=== PATIENT | female | born 1940 | race Caucasian/White ===

== ENCOUNTER 2018-05-10 12:57 | Outpatient (CLI) | payer MEDICARE, SELFPAY ==
[2018-05-10 14:11] LABS: Potassium 4.2 mmol/L (3.5-5.1)
== END 2018-05-10 13:17 ==
PROVIDERS: PCP General Practice; Visit Provider General Practice
DX: E87.6 Hypokalemia (principal)
CPT/HCPCS: 36415; 84132

== ENCOUNTER 2018-05-19 12:09 | Outpatient (REF) | payer MEDICARE, SELFPAY ==
[2018-05-22 23:05] LABS: 6-monoacetylmorphine Not Detected ng/mL (Cutoff: 25); Amphetamines Negative ng/mL (Cutoff: 500); Barbiturates Negative ng/mL (Cutoff: 200); Benzodiazepines Negative ng/mL (Cutoff: 100); Buprenorphine Not Detected ng/mL (Cutoff: 5); Cocaine Negative ng/mL (Cutoff: 150); Comment Normal; Creatinine, U 13.4 mg/dL; Dihydrocodeine Not Detected ng/mL (Cutoff: 25); EDDP Not Detected ng/mL (Cutoff: 25); Fentanyl Not Detected ng/mL (Cutoff: 2); Hydrocodone Not Detected ng/mL (Cutoff: 25); Hydromorphone Not Detected ng/mL (Cutoff: 25); Hydromorphone-3-beta-glucuroni Not Detected ng/mL (Cutoff: 100); Meperidine Not Detected ng/mL (Cutoff: 25); Methadone Not Detected ng/mL (Cutoff: 25); Morphine Not Detected ng/mL (Cutoff: 25); N-desmethyltapentadol Not Detected ng/mL (Cutoff: 50); Naloxone Not Detected ng/mL (Cutoff: 25); Norbuprenorphine Not Detected ng/mL (Cutoff: 5); Norfentanyl Not Detected ng/mL (Cutoff: 2); Norhydrocodone Not Detected ng/mL (Cutoff: 25); Normeperidine Not Detected ng/mL (Cutoff: 25); Noroxycodone Not Detected ng/mL (Cutoff: 25); Noroxymorphone Not Detected ng/mL (Cutoff: 25); O-desmethyltramadol Not Detected ng/mL (Cutoff: 25); Phencyclidine Negative ng/mL (Cutoff: 25); Propoxyphene Not Detected ng/mL (Cutoff: 25); Specific Gravity 1.001; Tapentadol Not Detected ng/mL (Cutoff: 25); Tetrahydrocannabinol Negative ng/mL (Cutoff: 50); Tramadol Not Detected ng/mL (Cutoff: 25); pH 6.4
[2018-05-31 10:00] LABS: Codeine Present ng/mL (Cutoff: 25)
== END 2018-05-19 12:29 ==
LOC: LBN 12:09
PROVIDERS: PCP General Practice; Visit Provider Nurse Practitioner Family
DX: G89.29 Other chronic pain (principal)
CPT/HCPCS: 80307; 80364

== ENCOUNTER 2018-08-30 15:36 | Outpatient (CLI) | payer MEDICARE, SELFPAY ==
[2018-08-30 16:12] LABS: Hemoglobin A1C 8.1 % (4.5-6.2)
== END 2018-08-30 15:56 ==
PROVIDERS: PCP General Practice; Visit Provider General Practice
DX: E11.9 Type 2 diabetes mellitus without complications (principal); R07.9 Chest pain, unspecified
CPT/HCPCS: 36415; 83036

== ENCOUNTER 2018-09-07 15:10 | Outpatient (REF) | payer MEDICARE, SELFPAY ==
[2018-09-13 00:41] LABS: 6-monoacetylmorphine Not Detected ng/mL (Cutoff: 25); Amphetamines Negative ng/mL (Cutoff: 500); Barbiturates Negative ng/mL (Cutoff: 200); Benzodiazepines Negative ng/mL (Cutoff: 100); Buprenorphine Not Detected ng/mL (Cutoff: 5); Cocaine Negative ng/mL (Cutoff: 150); Codeine Present ng/mL (Cutoff: 25); Comment Normal; Creatinine, U 60.9 mg/dL; Dihydrocodeine Not Detected ng/mL (Cutoff: 25); EDDP Not Detected ng/mL (Cutoff: 25); Fentanyl Not Detected ng/mL (Cutoff: 2); Hydrocodone Present ng/mL (Cutoff: 25); Hydromorphone Not Detected ng/mL (Cutoff: 25); Hydromorphone-3-beta-glucuroni Not Detected ng/mL (Cutoff: 100); Meperidine Not Detected ng/mL (Cutoff: 25); Methadone Not Detected ng/mL (Cutoff: 25); Morphine Present ng/mL (Cutoff: 25); N-desmethyltapentadol Not Detected ng/mL (Cutoff: 50); Naloxone Not Detected ng/mL (Cutoff: 25); Norbuprenorphine Not Detected ng/mL (Cutoff: 5); Norfentanyl Not Detected ng/mL (Cutoff: 2); Norhydrocodone Present ng/mL (Cutoff: 25); Normeperidine Not Detected ng/mL (Cutoff: 25); Noroxycodone Not Detected ng/mL (Cutoff: 25); Noroxymorphone Not Detected ng/mL (Cutoff: 25); O-desmethyltramadol Not Detected ng/mL (Cutoff: 25); Phencyclidine Negative ng/mL (Cutoff: 25); Propoxyphene Not Detected ng/mL (Cutoff: 25); Specific Gravity 1.012; Tapentadol Not Detected ng/mL (Cutoff: 25); Tetrahydrocannabinol Negative ng/mL (Cutoff: 50); Tramadol Not Detected ng/mL (Cutoff: 25); pH 5.9
== END 2018-09-07 15:30 ==
LOC: NCHCN 15:10
PROVIDERS: PCP General Practice; Visit Provider Nurse Practitioner Family
DX: Z79.891 Long term (current) use of opiate analgesic (principal); R69 Illness, unspecified
CPT/HCPCS: 80307; 80364

== ENCOUNTER 2018-09-15 09:51 | Inpatient (IN) | payer MEDICARE, SELFPAY ==
--- NOTE | 2018-09-15 10:04 | DI.RAD_ITS ---
SYMPTOM/DIAGNOSIS: FELL, PAIN RIGHT LEG: There is no evidence of a fracture or dislocation. RIGHT SHOULDER: There is some irregularity of the margin of the greater tuberosity and the possibility of a nondisplaced fracture could not be excluded. The findings may be related to an old injury, however if clinically appropriate, further assessment with CT is suggested.
--- NOTE | 2018-09-15 10:04 | ED.GENADUL_ITS ---
Discharge Plan Discharge Details Chief Complaint: Orthopedic Reason For Visit: R HUMERAL HEAD FX, S/P FALL, HYPERGLYCEMIA Admit Date/Time: 09/15/18 12:58 Admit Provider: Toñito Barrow Attending Provider: Toñito Barrow Primary Care Provider: Newton Dawn ED Provider: Nehemiah Adam Discharge Data Discharge Date/Time-TO BE ENTERED AT DEPARTURE: 09/15/18 14:02 Medical Decision Making 77-year-old woman with a history of diabetes/peripheral neuropathy transferred here via EMS for evaluation of injuries sustained in a fall 2 days ago. Denies other constitutional complaints but noted that her serum glucose level was in the 400s this morning prior to taking her morning dose of long-acting insulin and a half dose of her lispro. No distress on arrival but with significant pain in her right shoulder and right proximal leg immediately distal to the knee. Except for dry mucosa, remainder of her exam was unremarkable. Labs significant for GFR = 46, glucose 288, and CO2 = 208. Treated with additional subcu lispro and IV crystalloid. X-rays diagnostic for a possible greater humeral tuberosity fracture and a negative right tib-fib x-ray. Subsequent shoulder CT ordered which was negative for acute fracture. Treated on arrival with 10 units of lispro (other half dose plus extra for her hypoglycemia) and 1 L of lactated Ringer's. repeat serum glucose level = 191. Treated with acetaminophen, ibuprofen, and oral hydromorphone. Discussed case with Dr. Barrow. Admitted for further management. Medical Records Medical records reviewed: Yes I reviewed the patient's medical records. Imaging Data Radiologic Study: Imaging: X-Ray (Right shoulder) My impression: Possible greater humeral tuberosity fracture. Reviewed independently and contemporaneously by myself. Radiologist's impression: same Radiologic Study #2: Attestation: I personally reviewed and interpreted this imaging study as follows: Imaging: X-Ray (Right tibia/fibula) My impression: No acute bony injury appreciated. Reviewed independently contemporaneously by myself. Radiologist's impression: negative Radiologic Study #3: Attestation: I personally reviewed and interpreted this imaging study as follows: Imaging: CT Scan My impression: No evidence of acute fracture. Images interpreted independently contemporaneously by myself. Lab Data Lab results reviewed: Yes I reviewed the patient's lab results. Lab results narrative: GFR = 46, glucose 288, CO2 28 77-year-old woman with a past medical history which includes anxiety/depression, hypertension, hypothyroidism, and insulin-dependent diabetes. She has associated peripheral neuropathy and notes that her serum glucose levels vary at home up to 6-700s which she manages well at home with her . Transported here via EMS for evaluation of extremity injury sustained in a fall on Thursday evening (09/12). She describes losing her balance while walking in her house and having pain in her right shoulder after grabbing a support while her arm was adducted. She also had impact to her right leg with pain in her right knee/proximal lower leg. She denies other significant injury. She was unable to walk independently because of her leg pain and sat in the chair for the day. Yesterday, she was transferred to her bed. Today, she has worsening pain in her right proximal arm and her right knee/lower extremity. She denies any loss of motion/loss of sensation distally. She has had no other stigmata of her fall including no head pain, neck pain, back pain, chest pain/difficulty breathing, abdominal pain, or other extremity injury. HPI General Date/Time Provider Initiated Documentation: 09/15/18 10:01 . Related Data Home Medications Medication Instructions Recorded Confirmed insulin lispro [Humalog] 11 unit SQ DAILY 03/30/13 09/15/18 Glucagon Emergency Kit (human) 1 mg . DIRECTED PRN 05/08/13 09/15/18 nortriptyline 10 mg PO DAILY 08/07/16 09/15/18 levothyroxine 112 mcg tablet 112 mcg PO DAILY 05/12/18 09/15/18 lisinopril 20 mg tablet 20 mg PO DAILY tab-cap 05/12/18 09/15/18 propranolol 10 mg tablet 10 mg PO BID 05/12/18 09/15/18 acetaminophen 300 mg-codeine 30 mg 1 tab PO TID PRN 28 Days #84 tab 09/07/18 09/15/18 tablet MDD 3 tablets/day insulin detemir (U- 100) 100 See Rx Instructions SC BID 09/07/18 09/15/18 unit/mL subcutaneous solution pregabalin [Lyrica] 150 mg PO BID 09/15/18 09/15/18 Previous Rx's Medication Instructions Recorded acetaminophen 300 mg-codeine 30 mg 1 tab PO TID PRN 28 Days #84 tab 09/07/18 tablet MDD 3 tablets/day Allergies Allergy/AdvReac Type Severity Reaction Status Date / Time latex Allergy Unknown Unverified 09/07/18 11:55 propoxyphene HCl Allergy Unknown Unverified 09/07/18 11:55 [From Joi] Review of Systems Review of Systems All systems are reviewed and are unremarkable except as noted in HPI and below: CONSTITUTIONAL: no fevers/chills, no weakness or change in appetite EYES: no change in vision HEENT: no throat pain or difficulty swallowing; no neck pain CARDIOVASCULAR: no chest pain, palpitations, leg swelling, or diaphoresis RESPIRATORY: no cough, dyspnea, wheezing GASTROINTESTINAL: no abdominal pain, melena, nausea/emesis GENITOURINARY: no dysuria, flank pain, MUSCULOSKELETAL: no pack pain, right shoulder/proximal arm pain. Right knee/proximal lower leg pain. Unable to bear weight because of pain INTEGUMENTARY: no rash, no wounds NEUROLOGIC: no headache, focal weakness, difficulty with speech, numbness PSYCHIATRIC: no confusion, no anxiety HEME: no easy bruising or bleeding ALLERGIC: no urticaria All systems reviewed & are unremarkable except as noted in HPI and below PFSH Medical History Anxiety and depression (Acute) Diabetes type 1, controlled (Acute) Neuropathy (Acute) HTN (hypertension) (Chronic) Hypothyroidism (Chronic) Surgical History H/O sinus surgery (Acute) H/O thumb surgery (Acute) S/P wrist surgery (Acute) History of cholecystectomy (Chronic) History of tonsillectomy (Chronic) Social History household members: spouse housing: house number of children: 2 current occupational status: retired what type of physical activity do you participate in: none Smoking and Tabacco status: Never alcohol intake: current alcohol intake frequency: a few times a week Alcohol type: wine substance use type: does not use Exam Narrative Exam Narrative: Nursing note and vital signs have been reviewed and noted. GENERAL: alert, active, no acute distress, well -hydrated, well-nourished HEENT: atraumatic/normocephalic, PERRLA, EOMI, conjunctiva clear, external ears/canals normal, nasal mucosa normal NECK: supple, full range of motion, no mass, normal lymphadenopathy, no thyromegaly CARDIOVASCULAR: RRR, no murmurs, nl pulses, no edema PULMONARY: nl effort, no audible wheezing or stridor, nl breath sounds with no focal deficit. no chest wall tenderness ABDOMEN: soft, non-tender, non-distended, no mass, no organomegaly EXTREMITY: normal muscle tone, all joints with FROM, no deformity or tenderness NUERO: gross motor exam normal, normal stance and gait, PSYCH: alert and oriented, SKIN: no laceration or abrasions
--- NOTE | 2018-09-15 10:21 | NUR.NOTE ---
on the pt fell wile walking out of the kitchen landing on her left side. pt was then transferred to chair by . pt did not leave the chair until the ambulance was called today
[2018-09-15 10:22] VITALS: BP 158/79; PULSE 86; RESP 18; TEMP 36.8; O2SAT 98
[2018-09-15 10:56] LABS: Anion Gap 10.2 mmol/L (3-11); BUN 14 mg/dL (7-18); CO2 27.8 mmol/L (21.0-32.0); CREATININE 1.14 mg/dL (0.55-1.02); Calcium 9.3 mg/dL (8.5-10.1); Chloride 99 mmol/L (98-107); Estimated GFR 46.34 (mL/min/1.73m2); Glucose 288 mg/dL (70-100); Potassium 3.9 mmol/L (3.5-5.1); Sodium 137 mmol/L (136-145)
[2018-09-15] MEDS: Lactated Ringers 1,000 ML 1000 ML IV (11:16)
[2018-09-15] MEDS: Insulin Aspart 100 UNITS/ML UNIT 10 UNITS SC (11:16)
--- NOTE | 2018-09-15 12:58 | DI.CT_ITS ---
SYMPTOMS/DIAGNOSIS: FALL WITH POSSIBLE PROXIMAL HUMERUS FX RIGHT UPPER EXTREMITY CT: There is an apparent nondisplaced fracture involving the greater tuberosity and neck of the humerus.
--- NOTE | 2018-09-15 13:22 | DI.RAD_ITS ---
SYMPTOMS/DIAGNOSIS: FALL, ? INFECTIOUS PROCESS, HX DM AP AND LATERAL CHEST: The lungs are free of infiltrate. There is no pleural effusion. The cardiovascular structures are intact. SUMMARY: Normal chest.
[2018-09-15] MEDS: Acetaminophen 500 MG TAB 1000 MG PO (13:39)
[2018-09-15] MEDS: Ibuprofen 600 MG TAB PO (13:40)
[2018-09-15] MEDS: HYDROmorphone 2 MG TAB PO (13:40)
[2018-09-15 13:56] VITALS: BP 158/79; PULSE 78; RESP 16; TEMP 37.2; O2SAT 98
[2018-09-15 14:00] LABS: Troponin I < 0.02 ng/mL (0.00-0.06)
[2018-09-15 14:05] LABS: Bilirubin Negative (Negative); Blood Trace-lysed (Negative); Clarity Sl Cloudy; Glucose 500 mg/dL (Negative); Ketones 40 mg/dL (Negative); Leukocyte Esterase Negative (Negative); Nitrite Negative (Negative); Specific Gravity 1.025 (1.005-1.025); Urobilinogen 0.2 EU/dL (Up TO 0.2); pH 5.5 (5-8)
[2018-09-15 14:16] VITALS: BP 153/84; PULSE 83; RESP 19; TEMP 36.6; O2SAT 96
[2018-09-15 14:20] LABS: Bacteria Packed HPF (Negative)
[2018-09-15 14:21] LABS: Epithelial Cells Rare HPF (Negative); Other Cells Few Transitional (Negative)
[2018-09-15 14:22] LABS: C & S Indicated? Yes
[2018-09-15] MEDS: Enoxaparin 40 MG/0.4 ML SYR SC (14:24)
[2018-09-15 15:05] VITALS: O2SAT 94
[2018-09-15 16:22] VITALS: BP 125/76; PULSE 82; RESP 19; TEMP 36.2; O2SAT 95
[2018-09-15 16:37] LABS: HCT 41.9 % (36.0-46.0); HGB 13.8 g/dL (12.0-15.5); Mean Corp. HGB Concentration 32.9 g/dL (32.0-36.0); Mean Corpuscular Hemoglobin 30.5 pg (27.0-33.0); Mean Corpuscular Volume 92.7 fL (80-95); Mean Platelet Volume 12.5 fL (8.0-11.0); Platelet Count 164 x1000/uL (130-400); RBC 4.52 m/cumm (4.00-5.20); RBC Distribution Width 12.5 % (11.7-14.6); White Blood Cell Count 9.91 k/cumm (4.4-10.8)
[2018-09-15] MEDS: Acetaminophen 325 MG TAB PO (17:52)
--- NOTE | 2018-09-15 18:01 | W.PM.HP.N ---
Date of service: 09/15/18 Time of Service: 18:01 Assessment and Plan (1) Closed fracture of right proximal humerus: Current visit: Yes Status: Acute Status post fall 2 days prior to her admission. She has been seen by Dr. Foy in the past for a left hip fracture, she would prefer to be seen by Dr. Foy for this right humerus fracture. Apply sling. Tylenol with codeine for mild pain (she takes Tylenol with codeine for chronic pain at home), oxycodone as needed for moderate pain, IV morphine for severe/breakthrough pain. Will contact Dr. Foy tomorrow to see if he is available for orthopedic consult for this patient. Ice for comfort. Continue to monitor. PT consult placed. (2) Right knee pain: Current visit: Yes Status: Acute Status post fall at home. No fracture on plain films. Apply ice for comfort. Pain control as above. PT consulted as she has been unable to ambulate at home. (3) Diabetes mellitus type 1: Current visit: No Status: Acute She has had falls related to hypoglycemia at home. She also reports hyperglycemia. Monitor blood glucose closely. Continue home dose of long-acting insulin at 23 units daily. Aspart per sliding scale. Will adjust as needed. (4) TYLER (acute kidney injury): Current visit: Yes Status: Acute With mildly elevated creatinine on admission. Will give maintenance IV fluids overnight, reassess renal function in the morning. (5) Peripheral neuropathy: Current visit: No Status: Chronic Continue home regimen. (6) Orthodoxy: Current visit: No Status: Chronic No blood products. (7) DVT prophylaxis: Current visit: Yes Status: Acute Subcutaneous Lovenox. (8) Discharge planning issues: Current visit: Yes Status: Acute She is a full code. We discussed CODE STATUS, she would not to like to be intubated for a long period of time. She was unable to ambulate upon coming into the hospital, will have physical therapy work with her, she may require rehab prior to returning home with her elderly . This case is discussed with Dr. Barrow who is in agreement History of Present Illness Chief Complaint: Right arm and right knee pain. Narrative: Gale Steve is a very pleasant 77 year old female with a past medical history significant for type 1 diabetes, hypertension, chronic pain related to peripheral neuropathy and hypothyroidism, who fell at home 2 days ago. She had right shoulder/arm pain and right knee pain and was unable to ambulate which prompted her presentation to the ED. She had an x-ray of her right leg which did not show fracture or dislocation. She had a right shoulder x-ray that could not exclude a nondisplaced fracture, follow up CT of her right upper extremity revealed a nondisplaced fracture involving the greater tuberosity and neck of the humerus. She was admitted to the med/surg floor for further evaluation and treatment. She went on to have a chest x-ray which was normal. She had a urinalysis which was negative for leukocyte esterase, nitrates, 10-20 white blood cells, packed with bacteria, urine culture pending. Troponin was less than 0.02. She had no leukocytosis. She had a mild acute kidney injury with a creatinine of 1.14. Her glucose was elevated in the emergency department, she received insulin with improvement. She denies any dizziness prior to her fall, she denies any heart palpitations, she did not have low blood glucose at the time, she reports that she lost her balance. She denies headaches, fever, chills, shortness of breath, coughing, wheezing, chest pain/pressure, abdominal pain, nausea, vomiting, diarrhea. She is eating and drinking and tolerating her diet. She reports that she has seen Dr. Foy in the past when she fractured her left femur, she would prefer to see Dr. Foy for her right humerus fracture. Review of Systems Review of Systems All systems reviewed & are unremarkable except as noted in HPI and below PFSH Medical History Anxiety and depression (Acute) Diabetes type 1, controlled (Acute) Neuropathy (Acute) HTN (hypertension) (Chronic) Hypothyroidism (Chronic) Surgical History H/O sinus surgery (Acute) H/O thumb surgery (Acute) S/P wrist surgery (Acute) History of cholecystectomy (Chronic) History of tonsillectomy (Chronic) Family History Father Diabetes Heart disease Mother Stroke Social History household members: spouse housing: house number of children: 2 current occupational status: retired what type of physical activity do you participate in: none Smoking and Tabacco status: Never alcohol intake: current alcohol intake frequency: a few times a week Alcohol type: wine substance use type: does not use Meds Home Medications Medication Instructions Recorded Confirmed Type insulin lispro [Humalog] 11 unit SQ DAILY 03/30/13 09/15/18 History Glucagon Emergency Kit (human) 1 mg . DIRECTED PRN 05/08/13 09/15/18 History nortriptyline 10 mg PO DAILY 08/07/16 09/15/18 History levothyroxine 112 mcg tablet 112 mcg PO DAILY 05/12/18 09/15/18 History lisinopril 20 mg tablet 20 mg PO DAILY tab-cap 05/12/18 09/15/18 History propranolol 10 mg tablet 10 mg PO BID 05/12/18 09/15/18 History acetaminophen 300 mg-codeine 30 mg 1 tab PO TID PRN 28 Days #84 tab 09/07/18 09/15/18 Rx tablet MDD 3 tablets/day insulin detemir (U- 100) 100 See Rx Instructions SC BID 09/07/18 09/15/18 History unit/mL subcutaneous solution pregabalin [Lyrica] 150 mg PO BID 09/15/18 09/15/18 History Allergies Allergy/AdvReac Type Severity Reaction Status Date / Time latex Allergy Unknown Unverified 09/07/18 11:55 propoxyphene HCl Allergy Unknown Unverified 09/07/18 11:55 [From Joi] Exam Narrative Exam Narrative: General: Elderly female, pleasant and cooperative, lying flat in bed, in no acute distress. HEENT: Normocephalic, atraumatic, pupils equal and round, mucous membranes moist. Neck: Supple, no JVD. Respiratory: Respirations even and unlabored, lung sounds clear to auscultation throughout. Cardiovascular: Heart has a regular rate and rhythm, no murmur appreciated. GI: Abdomen soft, nontender on palpation, normoactive bowel sounds x4 quadrants, no masses appreciated. Extremities: Right upper extremity with anterior ecchymosis to proximal humerus, no obvious deformity. Radial pulses palpable bilaterally, no clubbing cyanosis or edema of bilateral lower extremities, pedal pulses palpable bilaterally. Right knee appears mildly swollen with no significant ecchymosis. Results Labs : 09/15/18 10:40 09/15/18 10:40 Laboratory Results - last 24 hr 09/15/18 09/15/18 09/15/18 10:05 10:05 10:10 WBC Cancelled RBC Cancelled Hgb Cancelled Hct Cancelled MCV Cancelled MCH Cancelled MCHC Cancelled RDW Cancelled Plt Count Cancelled MPV Cancelled Abs Immat Gran (auto) Cancelled Immature Gran % Cancelled Neutrophils % Cancelled Band Neutrophils % Cancelled Lymphocytes % Cancelled Atypical Lymphs % Cancelled Monocytes % Cancelled Eosinophils % Cancelled Basophils % Cancelled Absolute Neutrophils Cancelled Absolute Lymphocytes Cancelled Absolute Monocytes Cancelled Absolute Eosinophils Cancelled Absolute Basophils Cancelled Metamyelocytes Cancelled Myelocytes Cancelled Promyelocytes Cancelled Nucleated RBCs Cancelled Differential Comment Cancelled Other Cell Type Cancelled RBC Morphology Cancelled Polychromasia Cancelled Hypochromasia Cancelled Poikilocytosis Cancelled Basophilic Stippling Cancelled Anisocytosis Cancelled Microcytosis Cancelled Macrocytosis Cancelled Spherocytes Cancelled Target Cells Cancelled Tear Drop Cells Cancelled Ovalocytes Cancelled Stomatocytes Cancelled Judge[place] Bodies Cancelled Emani Cells Cancelled Acanthocytes (Spur) Cancelled Schistocytes Cancelled Sodium Cancelled Potassium Cancelled Chloride Cancelled Carbon Dioxide Cancelled Anion Gap Cancelled BUN Cancelled Creatinine Cancelled Estimated GFR/1.73 m2 Cancelled Glucose Cancelled Calcium Cancelled Magnesium Cancelled Total Bilirubin Cancelled AST Cancelled ALT Cancelled Alkaline Phosphatase Cancelled Troponin I Cancelled Cancelled Total Protein Cancelled Albumin Cancelled Urine Color Urine Clarity Urine pH Ur Specific [place] Urine Protein Urine Ketones Urine Blood Urine Nitrite Urine Bilirubin Urine Urobilinogen Ur Leukocyte Esterase Urine RBC Urine WBC Ur Epithelial Cells Urine Crystals Urine Bacteria Urine Mucus Urine Other Ur Culture Indicated? Urine Glucose 09/15/18 09/15/18 09/15/18 10:40 10:40 13:24 WBC 9.91 RBC 4.52 Hgb 13.8 Hct 41.9 MCV 92.7 MCH 30.5 MCHC 32.9 RDW 12.5 Plt Count 164 MPV 12.5 H Abs Immat Gran (auto) Immature Gran % Neutrophils % Band Neutrophils % Lymphocytes % Atypical Lymphs % Monocytes % Eosinophils % Basophils % Absolute Neutrophils Absolute Lymphocytes Absolute Monocytes Absolute Eosinophils Absolute Basophils Metamyelocytes Myelocytes Promyelocytes Nucleated RBCs Differential Comment Other Cell Type RBC Morphology Polychromasia Hypochromasia Poikilocytosis Basophilic Stippling Anisocytosis Microcytosis Macrocytosis Spherocytes Target Cells Tear Drop Cells Ovalocytes Stomatocytes Judge[place] Bodies [place] Cells Acanthocytes (Spur) Schistocytes Sodium 137 Potassium 3.9 Chloride 99 Carbon Dioxide 27.8 Anion Gap 10.2 BUN 14 Creatinine 1.14 H Estimated GFR/1.73 m2 46.34 Glucose 288 H Calcium 9.3 Magnesium Total Bilirubin AST ALT Alkaline Phosphatase Troponin I < 0.02 Total Protein Albumin Urine Color Urine Clarity Urine pH Ur Specific [place] Urine Protein Urine Ketones Urine Blood Urine Nitrite Urine Bilirubin Urine Urobilinogen Ur Leukocyte Esterase Urine RBC Urine WBC Ur Epithelial Cells Urine Crystals Urine Bacteria Urine Mucus Urine Other Ur Culture Indicated? Urine Glucose 09/15/18 13:57 WBC RBC Hgb Hct MCV MCH MCHC RDW Plt Count MPV Abs Immat Gran (auto) Immature Gran % Neutrophils % Band Neutrophils % Lymphocytes % Atypical Lymphs % Monocytes % Eosinophils % Basophils % Absolute Neutrophils Absolute Lymphocytes Absolute Monocytes Absolute Eosinophils Absolute Basophils Metamyelocytes Myelocytes Promyelocytes Nucleated RBCs Differential Comment Other Cell Type RBC Morphology Polychromasia Hypochromasia Poikilocytosis Basophilic Stippling Anisocytosis Microcytosis Macrocytosis Spherocytes Target Cells Tear Drop Cells Ovalocytes Stomatocytes Judge[place] Bodies [place] Cells Acanthocytes (Spur) Schistocytes Sodium Potassium Chloride Carbon Dioxide Anion Gap BUN Creatinine Estimated GFR/1.73 m2 Glucose Calcium Magnesium Total Bilirubin AST ALT Alkaline Phosphatase Troponin I Total Protein Albumin Urine Color Yellow Urine Clarity Sl cloudy Urine pH 5.5 Ur Specific [place] 1.025 Urine Protein 30 H Urine Ketones 40 H Urine Blood Trace-lysed H Urine Nitrite Negative Urine Bilirubin Negative Urine Urobilinogen 0.2 Ur Leukocyte Esterase Negative Urine RBC Not Applicable Urine WBC 10-20 Ur Epithelial Cells Rare Urine Crystals Not Applicable Urine Bacteria Packed Urine Mucus Not Applicable Urine Other Few transitional Ur Culture Indicated? Yes Urine Glucose 500 H Last Vital Signs Temp 36.2 C L 09/15/18 16:22 Pulse 82 09/15/18 16:22 Resp 19 09/15/18 16:22 BP 125/76 09/15/18 16:22 Pulse Ox 95 09/15/18 16:22
[2018-09-15] MEDS: Normal Saline Flush 10 ML SYR IVP (20:39)
[2018-09-15] MEDS: Normal Saline 1,000 ML 75 ML IV (20:41)
[2018-09-15] MEDS: Propranolol 10 MG TAB PO (20:42)
[2018-09-15] MEDS: Pregabalin 50 MG CAP 150 MG PO (20:42)
--- NOTE | 2018-09-15 22:55 | NUR.NOTE ---
Nursing Note: Patient has had 2-3 episodes of severe diaphoresis. Soaking her della and the bed. Patient became very pale with each episode. Patient states that she sweats and gets pale when her blood sugar drops too low. Each time her blood sugar was checked and it was not low.
[2018-09-15 23:35] VITALS: BP 123/78; PULSE 79; RESP 17; TEMP 36.5; O2SAT 96
[2018-09-16] VITALS (7 sets, daily range): BP systolic 172–186; BP diastolic 82–93; PULSE 72–87; RESP 18; TEMP 36.7–37.4; O2SAT 93–99
--- NOTE | 2018-09-16 07:10 | PDOC.CMIN ---
- If Service Date Differs Date of service: 09/16/18 Time of Service: 07:10 Care Management Initial Assess REASON FOR HOSPITALIZATION:: Closed fracture of (R) proximal humerus PAST MEDICAL HISTORY/PAST SURGICAL HISTORY:: Anxiety and depression (Acute). Diabetes type 1, controlled (Acute). Neuropathy (Acute). HTN (hypertension) (Chronic). Hypothyroidism (Chronic)H/O sinus surgery (Acute). H/O thumb surgery (Acute). S/P wrist surgery (Acute). History of cholecystectomy (Chronic). History of tonsillectomy (Chronic) PREVIOUS FUNCTIONAL STATUS/SOCIAL/FAMILY SUPPORTS:: Gale resides with her Federico in [facility], whom she has been to for 56 years. Gale states that she has two children, one in [place] and one in [facility]. 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 Gale reports that she has not driven in 18 years, and that her does the driving. Gale is independent at baseline and manages ADL's. CURRENT FUNCTIONAL STATUS:: Currently Gale is sitting up in her chair, she is pleasant and receptive to discussion. ADVANCE DIRECTIVES:: DPOA on file - Federico Steve is agent Has patient been provided with information about the portal?: Yes Did the patient sign up for the portal?: No CODE STATUS:: Full Code INSURANCE COVERAGE / FINANCIAL ISSUES:: Medicare CURRENT HOME/COMMUNITY SERVICES/EQUIPMENT:: Currently Gale has [employer] moderate needs with a homemaker and Bijal Arauz as the senior case manager. Gale has an electric w/c, cane, shower chair, Raised toilet, bed allen, and lifeline at home. PRIMARY CARE PHYSICIAN:: Dr. Dawn POTENTIAL DISCHARGE NEEDS:: F/U appointment with PCP. Home Health - Gale is interested in home health PT/OT. DME - ? need of FWW PATIENT/FAMILY EDUCATION NEEDS:: Review DC instructions, any limitations, and ongoing DC planning discussion. Discuss 'Ask Me Three' ANTICIPATED BARRIERS TO DISCHARGE:: None identified at this time TRANSPORTATION:: Via private vehicle with Federico PLAN:: Gale will return home with new home health PT/OT services, and a resumption of homemaking services. She will F/U with PCP and plan of care as prescribed. Gale's Federico will transport when ready.
--- NOTE | 2018-09-16 07:22 | INITIAL_ITS ---
- If Service Date Differs Date of service: 09/16/18 Time of Service: 07:10 Care Management Initial Assess REASON FOR HOSPITALIZATION:: Closed fracture of (R) proximal humerus PAST MEDICAL HISTORY/PAST SURGICAL HISTORY:: Anxiety and depression (Acute). Diabetes type 1, controlled (Acute). Neuropathy (Acute). HTN (hypertension) (Chronic). Hypothyroidism (Chronic)H/O sinus surgery (Acute). H/O thumb surgery (Acute). S/P wrist surgery (Acute). History of cholecystectomy (Chronic). History of tonsillectomy (Chronic) PREVIOUS FUNCTIONAL STATUS/SOCIAL/FAMILY SUPPORTS:: Gale resides with her Federico in [facility], whom she has been to for 56 years. Gale states that she has two children, one in [place] and one in [facility]. 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 Gale reports that she has not driven in 18 years, and that her does the driving. Gale is independent at baseline and manages ADL's. CURRENT FUNCTIONAL STATUS:: Currently Gale is sitting up in her chair, she is pleasant and receptive to discussion. ADVANCE DIRECTIVES:: DPOA on file - Federico Steve is agent Has patient been provided with information about the portal?: Yes Did the patient sign up for the portal?: No CODE STATUS:: Full Code INSURANCE COVERAGE / FINANCIAL ISSUES:: Medicare CURRENT HOME/COMMUNITY SERVICES/EQUIPMENT:: Currently Gale has [employer] moderate needs with a homemaker and Bijal Arauz as the window caser. Gale has an electric w/c, cane, shower chair, Raised toilet, bed allen, and lifeline at home. PRIMARY CARE PHYSICIAN:: Dr. Dawn POTENTIAL DISCHARGE NEEDS:: F/U appointment with PCP. Home Health - Gale is interested in home health PT/OT. DME - ? need of FWW PATIENT/FAMILY EDUCATION NEEDS:: Review DC instructions, any limitations, and ongoing DC planning discussion. Discuss 'Ask Me Three' ANTICIPATED BARRIERS TO DISCHARGE:: None identified at this time TRANSPORTATION:: Via private vehicle with Federico PLAN:: Gale will return home with new home health PT/OT services, and a resumption of homemaking services. She will F/U with PCP and plan of care as prescribed. Gale's Federico will transport when ready.
[2018-09-16 07:29] LABS: HCT 36.7 % (36.0-46.0); HGB 12.1 g/dL (12.0-15.5); Mean Corpuscular Hemoglobin 30.3 pg (27.0-33.0); Mean Platelet Volume 12.1 fL (8.0-11.0); Platelet Count 128 x1000/uL (130-400); RBC 3.99 m/cumm (4.00-5.20); RBC Distribution Width 12.1 % (11.7-14.6); White Blood Cell Count 7.87 k/cumm (4.4-10.8)
[2018-09-16 07:41] LABS: Anion Gap 12.1 mmol/L (3-11); BUN 13 mg/dL (7-18); CO2 25.9 mmol/L (21.0-32.0); CREATININE 0.76 mg/dL (0.55-1.02); Calcium 8.4 mg/dL (8.5-10.1); Chloride 101 mmol/L (98-107); Glucose 286 mg/dL (70-100); Magnesium 1.3 mg/dL (1.8-2.4); Potassium 3.7 mmol/L (3.5-5.1); Sodium 139 mmol/L (136-145)
[2018-09-16] MEDS: Nortriptyline 10 MG CAP PO (08:12)
[2018-09-16] MEDS: Pregabalin 50 MG CAP 150 MG PO ×2 (08:12→20:58)
[2018-09-16] MEDS: Propranolol 10 MG TAB PO ×2 (08:12→20:58)
[2018-09-16] MEDS: Levothyroxine 112 MCG TAB PO (08:12)
[2018-09-16] MEDS: Insulin Aspart 300 UNITS/3 ML PEN SC ×3 (08:19→17:17)
[2018-09-16 09:14] LABS: TSH 2.22 uIU/mL (0.358-3.74)
[2018-09-16] MEDS: POTASSIUM CHLORIDE 20 MEQ, POTASSIUM CHLORIDE 10 MEQ 30 MEQ PO (09:24)
[2018-09-16] MEDS: Normal Saline 1,000 ML 75 ML IV (09:36)
--- NOTE | 2018-09-16 10:13 | PT.INIE ---
Date of service: 09/16/18 Time of Service: 09:40 PT Notes Inpatient Physical Therapy Evaluation Date: 09/16/18 Referring Doctor: Jossy De Jesus NP PT Orders: PT CONSULT: Fall with subsequent right humeral head fracture, right knee pain, ambulatory dysfunction Precautions: Fall, standard Patient Profile/Admitting Diagnosis: Patient admitted 09/15/17 after suffering a fall at home. She fell on 09/13/2017, striking her right side. X-rays indicated possible fracture of the right shoulder. Patient reporting on admission and inability to ambulate times 2 days. PT consult has been ordered to address mobility issues. PMHX: Diabetes with peripheral neuropathy, anxiety and depression, hypertension, hypothyroidism Social History/Home Situation: Patient lives in a single level home with her elderly . She typically ambulates without an assistive device, although states that she is been thinking about beginning to use a walker due to her escalating falls. She has 5 steps to enter the home, with bilateral rails. She has friends with teenage children whom she hires to do work around the house including firewood, etc. She states that after her fall, they were able to assist her to get into bed and into her chair. Equipment Owned/DME: Power wheelchair, which patient states that she uses occasionally. She thinks she may have a walker at home, although is unsure Subjective: Gale states that she is feeling significantly better today versus yesterday. She has been trying to lift her right leg, and feels that her strength is starting to come back. Her pain is much better managed since getting pain medication this morning. She reports a history of frequent falls. States that she broke her left femur a couple of years ago, and utilized a wheelchair and walker as she rehabilitated. Since then she has had several falls, reporting many in the last 2 months. These typically occur in the home, and she relates these to blood sugar drops and dizziness. Objective: General Observation: Resting in bed with IV in left upper extremity Mental Status: A and O x3 Pain: 5/10 ROM: Right Upper Extremity: Sling in place to right upper extremity. 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 Upper extremity range of motion was otherwise not assessed. Left Upper Extremity: WFL Right Lower Extremity: Hip range of motion allows flexion to 100 degrees, rotation WFL. Right knee allows 0-110 degrees, limited by anterior knee pain. She does have fresh bruising noted throughout the anterior aspect of the right knee Left Lower Extremity: WFL Strength: Right Upper Extremity: Not assessed Left Upper Extremity: Shoulder flexion 4+/5. Biceps 4/5. Cardiac Cath Tech is strong Right Lower Extremity: Hip flexion 4-/5. Knee extension 4-/5. Knee flexion 4/5. Ankle dorsiflexion 4/5 Left Lower Extremity: Hip flexion 5/5. Knee extension 4+/5. Knee flexion 4+/5. Ankle dorsiflexion Sensation: Diminished through bilateral lower extremities Bed Mobility/Transfers: Supine to sit: Mod assist with head of bed at 35 degrees Sit to stand: Min assist Stand to sit: Min assist Bed to chair: Mod assist with hemiwalker Gait: Patient ambulates 4 feet with mod assist and use of left hemiwalker. She requires max cues for technique and equipment management. Balance: Static Sitting: Good Dynamic Sitting: Fair Static Standing: Fair Dynamic Standing: Fair Special Tests: Mobility Limitations Standardized Measure [facility] 6 clicks Basic Mobility Inpatient Short Form: Raw Score: 13 CMS Score: 65% deficit Informed Consent/Education: Patient instructed in purpose of PT consult and plan of care. Assessment: Patient is a 77 year old female referred to physical therapy services with the diagnosis of fall with subsequent right humeral head fracture, right knee pain, ambulatory dysfunction. Patient presents with clinical signs and symptoms consistent with diagnosis, with history of multiple falls. She currently demonstrates the following impairment level findings: 1. Decreased right knee range of motion 2. Mobilization of right upper extremity 3. pain 4. History of falls 5. Gait impairments 6. Decreased balance 7. Decreased strength right lower extremity Impairments are contributing to the following functional limitations: 1. Limited functional use of right upper extremity, due to current immobilization 2. Decreased tolerance to weightbearing on right lower extremity 3. Gait impairments, with reliance on hemiwalker due to inability to bear weight to right upper extremity 4. Unable to independently transfer supine to sit 5. Unable to independently ambulate 6. Unable to independently transfer Patient is assessed as Moderate [id number] complexity based on the following: History: 77-year-old female admitted after fall at home resulting in right humeral head fracture and trauma to the right knee. Complicating factors include advanced age and continuation of living independently with her elderly . Patient also has multiple steps to enter the home, and tolerates only limited weightbearing to the right lower extremity. She also has a complicated medical history including history of multiple falls, and diabetes with peripheral neuropathy. Examination: Functional limitations as noted above Presentation: Evolving Decision Making: Moderate complexity Goals: Goals X1 week 1. Supine-Sit: supervision 2. Sit-Supine: supervision 3. Sit-Stand : supervision 4. Stand-Sit : supervision 5. Bed-Chair: supervision with LRD 6. Chair-Bed: supervision with LRD 7. Gait : supervision with LRD x 25' 8. Stairs: min A with left rail x 5 steps Plan of Care/Treatment Plan: 1-2x/day, 7 days/week x 1 week. Plan of care has been reviewed with the EMPLOYMENT COORDINATOR providing the service under Physical Therapy direction. Initiate Physical Therapy intervention for strengthening, bed mobility, transfers, gait, stairs, balance training, use of assistive device. DISCHARGE RECOMMENDATIONS: Patient is adamant about returning home directly from hospital with assistance from family. She would likely benefit from a brief rehab stay prior to returning home given her significant limitations in mobility today on top of her extensive fall history. Her will be looking into whether they currently on a walker, and will await recommendations from orthopedics with regards to whether she can manage bilateral upper extremity support to walker. Otherwise will require either quad cane or hemiwalker, depending on progression over the next couple of sessions. TREATMENT CODE/TIME: 0940?1010; [id number] Lela Martinez, PT, DPT [facility]
--- NOTE | 2018-09-16 10:16 | IN_ITS ---
Date of service: 09/16/18 Time of Service: 09:40 PT Notes Inpatient Physical Therapy Evaluation Date: 09/16/18 Referring Doctor: Jossy De Jesus NP PT Orders: PT CONSULT: Fall with subsequent right humeral head fracture, right knee pain, ambulatory dysfunction Precautions: Fall, standard Patient Profile/Admitting Diagnosis: Patient admitted 09/15/17 after suffering a fall at home. She fell on 09/13/2017, striking her right side. X-rays indicated possible fracture of the right shoulder. Patient reporting on admission and inability to ambulate times 2 days. PT consult has been ordered to address mobility issues. PMHX: Diabetes with peripheral neuropathy, anxiety and depression, hypertension, hypothyroidism Social History/Home Situation: Patient lives in a single level home with her elderly . She typically ambulates without an assistive device, although states that she is been thinking about beginning to use a walker due to her escalating falls. She has 5 steps to enter the home, with bilateral rails. She has friends with teenage children whom she hires to do work around the house including firewood, etc. She states that after her fall, they were able to assist her to get into bed and into her chair. Equipment Owned/DME: Power wheelchair, which patient states that she uses occasionally. She thinks she may have a walker at home, although is unsure Subjective: Gale states that she is feeling significantly better today versus yesterday. She has been trying to lift her right leg, and feels that her strength is starting to come back. Her pain is much better managed since getting pain medication this morning. She reports a history of frequent falls. States that she broke her left femur a couple of years ago, and utilized a wheelchair and walker as she rehabilitated. Since then she has had several falls, reporting many in the last 2 months. These typically occur in the home, and she relates these to blood sugar drops and dizziness. Objective: General Observation: Resting in bed with IV in left upper extremity Mental Status: A and O x3 Pain: 5/10 ROM: Right Upper Extremity: Sling in place to right upper extremity. 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 Upper extremity range of motion was otherwise not assessed. Left Upper Extremity: WFL Right Lower Extremity: Hip range of motion allows flexion to 100 degrees, rotation WFL. Right knee allows 0-110 degrees, limited by anterior knee pain. She does have fresh bruising noted throughout the anterior aspect of the right knee Left Lower Extremity: WFL Strength: Right Upper Extremity: Not assessed Left Upper Extremity: Shoulder flexion 4+/5. Biceps 4/5. Belt Loop Machine Operator is strong Right Lower Extremity: Hip flexion 4-/5. Knee extension 4-/5. Knee flexion 4/5. Ankle dorsiflexion 4/5 Left Lower Extremity: Hip flexion 5/5. Knee extension 4+/5. Knee flexion 4+/5. Ankle dorsiflexion Sensation: Diminished through bilateral lower extremities Bed Mobility/Transfers: Supine to sit: Mod assist with head of bed at 35 degrees Sit to stand: Min assist Stand to sit: Min assist Bed to chair: Mod assist with hemiwalker Gait: Patient ambulates 4 feet with mod assist and use of left hemiwalker. She requires max cues for technique and equipment management. Balance: Static Sitting: Good Dynamic Sitting: Fair Static Standing: Fair Dynamic Standing: Fair Special Tests: Mobility Limitations Standardized Measure [facility] 6 clicks Basic Mobility Inpatient Short Form: Raw Score: 13 CMS Score: 65% deficit Informed Consent/Education: Patient instructed in purpose of PT consult and plan of care. Assessment: Patient is a 77 year old female referred to physical therapy services with the diagnosis of fall with subsequent right humeral head fracture, right knee pain, ambulatory dysfunction. Patient presents with clinical signs and symptoms consistent with diagnosis, with history of multiple falls. She currently demonstrates the following impairment level findings: 1. Decreased right knee range of motion 2. Mobilization of right upper extremity 3. pain 4. History of falls 5. Gait impairments 6. Decreased balance 7. Decreased strength right lower extremity Impairments are contributing to the following functional limitations: 1. Limited functional use of right upper extremity, due to current immobilization 2. Decreased tolerance to weightbearing on right lower extremity 3. Gait impairments, with reliance on hemiwalker due to inability to bear weight to right upper extremity 4. Unable to independently transfer supine to sit 5. Unable to independently ambulate 6. Unable to independently transfer Patient is assessed as Moderate [id number] complexity based on the following: History: 77-year-old female admitted after fall at home resulting in right humeral head fracture and trauma to the right knee. Complicating factors include advanced age and continuation of living independently with her elderly . Patient also has multiple steps to enter the home, and tolerates only limited weightbearing to the right lower extremity. She also has a complicated medical history including history of multiple falls, and diabetes with peripheral neuropathy. Examination: Functional limitations as noted above Presentation: Evolving Decision Making: Moderate complexity Goals: Goals X1 week 1. Supine-Sit: supervision 2. Sit-Supine: supervision 3. Sit-Stand : supervision 4. Stand-Sit : supervision 5. Bed-Chair: supervision with LRD 6. Chair-Bed: supervision with LRD 7. Gait : supervision with LRD x 25' 8. Stairs: min A with left rail x 5 steps Plan of Care/Treatment Plan: 1-2x/day, 7 days/week x 1 week. Plan of care has been reviewed with the ETHYLBENZENE OXIDIZER providing the service under Physical Therapy direction. Initiate Physical Therapy intervention for strengthening, bed mobility, transfers, gait, stairs, balance training, use of assistive device. DISCHARGE RECOMMENDATIONS: Patient is adamant about returning home directly from hospital with assistance from family. She would likely benefit from a brief rehab stay prior to returning home given her significant limitations in mobility today on top of her extensive fall history. Her will be looking into whether they currently on a walker, and will await recommendations from orthopedics with regards to whether she can manage bilateral upper extremity support to walker. Otherwise will require either quad cane or hemiwalker, depending on progression over the next couple of sessions. TREATMENT CODE/TIME: 0940?1010; [id number] Lela Martinez, PT, DPT [facility]
[2018-09-16] MEDS: MAGNESIUM SULFATE 4 GM/100 ML BAG IVPB (10:29)
[2018-09-16] MEDS: Enoxaparin 40 MG/0.4 ML SYR SC (13:54)
--- NOTE | 2018-09-16 14:11 | OCONE_ITS ---
Date of service: 09/16/18 Time of Service: 14:00 History of Present Illness Chief Complaint: Painful to bear weight on right leg, painful right shoulder Narrative: Is a 77-year-old white female who fell in her home on 09/13/2018 from a standing height. She injured her right shoulder and her right knee. She waited a day before seeking medical attention. She said she could initially bear weight on her right leg, but over the next 2 days the pain got worse until she could not walk. She went to the emergency room yesterday 09/15/2018 and was admitted because she could not walk. No x-rays were taken of the knee. She had x-rays of her tibia and fibula which were negative for fracture. She had x-rays of her right shoulder which showed a nondisplaced 2 part fracture of the proximal humerus. She also had a CT scan of her right shoulder which confirmed a 2 part fracture of the proximal humerus. She is presently in a sling on the right. She reports her shoulder pain is much less. She also reports that her knee pain is less and she was able to take a few steps in the room today. She was fully ambulatory before she fell. I was consulted for further care and treatment. I have previously performed a compression screw fixation of a IT fracture on the left. Consults Consult date: 09/16/18 Requesting physician: Jossy De Jesus Assessment and Plan (1) Right knee pain: Current visit: Yes Status: Acute Assessment: She needs right knee x-rays for better assessment. Even if the x-rays are normal she may need to have an aspiration of her effusion for further diagnosis. Plan: Have discussed with Jossy De Jesus NP. She will order x-rays I can review tomorrow. We will decide whether to do a arthrocentesis of her knee after a look at the x-rays tomorrow. (2) Closed fracture of right proximal humerus: Current visit: Yes Status: Acute Assessment: 2 part fracture proximal humerus minimally displaced in good alignment. All she will need is closed treatment. Plan: Would continue with the sling for comfort. We will start mobilizing her shoulder in a couple of weeks. [facility] Medical History Anxiety and depression (Acute) Diabetes type 1, controlled (Acute) Neuropathy (Acute) HTN (hypertension) (Chronic) Hypothyroidism (Chronic) Surgical History H/O sinus surgery (Acute) H/O thumb surgery (Acute) S/P wrist surgery (Acute) History of cholecystectomy (Chronic) History of tonsillectomy (Chronic) Social History household members: spouse housing: house number of children: 2 current occupational status: retired what type of physical activity do you participate in: none Smoking and Tabacco status: Never alcohol intake: current alcohol intake frequency: a few times a week Alcohol type: wine substance use type: does not use Exam Narrative Exam Narrative: She does appear to have an effusion in her right knee. I can extend her to within a few degrees of full extension. Passive flexion is to 120 degrees. I do not detect any significant significant varus /valgus laxity when stressed and 30 degrees of flexion. She has good AP stability. Right arm is in a sling. Median radial and ulnar nerve function normal in the right hand. She has local tenderness on palpating over the proximal humerus. I review her plain films and a CT scan of her right shoulder. X-rays show a nondisplaced or minimally displaced 2 part fracture proximal humerus on the right. Tib-fib x-rays on the right are normal without fracture. There are no x-rays of the knee. Results Last Vital Signs Temp 36.7 C 09/16/18 08:59 Pulse 81 09/16/18 13:34 Resp 18 09/16/18 08:59 BP 186/82 H 09/16/18 08:59 Pulse Ox 93 L 09/16/18 08:59 Labs : 09/16/18 06:30 09/16/18 06:30 Laboratory Results - last 24 hr 09/15/18 09/15/18 09/15/18 10:40 13:24 13:57 WBC 9.91 RBC 4.52 Hgb 13.8 Hct 41.9 MCV 92.7 MCH 30.5 MCHC 32.9 RDW 12.5 Plt Count 164 MPV 12.5 H Sodium Potassium Chloride Carbon Dioxide Anion Gap BUN Creatinine Estimated GFR/1.73 m2 Glucose Calcium Magnesium Troponin I < 0.02 TSH Urine Color Yellow Urine Clarity Sl cloudy Urine pH 5.5 Ur Specific [place] 1.025 Urine Protein 30 H Urine Ketones 40 H Urine Blood Trace-lysed H Urine Nitrite Negative Urine Bilirubin Negative Urine Urobilinogen 0.2 Ur Leukocyte Esterase Negative Urine RBC Not Applicable Urine WBC 10-20 Ur Epithelial Cells Rare Urine Crystals Not Applicable Urine Bacteria Packed Urine Mucus Not Applicable Urine Other Few transitional Ur Culture Indicated? Yes Urine Glucose 500 H 09/16/18 09/16/18 06:30 06:30 WBC 7.87 RBC 3.99 L Hgb 12.1 Hct 36.7 MCV 92.0 MCH 30.3 MCHC 33.0 RDW 12.1 Plt Count 128 L MPV 12.1 H Sodium 139 Potassium 3.7 Chloride 101 Carbon Dioxide 25.9 Anion Gap 12.1 H BUN 13 Creatinine 0.76 Estimated GFR/1.73 m2 >= 60.00 Glucose 286 H Calcium 8.4 L Magnesium 1.3 L Troponin I TSH 2.22 Urine Color Urine Clarity Urine pH Ur Specific [place] Urine Protein Urine Ketones Urine Blood Urine Nitrite Urine Bilirubin Urine Urobilinogen Ur Leukocyte Esterase Urine RBC Urine WBC Ur Epithelial Cells Urine Crystals Urine Bacteria Urine Mucus Urine Other Ur Culture Indicated? Urine Glucose
--- NOTE | 2018-09-16 14:24 | PT.INTREAT ---
Date of service: 09/16/18 Time of Service: 14:24 PT Notes Inpatient Physical Therapy Treatment Note [facility] Date: 09/16/18 PRECAUTIONS: Fall SUBJECTIVE: Gale states that she feels that she was left sitting up in her chair for too long this morning, she reports that she struggled to get back to bed after sitting up that long. OBJECTIVE: PAIN: Patient complained of right shoulder pain with stand?to?sit transfer BED MOBILITY/TRANSFERS Supine-sit: CGA Sit-stand: Min A Stand-sit: CGA GAIT Assistive Device: Hemiwalker Weight bearing: WBAT Assist: Min A x2 Distance: 10' x2 Deviation: Minimal cueing for gait sequence with hemiwalker ASSESSMENT: Patient tolerated session well with minimal complaint of right shoulder pain. She was able to tolerate a progression in gait distance with hemiwalker, with minimal cueing for gait sequence. She would benefit from continued gait and transfer training as well as strengthening for improved mobility and activity tolerance. PLAN: Continue with PT's POC TREATMENT CODE/TIME: 20 minutes; [id number]
--- NOTE | 2018-09-16 15:15 | DI.RAD_ITS ---
SYMPTOM/DIAGNOSIS: RT KNEE SWELLING, PAIN, S/P FALL, HUMERUS FX RIGHT KNEE: Three views. The bones appear osteopenic. No definite acute fracture or dislocation is identified. Note is made of a suprapatellar effusion. Vascular calcifications are present. IMPRESSION: No definite evidence of an acute fracture. Suprapatellar joint effusion. This can be seen with trauma or infection. If there is continued concern for an occult fracture, CT scan and/or MRI should be considered for further evaluation.
--- NOTE | 2018-09-16 15:16 | W.PM.PROGNOT ---
Date of Service Date of service: 09/16/18 Time of Service: 15:16 Assessment and Plan (1) Closed fracture of right proximal humerus: Current visit: Yes Status: Acute Status post fall 2 days prior to her admission. She has been seen by Dr. Foy, ortho, he is requesting right knee x-ray- currently pending. Continue sling to right arm for comfort, begin to mobilize right arm in 2 weeks. Tylenol with codeine for mild pain (she takes Tylenol with codeine for chronic pain at home), oxycodone as needed for moderate pain, IV morphine for severe/breakthrough pain. Ice for comfort. Continue PT. Ortho to follow up tomorrow after reviewing right knee films, possible right knee aspiration tomorrow. Reports falls at home, place on tele, EKG pending. (2) Right knee pain: Current visit: Yes Status: Acute As above. (3) UTI (urinary tract infection): Current visit: Yes Status: Acute Urine culture growing e-coli, >100,000 colonies. IV Ceftriaxone initiated today. Continue to monitor cultures. (4) Diabetes mellitus type 1: Current visit: No Status: Acute Monitor blood glucose closely. Continue home dose of long-acting insulin at 23 units daily. Aspart per sliding scale, increased to moderate today. Adjust insulin as needed. Continue ADA diet. (5) TYLER (acute kidney injury): Current visit: Yes Status: Acute With mildly elevated creatinine on admission. Creatinine normal today. Discontinue IV fluids and reassess BMP in the morning. (6) Peripheral neuropathy: Current visit: No Status: Chronic Continue home regimen. 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 (8) DVT prophylaxis: Current visit: Yes Status: Acute Subcutaneous Lovenox. (9) Discharge planning issues: Current visit: Yes Status: Acute She is a full code. We discussed CODE STATUS, she would not to like to be intubated for a long period of time. She was unable to ambulate upon coming into the hospital, Continue physical therapy, she may require rehab prior to returning home with her elderly , she would prefer to return home. This case is discussed with Dr. Barrow who is in agreement Subjective Interval history since last seen: Mrs. Steve is a very pleasant 77-year-old female with a past medical history significant for type 1 diabetes, hypertension, chronic pain related to peripheral neuropathy and hypothyroidism. She fell at home and sustained a right humerus fracture, she presented to the emergency department because she was unable to bear weight due to the pain in her right knee. She also reported swelling in that right knee. She had a tib/fib x-ray which did not show a fracture. She was seen by Dr. Foy, orthopedics who requests a right knee x-ray. She continues to report pain in the right arm, she is wearing a sling. She reports improvement in her right knee pain. She is not using her PRN pain medications. She is working with PT. She plans to return home when she is ready for discharge. Her urine culture is growing e-coli, >100,000 colonies, she denies dysuria or hematuria, no fevers, chills, shortness of breath, coughing, wheezing, chest pain/pressure, abdominal pain, nausea, vomiting, diarrhea. She is eating and drinking and tolerating her diet. Exam Narrative Exam Narrative: General: Elderly female, pleasant and cooperative, lying in bed with head of bed elevated, in no acute distress. HEENT: Normocephalic, atraumatic, pupils equal and round, mucous membranes moist. Neck: Supple, no JVD. Respiratory: Respirations even and unlabored, lung sounds clear to auscultation throughout. Cardiovascular: Heart has a regular rate and rhythm, no murmur appreciated. GI: Abdomen soft, nontender on palpation, normoactive bowel sounds x4 quadrants, no masses appreciated. Extremities: Right upper extremity with anterior ecchymosis over proximal humerus, no obvious deformity. Radial pulses palpable bilaterally, no clubbing cyanosis or edema of bilateral lower extremities, pedal pulses palpable bilaterally. Right knee appears mildly swollen with no significant ecchymosis. Objective Objective Clinical Data: Abnormal lab results 09/15/18 09/16/18 09/16/18 Range/Units 10:40 06:30 06:30 RBC 3.99 L (4.00-5.20) m/cumm Plt Count 128 L (130-400) x1000/uL MPV 12.5 H 12.1 H (8.0-11.0) fL Anion Gap 12.1 H (3-11) mmol/L Glucose 286 H (70-100) mg/dL Calcium 8.4 L (8.5-10.1) mg/dL Magnesium 1.3 L (1.8-2.4) mg/dL Vital Signs Temperature 36.7 C 09/16/18 08:59 Temperature Source Tympanic 09/16/18 08:59 Pulse 81 09/16/18 13:34 Pulse Rhythm Regular 09/16/18 09:18 Respiratory Rate 18 09/16/18 08:59 Respiratory Effort Non-Labored 09/16/18 09:18 Respiratory Depth Normal 09/16/18 09:18 Respiratory Pattern Normal 09/16/18 04:30 Blood Pressure 186/82 H 09/16/18 08:59 Blood Pressure Position Sitting 09/15/18 10:22 Pulse Oximetry 93 L 09/16/18 08:59 Oxygen Delivery Method Room Air 09/16/18 08:59 Oxygen Flow Rate 0 09/16/18 08:59 Pain Level 1 09/15/18 23:35 Intake & Output 09/15/18 09/16/18 09/16/18 23:59 11:59 23:59 Intake Total 1240 / 1240 1336.25 / 1598.75 262.5 / 1598.75 Output Total 300 / 300 650 / 650 Balance 940 / 940 686.25 / 948.75 262.5 / 948.75 Weight 72.4 kg 72.5 kg Intake: IV 1000 / 1000 1136.25 / 1248.75 112.5 / 1248.75 Oral 240 / 240 200 / 350 150 / 350 Output: Urine 300 / 300 650 / 650 Other: Urine Color Straw Light Neena Light Neena Urine Appearance Clear Clear Cloudy Urine Odor Normal Comment amount unknown. Stool Size Moderate Stool Characteristics Liquid Soft Brown Formed Brown Voiding Methods Bedpan Bedpan Toilet Laboratory Results WBC 7.87 k/cumm (4.4-10.8) 09/16/18 06:30 RBC 3.99 m/cumm (4.00-5.20) L 09/16/18 06:30 Hgb 12.1 g/dL (12.0-15.5) 09/16/18 06:30 Hct 36.7 % (36.0-46.0) 09/16/18 06:30 MCV 92.0 fL (80-95) 09/16/18 06:30 MCH 30.3 pg (27.0-33.0) 09/16/18 06:30 MCHC 33.0 g/dL (32.0-36.0) 09/16/18 06:30 RDW 12.1 % (11.7-14.6) 09/16/18 06:30 Plt Count 128 x1000/uL (130-400) L 09/16/18 06:30 MPV 12.1 fL (8.0-11.0) H 09/16/18 06:30 Abs Immat Gran (auto) Cancelled 09/15/18 10:05 Immature Gran % Cancelled 09/15/18 10:05 Neutrophils % Cancelled 09/15/18 10:05 Band Neutrophils % Cancelled 09/15/18 10:05 Lymphocytes % Cancelled 09/15/18 10:05 Atypical Lymphs % Cancelled 09/15/18 10:05 Monocytes % Cancelled 09/15/18 10:05 Eosinophils % Cancelled 09/15/18 10:05 Basophils % Cancelled 09/15/18 10:05 Absolute Neutrophils Cancelled 09/15/18 10:05 Absolute Lymphocytes Cancelled 09/15/18 10:05 Absolute Monocytes Cancelled 09/15/18 10:05 Absolute Eosinophils Cancelled 09/15/18 10:05 Absolute Basophils Cancelled 09/15/18 10:05 Metamyelocytes Cancelled 09/15/18 10:05 Myelocytes Cancelled 09/15/18 10:05 Promyelocytes Cancelled 09/15/18 10:05 Nucleated RBCs Cancelled 09/15/18 10:05 Differential Comment Cancelled 09/15/18 10:05 Other Cell Type Cancelled 09/15/18 10:05 RBC Morphology Cancelled 09/15/18 10:05 Polychromasia Cancelled 09/15/18 10:05 Hypochromasia Cancelled 09/15/18 10:05 Poikilocytosis Cancelled 09/15/18 10:05 Basophilic Stippling Cancelled 09/15/18 10:05 Anisocytosis Cancelled 09/15/18 10:05 Microcytosis Cancelled 09/15/18 10:05 Macrocytosis Cancelled 09/15/18 10:05 Spherocytes Cancelled 09/15/18 10:05 Target Cells Cancelled 09/15/18 10:05 Tear Drop Cells Cancelled 09/15/18 10:05 Ovalocytes Cancelled 09/15/18 10:05 Stomatocytes Cancelled 09/15/18 10:05 [place] Bodies Cancelled 09/15/18 10:05 [place] Cells Cancelled 09/15/18 10:05 Acanthocytes (Spur) Cancelled 09/15/18 10:05 Schistocytes Cancelled 09/15/18 10:05 Sodium 139 mmol/L (136-145) 09/16/18 06:30 Potassium 3.7 mmol/L (3.5-5.1) 09/16/18 06:30 Chloride 101 mmol/L (98-107) 09/16/18 06:30 Carbon Dioxide 25.9 mmol/L (21.0-32.0) 09/16/18 06:30 Anion Gap 12.1 mmol/L (3-11) H 09/16/18 06:30 BUN 13 mg/dL (7-18) 09/16/18 06:30 Creatinine 0.76 mg/dL (0.55-1.02) 09/16/18 06:30 Estimated GFR/1.73 m2 >= 60.00 (mL/min/1.73m2) 09/16/18 06:30 Glucose 286 mg/dL (70-100) H 09/16/18 06:30 Calcium 8.4 mg/dL (8.5-10.1) L 09/16/18 06:30 Magnesium 1.3 mg/dL (1.8-2.4) L 09/16/18 06:30 Total Bilirubin Cancelled 09/15/18 10:05 AST Cancelled 09/15/18 10:05 ALT Cancelled 09/15/18 10:05 Alkaline Phosphatase Cancelled 09/15/18 10:05 Troponin I < 0.02 ng/mL (0.00-0.06) 09/15/18 13:24 Total Protein Cancelled 09/15/18 10:05 Albumin Cancelled 09/15/18 10:05 TSH 2.22 uIU/mL (0.358-3.74) 09/16/18 06:30 Urine Color Yellow (Yellow) 09/15/18 13:57 Urine Clarity Sl cloudy 09/15/18 13:57 Urine pH 5.5 (5-8) 09/15/18 13:57 Ur Specific [place] 1.025 (1.005-1.025) 09/15/18 13:57 Urine Protein 30 mg/dL (Negative) H 09/15/18 13:57 Urine Ketones 40 mg/dL (Negative) H 09/15/18 13:57 Urine Blood Trace-lysed (Negative) H 09/15/18 13:57 Urine Nitrite Negative (Negative) 09/15/18 13:57 Urine Bilirubin Negative (Negative) 09/15/18 13:57 Urine Urobilinogen 0.2 EU/dL (Up TO 0.2) 09/15/18 13:57 Ur Leukocyte Esterase Negative (Negative) 09/15/18 13:57 Urine RBC Not Applicable 09/15/18 13:57 Urine WBC 10-20 HPF (0-5) 09/15/18 13:57 Ur Epithelial Cells Rare HPF (Negative) 09/15/18 13:57 Urine Crystals Not Applicable 09/15/18 13:57 Urine Bacteria Packed HPF (Negative) 09/15/18 13:57 Urine Mucus Not Applicable 09/15/18 13:57 Urine Other Few transitional (Negative) 09/15/18 13:57 Ur Culture Indicated? Yes 09/15/18 13:57 Urine Glucose 500 mg/dL (Negative) H 09/15/18 13:57
--- NOTE | 2018-09-16 15:18 | PHARADMIT ---
Addendum entered by Jaime Mendoza III 09/17/18 14:56: Patient complained of right knee pain. determine it is from an occult fracture, he aspirated the knee and injected with steroid. Continue mobilization and PT. Patient should ready for discharge tomorrow. Patient also has UTI treated with Rocephin. VS-OK pain:11/10 K+3.6 Labs-WNL Original Note: Admission Pharmacy Clinical Review R HUMERAL HEAD FX, S/P FALL, HYPERGLYCEMIA Code Status Full Code Current Weight Wgt-72.5 kg Renally Cleared and Narrow Therapeutic Index Meds CrCl~ 49.48 mL/min Meds-OK QTc Value / Action Taken QTc-473 BP Control, Fever BP- 186/82 Tmax- 36.7C Electrolytes reviewed Na-139 K+3.7 Mag- 1.3 DVT Prophylaxis Lovenox Opiate Usage / Scheduled Bowel Regimen Ordered Yes Yes Plt/SCr for Heparin / Enoxaparin Plts-128 SCr-0.76 INR for Warfarin na H/H stable, WBC/Bands H&H-12.1/36.7 WBC- 7.87 Antibiotic appropriateness Rocephin, Cultures and Sensitivities [id number] Surgical ABX d/c within 24 hr na DM control / Insulin Dosing BG-286 Detemir, Aspart Heart Failure (Check EF%) (ADRIA's, B-Block, Diuretics) Propranolol IV to PO Switch No Home Meds Reviewed Yes Home Meds Not Ordered Lisinopril, Glucagon,, Lispro, Comments Flu vaccine given
[2018-09-16] MEDS: Normal Saline Flush 10 ML SYR IVP (15:42)
--- NOTE | 2018-09-16 16:27 | DI.VRAD_ITS ---
EXAM: XR Right Knee, 3 Views EXAM DATE/TIME: 09/16/2018 4:00 PM CLINICAL HISTORY: 77 years old, female; Injury or trauma; Fall; Initial encounter; Blunt trauma; Knee; Right; Patient HX: Right knee swelling and pain; Additional info: S/P fall w/humerusfx TECHNIQUE: XR Right knee 3 views. COMPARISON: CR XR tib/fib RT 09/15/2018 11:32 AM FINDINGS: Bones/joints: No acute fracture identified. Skeletal degenerative changes are seen. Soft tissues: There is a suprapatellar knee effusion. Vascular and soft tissue calcifications are seen. IMPRESSION: 1. No acute fracture identified. 2. Suprapatellar knee effusion. This is a nonspecific finding that can be seen with trauma or infection. If symptoms remain concerning, MRI could be considered. Dictated and Authenticated by: Bethanie Gonsales MD. Ordering:LORENE Fenton MD
[2018-09-16] MEDS: Lisinopril 20 MG TAB PO (17:38)
[2018-09-17] VITALS (8 sets, daily range): BP systolic 156–186; BP diastolic 75–85; PULSE 71–84; RESP 17–20; TEMP 36.6–38.1; O2SAT 93–98
[2018-09-17 07:04] LABS: HCT 34.5 % (36.0-46.0); HGB 11.4 g/dL (12.0-15.5); Mean Corpuscular Hemoglobin 30.3 pg (27.0-33.0); Mean Corpuscular Volume 91.8 fL (80-95); Mean Platelet Volume 11.9 fL (8.0-11.0); Platelet Count 157 x1000/uL (130-400); RBC 3.76 m/cumm (4.00-5.20); RBC Distribution Width 12.2 % (11.7-14.6)
[2018-09-17 07:06] LABS: Anion Gap 9.2 mmol/L (3-11); BUN 12 mg/dL (7-18); CO2 27.8 mmol/L (21.0-32.0); CREATININE 0.79 mg/dL (0.55-1.02); Calcium 8.4 mg/dL (8.5-10.1); Chloride 104 mmol/L (98-107); Glucose 127 mg/dL (70-100); Potassium 3.6 mmol/L (3.5-5.1); Sodium 141 mmol/L (136-145)
[2018-09-17] MEDS: Pregabalin 50 MG CAP 150 MG PO ×2 (08:22→20:03)
[2018-09-17] MEDS: Levothyroxine 112 MCG TAB PO (08:22)
[2018-09-17] MEDS: Nortriptyline 10 MG CAP PO (08:23)
[2018-09-17] MEDS: Normal Saline Flush 10 ML SYR IVP ×2 (08:23→13:09)
[2018-09-17] MEDS: Lisinopril 20 MG TAB PO (08:23)
[2018-09-17] MEDS: Propranolol 10 MG TAB PO ×2 (08:23→20:03)
[2018-09-17] MEDS: Insulin Aspart 300 UNITS/3 ML PEN SC ×3 (08:24→17:26)
--- NOTE | 2018-09-17 08:32 | PT.INTREAT ---
Date of service: 09/17/18 Time of Service: 08:32 PT Notes Inpatient Physical Therapy Treatment Note [facility] Date: 09/17/18 PRECAUTIONS: Fall SUBJECTIVE: Gale states that she is feeling better today, although reports some stiffness in her R knee area. OBJECTIVE: PAIN: Patient c/o some discomfort/stiffness in R knee with gait training BED MOBILITY/TRANSFERS Supine-sit: SBA with HOB at 10 degrees Sit-stand: CGA Stand-sit: CGA GAIT Assistive Device: Hemiwalker Weight bearing: WBAT Assist: CGA Distance: 20' in a.m.; 15' x2 + 5' x2 in p.m. Deviation: Minimal cueing for gait sequence with HW in a.m., slow pace. THEREX: Patient completed a LE strengthening program, as per flow sheet. She was able to tolerate a progression in her program, modifications made to reps are noted on flow sheet. STAIRS: Up/down 3x4 and 2x6 using 1 rail L and a step-to pattern with CGA-SBA ASSESSMENT: Patient tolerated session well with minimal c/o R knee stiffness and discomfort with gait training. Patient required decreased assist with gait training and bed mobility today, compared to yesterday. She was able to tolerate a progression in ther ex as well as gait distance with hemiwalker support. Patient would benefit from continued strengthening as well as gait and transfer training for improved mobility. PLAN: Continue with PT's POC TREATMENT CODE/TIME: Session 1: 30 minutes; [id number], [id number] Session 2: 25 minutes; [id number] x2
[2018-09-17 10:09] LABS: Magnesium 1.8 mg/dL (1.8-2.4)
[2018-09-17] MEDS: Bupivacaine 0.5% Pres-Free 30 ML VIAL (10:25)
[2018-09-17] MEDS: methylPREDNISolone ACETATE 80 MG/ML VIAL IM (10:27)
--- NOTE | 2018-09-17 10:27 | NUR.NOTE ---
Assisted Dr. Foy with Right Knee injection with Bupivacaine/Depomedrol
[2018-09-17] MEDS: Magnesium Oxide 400 MG TAB PO (10:46)
[2018-09-17] MEDS: Potassium Chloride 20 MEQ TABCR 40 MEQ PO (10:47)
--- NOTE | 2018-09-17 12:21 | PGE_ITS ---
Date of Service Date of service: 09/17/18 Time of Service: 12:15 Assessment and Plan (1) Hemarthrosis, right knee: Current visit: Yes Status: Acute Assessment: Hemarthrosis right knee, probably due to occult fracture. Since blood is an irritant to the knee, the aspiration and injection with steroid should calm this down. The possibility of an occult fracture should not change her mobilization plans. She can be weightbearing as tolerated to the right knee. Hopefully the injection will allow her to progress to the more rapidly. Plan: Continue icing of her knee. Continue mobilize with PT. Continue to be weightbearing as tolerated to the right knee. Should follow-up with me or her shoulder and her knee in 1 or 2 weeks after she is discharged. Subjective Interval history since last seen: She is feeling a little bit better but her right knee is still sore. Exam Narrative Exam Narrative: I review x-rays of her right knee from yesterday. I do not see any fractures. The joint spaces are well-maintained. She really has very little degenerative change for her age. Using a sterile technique I perform an arthrocentesis of her right knee from a superolateral portal. I remove about 8 or 9 cc of thick blood. I then inject into her knee 15 cc of 0.5% Marcaine solution along with 80 mg Depo-Medrol. Following the injection I cycle her knee from full extension to flexion. She has excellent relief of pain within just a couple of minutes of the injection. Objective Objective Clinical Data: Abnormal lab results 09/17/18 09/17/18 Range/Units 06:21 06:21 RBC 3.76 L (4.00-5.20) m/cumm Hgb 11.4 L (12.0-15.5) g/dL Hct 34.5 L (36.0-46.0) % MPV 11.9 H (8.0-11.0) fL Glucose 127 H D (70-100) mg/dL Calcium 8.4 L (8.5-10.1) mg/dL Vital Signs Temperature 36.8 C 09/17/18 07:40 Temperature Source Tympanic 09/17/18 07:40 Pulse 76 09/17/18 07:40 Pulse Rhythm Irregular 09/17/18 07:35 Respiratory Rate 20 09/17/18 07:40 Respiratory Effort Non-Labored 09/17/18 07:35 Respiratory Depth Normal 09/17/18 07:35 Respiratory Pattern Normal 09/17/18 07:35 Blood Pressure 156/82 H 09/17/18 07:40 Blood Pressure Position Sitting 09/15/18 10:22 Pulse Oximetry 93 L 09/17/18 07:40 Oxygen Delivery Method Room Air 09/17/18 07:40 Oxygen Flow Rate 0 09/17/18 07:40 Pain Level 1 09/17/18 07:49 Intake & Output 09/16/18 09/17/18 09/17/18 23:59 11:59 23:59 Intake Total 492.5 / 1828.75 240 / 240 Output Total 550 / 1200 900 / 900 Balance -57.5 / 628.75 -660 / -660 Weight 73 kg Intake: IV 342.5 / 1478.75 Oral 150 / 350 240 / 240 Output: Urine 550 / 1200 900 / 900 Other: Urine Color Yellow Dark Neena Urine Appearance Cloudy Cloudy Urine Odor Normal Comment amount unknown. Stool Characteristics Soft Formed Brown Voiding Methods Bedside Commode Bedside Commode Laboratory Results WBC 6.30 k/cumm (4.4-10.8) 09/17/18 06:21 RBC 3.76 m/cumm (4.00-5.20) L 09/17/18 06:21 Hgb 11.4 g/dL (12.0-15.5) L 09/17/18 06:21 Hct 34.5 % (36.0-46.0) L 09/17/18 06:21 MCV 91.8 fL (80-95) 09/17/18 06:21 MCH 30.3 pg (27.0-33.0) 09/17/18 06:21 MCHC 33.0 g/dL (32.0-36.0) 09/17/18 06:21 RDW 12.2 % (11.7-14.6) 09/17/18 06:21 Plt Count 157 x1000/uL (130-400) 09/17/18 06:21 MPV 11.9 fL (8.0-11.0) H 09/17/18 06:21 Abs Immat Gran (auto) Cancelled 09/15/18 10:05 Immature Gran % Cancelled 09/15/18 10:05 Neutrophils % Cancelled 09/15/18 10:05 Band Neutrophils % Cancelled 09/15/18 10:05 Lymphocytes % Cancelled 09/15/18 10:05 Atypical Lymphs % Cancelled 09/15/18 10:05 Monocytes % Cancelled 09/15/18 10:05 Eosinophils % Cancelled 09/15/18 10:05 Basophils % Cancelled 09/15/18 10:05 Absolute Neutrophils Cancelled 09/15/18 10:05 Absolute Lymphocytes Cancelled 09/15/18 10:05 Absolute Monocytes Cancelled 09/15/18 10:05 Absolute Eosinophils Cancelled 09/15/18 10:05 Absolute Basophils Cancelled 09/15/18 10:05 Metamyelocytes Cancelled 09/15/18 10:05 Myelocytes Cancelled 09/15/18 10:05 Promyelocytes Cancelled 09/15/18 10:05 Nucleated RBCs Cancelled 09/15/18 10:05 Differential Comment Cancelled 09/15/18 10:05 Other Cell Type Cancelled 09/15/18 10:05 RBC Morphology Cancelled 09/15/18 10:05 Polychromasia Cancelled 09/15/18 10:05 Hypochromasia Cancelled 09/15/18 10:05 Poikilocytosis Cancelled 09/15/18 10:05 Basophilic Stippling Cancelled 09/15/18 10:05 Anisocytosis Cancelled 09/15/18 10:05 Microcytosis Cancelled 09/15/18 10:05 Macrocytosis Cancelled 09/15/18 10:05 Spherocytes Cancelled 09/15/18 10:05 Target Cells Cancelled 09/15/18 10:05 Tear Drop Cells Cancelled 09/15/18 10:05 Ovalocytes Cancelled 09/15/18 10:05 Stomatocytes Cancelled 09/15/18 10:05 [place] Bodies Cancelled 09/15/18 10:05 [place] Cells Cancelled 09/15/18 10:05 Acanthocytes (Spur) Cancelled 09/15/18 10:05 Schistocytes Cancelled 09/15/18 10:05 Sodium 141 mmol/L (136-145) 09/17/18 06:21 Potassium 3.6 mmol/L (3.5-5.1) 09/17/18 06:21 Chloride 104 mmol/L (98-107) 09/17/18 06:21 Carbon Dioxide 27.8 mmol/L (21.0-32.0) 09/17/18 06:21 Anion Gap 9.2 mmol/L (3-11) 09/17/18 06:21 BUN 12 mg/dL (7-18) 09/17/18 06:21 Creatinine 0.79 mg/dL (0.55-1.02) 09/17/18 06:21 Estimated GFR/1.73 m2 >= 60.00 (mL/min/1.73m2) 09/17/18 06:21 Glucose 127 mg/dL (70-100) H D 09/17/18 06:21 Calcium 8.4 mg/dL (8.5-10.1) L 09/17/18 06:21 Magnesium 1.8 mg/dL (1.8-2.4) 09/17/18 06:21 Total Bilirubin Cancelled 09/15/18 10:05 AST Cancelled 09/15/18 10:05 ALT Cancelled 09/15/18 10:05 Alkaline Phosphatase Cancelled 09/15/18 10:05 Troponin I < 0.02 ng/mL (0.00-0.06) 09/15/18 13:24 Total Protein Cancelled 09/15/18 10:05 Albumin Cancelled 09/15/18 10:05 TSH 2.22 uIU/mL (0.358-3.74) 09/16/18 06:30 Urine Color Yellow (Yellow) 09/15/18 13:57 Urine Clarity Sl cloudy 09/15/18 13:57 Urine pH 5.5 (5-8) 09/15/18 13:57 Ur Specific [place] 1.025 (1.005-1.025) 09/15/18 13:57 Urine Protein 30 mg/dL (Negative) H 09/15/18 13:57 Urine Ketones 40 mg/dL (Negative) H 09/15/18 13:57 Urine Blood Trace-lysed (Negative) H 09/15/18 13:57 Urine Nitrite Negative (Negative) 09/15/18 13:57 Urine Bilirubin Negative (Negative) 09/15/18 13:57 Urine Urobilinogen 0.2 EU/dL (Up TO 0.2) 09/15/18 13:57 Ur Leukocyte Esterase Negative (Negative) 09/15/18 13:57 Urine RBC Not Applicable 09/15/18 13:57 Urine WBC 10-20 HPF (0-5) 09/15/18 13:57 Ur Epithelial Cells Rare HPF (Negative) 09/15/18 13:57 Urine Crystals Not Applicable 09/15/18 13:57 Urine Bacteria Packed HPF (Negative) 09/15/18 13:57 Urine Mucus Not Applicable 09/15/18 13:57 Urine Other Few transitional (Negative) 09/15/18 13:57 Ur Culture Indicated? Yes 09/15/18 13:57 Urine Glucose 500 mg/dL (Negative) H 09/15/18 13:57
[2018-09-17] MEDS: Enoxaparin 40 MG/0.4 ML SYR SC (13:08)
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
--- NOTE | 2018-09-17 13:53 | PDOC.CMPRO ---
- If Service Date Differs Date of service: 09/17/18 Time of Service: 13:53 Care Management Progress Note S/O: Gale is sitting up in her bed today when this screenplay writer visits, she is pleasant and receptive to discussion. Gale continues to state that she wishes to return home once medically cleared. Lela PT, notified CM that Gale will require a jake walker at time of DC. CM has sent order and supporting documentation to [facility]. Lela PT, states that Gale can borrow one from PT at time of DC until one is delivered to her home. A: 77 y/o female admitted 09/15/18 for (R) humeral head fx. P: Gale will return home with new home health PT/OT once medically cleared. She will require a jake walker at time of DC, CM has faxed order and supporting documentation to [facility]. Gale will F/U with PCP and plan of care as prescribed.
--- NOTE | 2018-09-17 14:02 | CMPROGNOTE_ITS ---
- If Service Date Differs Date of service: 09/17/18 Time of Service: 13:53 Care Management Progress Note S/O: Gale is sitting up in her bed today when this grant writer visits, she is pleasant and receptive to discussion. Gale continues to state that she wishes to return home once medically cleared. Lela PT, notified CM that Gale will require a jkae walker at time of DC. CM has sent order and supporting documentation to [facility]. Lela PT, states that Gale can borrow one from PT at time of DC until one is delivered to her home. A: 77 y/o female admitted 09/15/18 for (R) humeral head fx. P: Gale will return home with new home health PT/OT once medically cleared. She will require a jake walker at time of DC, CM has faxed order and supporting documentation to [facility]. Gale will F/U with PCP and plan of care as prescribed.
--- NOTE | 2018-09-17 16:50 | PGE_ITS ---
Date of Service Date of service: 09/17/18 Time of Service: 16:46 Assessment and Plan (1) Closed fracture of right proximal humerus: Current visit: Yes Status: Acute Status post fall 2 days prior to her admission. Reports falls at home, continue to monitor on tele, EKG nonischemic, troponin on admission negative. Right knee with effusion. She has been seen by Dr. Foy, ortho, he notes Hemarthrosis right knee, probably due to occult fracture, he aspirated and injected the right knee with steroids. Continue sling to right arm for comfort, begin to mobilize right arm in 2 weeks. Tylenol with codeine for mild pain (she takes Tylenol with codeine for chronic pain at home), oxycodone as needed for moderate pain, IV morphine for severe/breakthrough pain. Ice for comfort to bot h right arm and right knee. Continue to mobilize with PT. Continue weightbearing as tolerated to the right knee. Should follow-up with Dr. Foy for her shoulder and her knee 1-2 weeks after discharge. (2) Right knee pain: Current visit: Yes Status: Acute As above. (3) UTI (urinary tract infection): Current visit: Yes Status: Acute Urine culture growing e-coli, >100,000 colonies, pansensitive. Started on IV ceftriaxone yesterday. Transition to oral Cipro today. Continue to monitor overnight. (4) Diabetes mellitus type 1: Current visit: No Status: Acute Monitor blood glucose closely. Continue home dose of long-acting insulin at 23 units daily. Aspart per sliding scale, increased to resistant today. Adjust insulin as needed. Continue ADA diet. (5) TYLER (acute kidney injury): Current visit: Yes Status: Acute With mildly elevated creatinine on admission. Creatinine remains normal today. Continue to monitor. (6) Peripheral neuropathy: Current visit: No Status: Chronic (7) Sikhism: Current visit: No Status: Chronic (8) DVT prophylaxis: Current visit: Yes Status: Acute Subcutaneous Lovenox. (9) Discharge planning issues: Current visit: Yes Status: Acute She is a full code. We discussed CODE STATUS, she would not to like to be intubated for a long period of time. She was unable to ambulate upon admission to the hospital, Continue physical therapy. PT reports that she may need a rehab stay prior to returning home, she is adamant that she will return home with support This case is discussed with Dr. Barrow who is in agreement Subjective Interval history since last seen: Mrs. Steve is a very pleasant 77-year-old female with a past medical history significant for type 1 diabetes, hypertension, chronic pain related to peripheral neuropathy and hypothyroidism. She fell at home and sustained a right humerus fracture, she presented to the emergency department because she was unable to bear weight due to the pain in her right knee. She also reported swelling in that right knee. She had a tib/fib x-ray which did not show a fracture. She was seen by Dr. Foy, orthopedics. She went on to have a right knee x-ray which did note Suprapatellar joint effusion. Dr. Foy who aspirated blood from the knee and administered steroid injection. She reports improvement in her right upper extremity pain, she reports that the sling helps significantly. She continues to have pain in her right knee, she is mobilizing with PT. She was found to have a UTI with e-coli, >100,000 colonies, she denies dysuria or hematuria, no fevers, chills, shortness of breath, coughing, wheezing, chest pain/pressure, abdominal pain, nausea, vomiting, diarrhea. She is eating and drinking and tolerating her diet. Exam Narrative Exam Narrative: General: Elderly female, pleasant and cooperative, sitting up in the chair, in no acute distress. HEENT: Normocephalic, atraumatic, pupils equal and round, mucous membranes moist. Neck: Supple, no JVD. Respiratory: Respirations even and unlabored, lung sounds clear to auscultation throughout. Cardiovascular: Heart has a regular rate and rhythm, no murmur appreciated. GI: Abdomen soft, nontender on palpation, normoactive bowel sounds x4 quadrants, no masses appreciated. Extremities: Right upper extremity with anterior ecchymosis over proximal humerus, no obvious deformity. Radial pulses palpable bilaterally, no clubbing cyanosis or edema of bilateral lower extremities, pedal pulses palpable bilaterally. Right knee appears to have more ecchymosis, Band-Aid to the right lateral aspect, puncture site slightly to the right distal knee. Objective Objective Clinical Data: Abnormal lab results 09/17/18 09/17/18 Range/Units 06:21 06:21 RBC 3.76 L (4.00-5.20) m/cumm Hgb 11.4 L (12.0-15.5) g/dL Hct 34.5 L (36.0-46.0) % MPV 11.9 H (8.0-11.0) fL Glucose 127 H D (70-100) mg/dL Calcium 8.4 L (8.5-10.1) mg/dL Vital Signs Temperature 36.8 C 09/17/18 16:17 Temperature Source Tympanic 09/17/18 16:17 Pulse 82 09/17/18 16:17 Pulse Rhythm Irregular 09/17/18 07:35 Respiratory Rate 19 09/17/18 16:17 Respiratory Effort Non-Labored 09/17/18 07:35 Respiratory Depth Normal 09/17/18 07:35 Respiratory Pattern Normal 09/17/18 07:35 Blood Pressure 179/83 H 09/17/18 16:17 Blood Pressure Position Sitting 09/15/18 10:22 Pulse Oximetry 95 09/17/18 16:17 Oxygen Delivery Method Room Air 09/17/18 16:17 Oxygen Flow Rate 0 09/17/18 16:17 Pain Level 1 09/17/18 14:19 Intake & Output 09/16/18 09/17/18 09/17/18 23:59 11:59 23:59 Intake Total 492.5 / 1828.75 240 / 540 300 / 540 Output Total 550 / 1200 900 / 1350 450 / 1350 Balance -57.5 / 628.75 -660 / -810 -150 / -810 Weight 73 kg Intake: IV 342.5 / 1478.75 50 / 50 Oral 150 / 350 240 / 490 250 / 490 Output: Urine 550 / 1200 900 / 1350 450 / 1350 Other: Urine Color Yellow Dark Neena Yellow Urine Appearance Cloudy Cloudy Clear Urine Odor Normal Comment amount unknown. Stool Characteristics Soft Formed Brown Voiding Methods Bedside Commode Bedside Commode Bedside Commode Laboratory Results WBC 6.30 k/cumm (4.4-10.8) 09/17/18 06:21 RBC 3.76 m/cumm (4.00-5.20) L 09/17/18 06:21 Hgb 11.4 g/dL (12.0-15.5) L 09/17/18 06:21 Hct 34.5 % (36.0-46.0) L 09/17/18 06:21 MCV 91.8 fL (80-95) 09/17/18 06:21 MCH 30.3 pg (27.0-33.0) 09/17/18 06:21 MCHC 33.0 g/dL (32.0-36.0) 09/17/18 06:21 RDW 12.2 % (11.7-14.6) 09/17/18 06:21 Plt Count 157 x1000/uL (130-400) 09/17/18 06:21 MPV 11.9 fL (8.0-11.0) H 09/17/18 06:21 Abs Immat Gran (auto) Cancelled 09/15/18 10:05 Immature Gran % Cancelled 09/15/18 10:05 Neutrophils % Cancelled 09/15/18 10:05 Band Neutrophils % Cancelled 09/15/18 10:05 Lymphocytes % Cancelled 09/15/18 10:05 Atypical Lymphs % Cancelled 09/15/18 10:05 Monocytes % Cancelled 09/15/18 10:05 Eosinophils % Cancelled 09/15/18 10:05 Basophils % Cancelled 09/15/18 10:05 Absolute Neutrophils Cancelled 09/15/18 10:05 Absolute Lymphocytes Cancelled 09/15/18 10:05 Absolute Monocytes Cancelled 09/15/18 10:05 Absolute Eosinophils Cancelled 09/15/18 10:05 Absolute Basophils Cancelled 09/15/18 10:05 Metamyelocytes Cancelled 09/15/18 10:05 Myelocytes Cancelled 09/15/18 10:05 Promyelocytes Cancelled 09/15/18 10:05 Nucleated RBCs Cancelled 09/15/18 10:05 Differential Comment Cancelled 09/15/18 10:05 Other Cell Type Cancelled 09/15/18 10:05 RBC Morphology Cancelled 09/15/18 10:05 Polychromasia Cancelled 09/15/18 10:05 Hypochromasia Cancelled 09/15/18 10:05 Poikilocytosis Cancelled 09/15/18 10:05 Basophilic Stippling Cancelled 09/15/18 10:05 Anisocytosis Cancelled 09/15/18 10:05 Microcytosis Cancelled 09/15/18 10:05 Macrocytosis Cancelled 09/15/18 10:05 Spherocytes Cancelled 09/15/18 10:05 Target Cells Cancelled 09/15/18 10:05 Tear Drop Cells Cancelled 09/15/18 10:05 Ovalocytes Cancelled 09/15/18 10:05 Stomatocytes Cancelled 09/15/18 10:05 [place] Bodies Cancelled 09/15/18 10:05 Emani Cells Cancelled 09/15/18 10:05 Acanthocytes (Spur) Cancelled 09/15/18 10:05 Schistocytes Cancelled 09/15/18 10:05 Sodium 141 mmol/L (136-145) 09/17/18 06:21 Potassium 3.6 mmol/L (3.5-5.1) 09/17/18 06:21 Chloride 104 mmol/L (98-107) 09/17/18 06:21 Carbon Dioxide 27.8 mmol/L (21.0-32.0) 09/17/18 06:21 Anion Gap 9.2 mmol/L (3-11) 09/17/18 06:21 BUN 12 mg/dL (7-18) 09/17/18 06:21 Creatinine 0.79 mg/dL (0.55-1.02) 09/17/18 06:21 Estimated GFR/1.73 m2 >= 60.00 (mL/min/1.73m2) 09/17/18 06:21 Glucose 127 mg/dL (70-100) H D 09/17/18 06:21 Calcium 8.4 mg/dL (8.5-10.1) L 09/17/18 06:21 Magnesium 1.8 mg/dL (1.8-2.4) 09/17/18 06:21 Total Bilirubin Cancelled 09/15/18 10:05 AST Cancelled 09/15/18 10:05 ALT Cancelled 09/15/18 10:05 Alkaline Phosphatase Cancelled 09/15/18 10:05 Troponin I < 0.02 ng/mL (0.00-0.06) 09/15/18 13:24 Total Protein Cancelled 09/15/18 10:05 Albumin Cancelled 09/15/18 10:05 TSH 2.22 uIU/mL (0.358-3.74) 09/16/18 06:30 Urine Color Yellow (Yellow) 09/15/18 13:57 Urine Clarity Sl cloudy 09/15/18 13:57 Urine pH 5.5 (5-8) 09/15/18 13:57 Ur Specific [place] 1.025 (1.005-1.025) 09/15/18 13:57 Urine Protein 30 mg/dL (Negative) H 09/15/18 13:57 Urine Ketones 40 mg/dL (Negative) H 09/15/18 13:57 Urine Blood Trace-lysed (Negative) H 09/15/18 13:57 Urine Nitrite Negative (Negative) 09/15/18 13:57 Urine Bilirubin Negative (Negative) 09/15/18 13:57 Urine Urobilinogen 0.2 EU/dL (Up TO 0.2) 09/15/18 13:57 Ur Leukocyte Esterase Negative (Negative) 09/15/18 13:57 Urine RBC Not Applicable 09/15/18 13:57 Urine WBC 10-20 HPF (0-5) 09/15/18 13:57 Ur Epithelial Cells Rare HPF (Negative) 09/15/18 13:57 Urine Crystals Not Applicable 09/15/18 13:57 Urine Bacteria Packed HPF (Negative) 09/15/18 13:57 Urine Mucus Not Applicable 09/15/18 13:57 Urine Other Few transitional (Negative) 09/15/18 13:57 Ur Culture Indicated? Yes 09/15/18 13:57 Urine Glucose 500 mg/dL (Negative) H 09/15/18 13:57
[2018-09-17] MEDS: Ciprofloxacin 250 MG TAB PO (20:03)
[2018-09-17] MEDS: oxyCODONE 5 MG TAB PO (20:04)
[2018-09-18] VITALS (7 sets, daily range): BP systolic 117–171; BP diastolic 75–87; PULSE 72–93; RESP 16–20; TEMP 36.2–37.1; O2SAT 92–97
[2018-09-18] MEDS: Acetaminophen 325 MG TAB PO (01:18)
[2018-09-18] MEDS: Insulin Aspart 300 UNITS/3 ML PEN SC ×3 (08:23→17:02)
--- NOTE | 2018-09-18 08:30 | PT.INTREAT ---
Date of service: 09/18/18 Time of Service: 08:30 PT Notes 09/18/18 SUBJECTIVE: Gale stating she is doing okay this morning. Her biggest complaint is of her right knee. She did get her knee drained yesterday and had a cortisone shot which she is hoping will be helpful soon. OBJECTIVE: Seated in chair. Agreeable to PT treatment. TRANSFERS Sit to stand: CGA Stand to sit: CGA GAIT: Device: Ashkan walker Weight bearing: AT Assist: CGA Distance: 15'x2 Deviation: Slow, cautious gait, step to pattern Therex: Pt is performing regular LAQ's sitting in the chair and ankle pumps. Did not increase her exercise today due to cortisone injection yesterday. ASSESSMENT: Tolerating PT well. Her knee seems to be the limiting factor in her gait distance and she does have a fear of falling again. No LOB during our treatment today and we talk about pt having to take her time and not cotton while performing her gait training to increase safety awareness and confidence. PLAN: Continue current POC progressing toward's established goals. Treatment time: 15 minutes [id number] Mary Greco PTA
--- NOTE | 2018-09-18 08:36 | PTTR_ITS ---
Date of service: 09/18/18 Time of Service: 08:30 PT Notes 09/18/18 SUBJECTIVE: Gale stating she is doing okay this morning. Her biggest complaint is of her right knee. She did get her knee drained yesterday and had a cortisone shot which she is hoping will be helpful soon. OBJECTIVE: Seated in chair. Agreeable to PT treatment. TRANSFERS Sit to stand: CGA Stand to sit: CGA GAIT: Device: Ashkan walker Weight bearing: AT Assist: CGA Distance: 15'x2 Deviation: Slow, cautious gait, step to pattern Therex: Pt is performing regular LAQ's sitting in the chair and ankle pumps. Did not increase her exercise today due to cortisone injection yesterday. ASSESSMENT: Tolerating PT well. Her knee seems to be the limiting factor in her gait distance and she does have a fear of falling again. No LOB during our treatment today and we talk about pt having to take her time and not octton while performing her gait training to increase safety awareness and confidence. PLAN: Continue current POC progressing toward's established goals. Treatment time: 15 minutes [id number] Mary Greco PTA
[2018-09-18] MEDS: Lisinopril 20 MG TAB PO (08:55)
[2018-09-18] MEDS: Pregabalin 50 MG CAP 150 MG PO ×2 (08:55→20:02)
[2018-09-18] MEDS: Nortriptyline 10 MG CAP PO (08:56)
[2018-09-18] MEDS: Levothyroxine 112 MCG TAB PO (08:56)
[2018-09-18] MEDS: Propranolol 10 MG TAB PO ×2 (08:56→20:03)
[2018-09-18] MEDS: Ciprofloxacin 250 MG TAB PO ×2 (08:56→20:03)
[2018-09-18 11:14] LABS: HCT 36.6 % (36.0-46.0); HGB 12.3 g/dL (12.0-15.5); Mean Corp. HGB Concentration 33.6 g/dL (32.0-36.0); Mean Corpuscular Hemoglobin 30.8 pg (27.0-33.0); Mean Corpuscular Volume 91.7 fL (80-95); Mean Platelet Volume 12.1 fL (8.0-11.0); Platelet Count 189 x1000/uL (130-400); RBC 3.99 m/cumm (4.00-5.20); RBC Distribution Width 12.1 % (11.7-14.6); White Blood Cell Count 11.32 k/cumm (4.4-10.8)
[2018-09-18 11:26] LABS: Anion Gap 12.1 mmol/L (3-11); BUN 21 mg/dL (7-18); CO2 25.9 mmol/L (21.0-32.0); Calcium 9.2 mg/dL (8.5-10.1); Chloride 99 mmol/L (98-107); Estimated GFR 43.68 (mL/min/1.73m2); Glucose 380 mg/dL (70-100); Magnesium 1.7 mg/dL (1.8-2.4); Potassium 3.6 mmol/L (3.5-5.1); Sodium 137 mmol/L (136-145)
[2018-09-18] MEDS: Enoxaparin 40 MG/0.4 ML SYR SC (13:40)
[2018-09-18] MEDS: Magnesium Oxide 400 MG TAB PO (13:41)
[2018-09-18] MEDS: Lactobacillus Acidophilus CAP 1 CAP PO ×2 (13:41→20:02)
[2018-09-18] MEDS: Normal Saline 1,000 ML 125 ML IV (13:48)
--- NOTE | 2018-09-18 15:14 | CMPROGNOTE_ITS ---
Care Management Progress Note S/O: No changes to the discharge plan. Coordination of DME and services arranged on Thursday09/17/18: Lela PT, notified CM that Gale will require a jake walker at time of DC. ALEXANDRA has sent order and supporting documentation to [facility]. Lela PT, states that Gale can borrow one from PT at time of DC until one is delivered to her home. A: 77 y/o female admitted 09/15/18 for (R) humeral head fx. P: Gale will return home with new home health PT/OT once medically cleared. She will require a jake walker at time of DC, ALEXANDRA has faxed order and supporting documentation to [facility] on Thursday09/17/18. Gale will F/U with PCP and plan of care as prescribed.
--- NOTE | 2018-09-18 15:39 | W.PM.PROGNOT ---
Date of Service Date of service: 09/18/18 Time of Service: 16:07 Assessment and Plan (1) Closed fracture of right proximal humerus: Start date: 09/18/18 Start time: 15:43 Current visit: Yes Status: Acute status post fall 2 days prior to admission. Continue to work with PT/OT, meds for pain and sling for arm. F/u with Dr. Foy (2) TYLER (acute kidney injury): Start date: 09/18/18 Start time: 15:58 Current visit: Yes Status: Acute Increased creatinine today up from yesterday. She does state she is having a large amount of liquid stool. Started on lisinopril will continue to monitor. (3) Orthostatic hypotension: Start date: 09/18/18 Start time: 16:04 Current visit: Yes Status: Acute evidenced by drop in bp systolically from 149 lying to 137 sitting to 117 standing. Denies dizziness. (4) Diarrhea: Start date: 09/18/18 Start time: 16:00 Current visit: Yes Status: Acute Having a large amount of liquid stool, sample for c-diff sent out. on cipro po for UTI. probiotic started. (5) UTI (urinary tract infection): Start date: 09/18/18 Start time: 16:01 Current visit: Yes Status: Acute Cipro PO 250 mg twice a day (6) DVT prophylaxis: Start date: 09/18/18 Start time: 16:02 Current visit: Yes Status: Acute enoxaprin (7) Discharge planning issues: Start date: 09/18/18 Start time: 16:04 Current visit: Yes Status: Acute wants to go home. We will keep and monitor (8) Hypomagnesemia: Start date: 09/18/18 Start time: 16:06 Current visit: Yes Status: Acute repeleted with 400 mg magnesium oxide, continue to monitor. Subjective Patient reports: other Interval history since last seen: Mrs. Steve is a 77 yo F with past medical hx of type 1 diabetes, htn, chronic pain related to peripheral neuropathy and hypothyroidism. She fell at home prior to arrival and sustained a right humerus fracture, she presented to [facility] Emergency department because she was unable to bear weight due to the pain in her knee. She had an xray of her tib/fib that did not show a fracture. Today she is feeling improved and eager to go home. She is having a large amount of diarrhea and asking for immodium as she states she always has this. She is currently on cipro 250 mg bid for UTI and a c-diff has been sent out. She was also started on probiotic. Her creatinine has increased today as well, she was started on lisinopril yesterday, we will monitor kidney function to see if it improves. She had a slight increase in WBC as well which we will continue to monitor. She denies SOB, CP, fever. Exam Narrative Exam Narrative: General: Elderly female, pleasant and cooperative, sitting up in the chair, in no acute distress. HEENT: Normocephalic, atraumatic, pupils equal and round, mucous membranes moist. Neck: Supple, no JVD. Respiratory: Respirations even and unlabored, lung sounds clear to auscultation throughout. Cardiovascular: Heart has a regular rate and rhythm, no murmur appreciated. GI: Abdomen soft, nontender on palpation, normoactive bowel sounds x4 quadrants, no masses appreciated. Extremities: Right upper extremity with anterior ecchymosis over proximal humerus, no obvious deformity. Radial pulses palpable bilaterally, no clubbing cyanosis or edema of bilateral lower extremities, pedal pulses palpable bilaterally. Right knee appears to have more ecchymosis, Band-Aid to the right lateral aspect, puncture site slightly to the right distal knee. Objective Objective Clinical Data: Abnormal lab results 09/18/18 09/18/18 Range/Units 10:50 10:50 WBC 11.32 H (4.4-10.8) k/cumm RBC 3.99 L (4.00-5.20) m/cumm MPV 12.1 H (8.0-11.0) fL Anion Gap 12.1 H (3-11) mmol/L BUN 21 H D (7-18) mg/dL Creatinine 1.20 H (0.55-1.02) mg/dL Glucose 380 H D (70-100) mg/dL Magnesium 1.7 L (1.8-2.4) mg/dL Vital Signs Temperature 36.2 C L 09/18/18 07:30 Temperature Source Tympanic 09/18/18 07:30 Pulse 92 H 09/18/18 09:58 Pulse Rhythm Irregular 09/18/18 07:50 Respiratory Rate 09/18/18 07:30 Respiratory Effort Non-Labored 09/18/18 07:50 Respiratory Depth Normal 09/18/18 07:50 Respiratory Pattern Normal 09/18/18 07:50 Blood Pressure 149/79 H 09/18/18 09:58 Blood Pressure Position Sitting 09/15/18 10:22 Pulse Oximetry 92 L 09/18/18 07:30 Oxygen Delivery Method Room Air 09/18/18 07:30 Oxygen Flow Rate 0 09/18/18 07:30 Pain Level 1 09/18/18 09:23 Intake & Output 09/17/18 09/18/18 09/18/18 23:59 11:59 23:59 Intake Total 300 / 540 240 / 240 Output Total 800 / 1700 350 / 350 Balance -500 / -1160 -110 / -110 Weight 72.4 kg Intake: IV 50 / 50 Oral 250 / 490 240 / 240 Output: Urine 800 / 1700 350 / 350 Other: Urine Color Yellow Yellow Urine Appearance Clear Clear Stool Size Moderate Small Stool Characteristics Soft Soft Formed Liquid Brown Voiding Methods Bedside Commode Bedside Commode Laboratory Results WBC 11.32 k/cumm (4.4-10.8) H 09/18/18 10:50 RBC 3.99 m/cumm (4.00-5.20) L 09/18/18 10:50 Hgb 12.3 g/dL (12.0-15.5) 09/18/18 10:50 Hct 36.6 % (36.0-46.0) 09/18/18 10:50 MCV 91.7 fL (80-95) 09/18/18 10:50 MCH 30.8 pg (27.0-33.0) 09/18/18 10:50 MCHC 33.6 g/dL (32.0-36.0) 09/18/18 10:50 RDW 12.1 % (11.7-14.6) 09/18/18 10:50 Plt Count 189 x1000/uL (130-400) 09/18/18 10:50 MPV 12.1 fL (8.0-11.0) H 09/18/18 10:50 Abs Immat Gran (auto) Cancelled 09/15/18 10:05 Immature Gran % Cancelled 09/15/18 10:05 Neutrophils % Cancelled 09/15/18 10:05 Band Neutrophils % Cancelled 09/15/18 10:05 Lymphocytes % Cancelled 09/15/18 10:05 Atypical Lymphs % Cancelled 09/15/18 10:05 Monocytes % Cancelled 09/15/18 10:05 Eosinophils % Cancelled 09/15/18 10:05 Basophils % Cancelled 09/15/18 10:05 Absolute Neutrophils Cancelled 09/15/18 10:05 Absolute Lymphocytes Cancelled 09/15/18 10:05 Absolute Monocytes Cancelled 09/15/18 10:05 Absolute Eosinophils Cancelled 09/15/18 10:05 Absolute Basophils Cancelled 09/15/18 10:05 Metamyelocytes Cancelled 09/15/18 10:05 Myelocytes Cancelled 09/15/18 10:05 Promyelocytes Cancelled 09/15/18 10:05 Nucleated RBCs Cancelled 09/15/18 10:05 Differential Comment Cancelled 09/15/18 10:05 Other Cell Type Cancelled 09/15/18 10:05 RBC Morphology Cancelled 09/15/18 10:05 Polychromasia Cancelled 09/15/18 10:05 Hypochromasia Cancelled 09/15/18 10:05 Poikilocytosis Cancelled 09/15/18 10:05 Basophilic Stippling Cancelled 09/15/18 10:05 Anisocytosis Cancelled 09/15/18 10:05 Microcytosis Cancelled 09/15/18 10:05 Macrocytosis Cancelled 09/15/18 10:05 Spherocytes Cancelled 09/15/18 10:05 Target Cells Cancelled 09/15/18 10:05 Tear Drop Cells Cancelled 09/15/18 10:05 Ovalocytes Cancelled 09/15/18 10:05 Stomatocytes Cancelled 09/15/18 10:05 [place] Bodies Cancelled 09/15/18 10:05 Emani Cells Cancelled 09/15/18 10:05 Acanthocytes (Spur) Cancelled 09/15/18 10:05 Schistocytes Cancelled 09/15/18 10:05 Sodium 137 mmol/L (136-145) 09/18/18 10:50 Potassium 3.6 mmol/L (3.5-5.1) 09/18/18 10:50 Chloride 99 mmol/L (98-107) 09/18/18 10:50 Carbon Dioxide 25.9 mmol/L (21.0-32.0) 09/18/18 10:50 Anion Gap 12.1 mmol/L (3-11) H 09/18/18 10:50 BUN 21 mg/dL (7-18) H D 09/18/18 10:50 Creatinine 1.20 mg/dL (0.55-1.02) H 09/18/18 10:50 Estimated GFR/1.73 m2 43.68 (mL/min/1.73m2) 09/18/18 10:50 Glucose 380 mg/dL (70-100) H D 09/18/18 10:50 Calcium 9.2 mg/dL (8.5-10.1) 09/18/18 10:50 Magnesium 1.7 mg/dL (1.8-2.4) L 09/18/18 10:50 Total Bilirubin Cancelled 09/15/18 10:05 AST Cancelled 09/15/18 10:05 ALT Cancelled 09/15/18 10:05 Alkaline Phosphatase Cancelled 09/15/18 10:05 Troponin I < 0.02 ng/mL (0.00-0.06) 09/15/18 13:24 NT-Pro-B Natriuret Pep Cancelled 09/18/18 10:38 Total Protein Cancelled 09/15/18 10:05 Albumin Cancelled 09/15/18 10:05 TSH 2.22 uIU/mL (0.358-3.74) 09/16/18 06:30 Urine Color Yellow (Yellow) 09/15/18 13:57 Urine Clarity Sl cloudy 09/15/18 13:57 Urine pH 5.5 (5-8) 09/15/18 13:57 Ur Specific [place] 1.025 (1.005-1.025) 09/15/18 13:57 Urine Protein 30 mg/dL (Negative) H 09/15/18 13:57 Urine Ketones 40 mg/dL (Negative) H 09/15/18 13:57 Urine Blood Trace-lysed (Negative) H 09/15/18 13:57 Urine Nitrite Negative (Negative) 09/15/18 13:57 Urine Bilirubin Negative (Negative) 09/15/18 13:57 Urine Urobilinogen 0.2 EU/dL (Up TO 0.2) 09/15/18 13:57 Ur Leukocyte Esterase Negative (Negative) 09/15/18 13:57 Urine RBC Not Applicable 09/15/18 13:57 Urine WBC 10-20 HPF (0-5) 09/15/18 13:57 Ur Epithelial Cells Rare HPF (Negative) 09/15/18 13:57 Urine Crystals Not Applicable 09/15/18 13:57 Urine Bacteria Packed HPF (Negative) 09/15/18 13:57 Urine Mucus Not Applicable 09/15/18 13:57 Urine Other Few transitional (Negative) 09/15/18 13:57 Ur Culture Indicated? Yes 09/15/18 13:57 Urine Glucose 500 mg/dL (Negative) H 09/15/18 13:57
[2018-09-18] MEDS: Normal Saline Flush 10 ML SYR IVP (17:39)
[2018-09-19] VITALS (7 sets, daily range): BP systolic 116–191; BP diastolic 71–101; PULSE 64–89; RESP 16–18; TEMP 35.9–36.6; O2SAT 93–98
[2018-09-19 07:44] LABS: Abs Immature Grans 0.03 k/cumm (0.0-0.09); Absolute Basophil Count 0.03 k/cumm (0.0-0.2); Absolute Eosinophil Count 0.25 k/cumm (0.0-0.7); Absolute Lymphocyte Count 2.44 k/cumm (1.2-3.4); Absolute Monocyte Count 0.79 k/cumm (0.11-0.7); Absolute Neutrophil Count 4.44 k/cumm (1.2-6.7); Basophils % 0.4; Eosinophils % 3.1; HCT 34.4 % (36.0-46.0); HGB 11.5 g/dL (12.0-15.5); Immature Grans % 0.4; Lymphocytes % 30.6; Mean Corp. HGB Concentration 33.4 g/dL (32.0-36.0); Mean Corpuscular Hemoglobin 30.8 pg (27.0-33.0); Mean Corpuscular Volume 92.2 fL (80-95); Mean Platelet Volume 11.5 fL (8.0-11.0); Monocytes % 9.9; Neutrophils % 55.6; Platelet Count 192 x1000/uL (130-400); RBC 3.73 m/cumm (4.00-5.20); RBC Distribution Width 12.5 % (11.7-14.6); White Blood Cell Count 7.98 k/cumm (4.4-10.8)
[2018-09-19 07:54] LABS: Anion Gap 8.8 mmol/L (3-11); BUN 18 mg/dL (7-18); CO2 28.2 mmol/L (21.0-32.0); Calcium 8.6 mg/dL (8.5-10.1); Chloride 101 mmol/L (98-107); Glucose 319 mg/dL (70-100); Magnesium 1.5 mg/dL (1.8-2.4); Potassium 3.7 mmol/L (3.5-5.1); Sodium 138 mmol/L (136-145)
[2018-09-19] MEDS: Normal Saline Flush 10 ML SYR IVP (07:57)
[2018-09-19] MEDS: Propranolol 10 MG TAB PO (07:58)
[2018-09-19] MEDS: Lisinopril 20 MG TAB PO (07:58)
[2018-09-19] MEDS: Magnesium Oxide 400 MG TAB PO (07:58)
[2018-09-19] MEDS: Ciprofloxacin 250 MG TAB PO (07:58)
[2018-09-19] MEDS: Pregabalin 50 MG CAP 150 MG PO (07:59)
[2018-09-19] MEDS: Nortriptyline 10 MG CAP PO (07:59)
[2018-09-19] MEDS: Levothyroxine 112 MCG TAB PO (07:59)
[2018-09-19] MEDS: Lactobacillus Acidophilus CAP 1 CAP PO ×2 (07:59→13:44)
[2018-09-19] MEDS: Insulin Aspart 300 UNITS/3 ML PEN SC ×2 (08:07→12:14)
--- NOTE | 2018-09-19 09:21 | PT.INTREAT ---
Date of service: 09/19/18 Time of Service: 09:21 PT Notes 09/19/18 SUBJECTIVE: Gale stating her shoulder is sore today. She is unsure if she slept wrong on her arm. She is hoping to go home today. OBJECTIVE: Supine in bed. Agreeable to PT treatment. TRANSFERS Supine to sit: SBA Sit to stand: SBA Stand to sit: SBA GAIT: Device: HW Weight bearing: AT Assist: CGA Distance: 20'x2 Deviation: Slow and cautious ASSESSMENT: Pt able to increased gait distance today comparable to the distance she will have to walk at home. She is tolerating increased weight on the right knee with less discomfort and good technique with the jake walker. PLAN: Continue per established POC. Treatment time: 15 minutes [id number] Mary Greco, [employer] DIRECTOR
--- NOTE | 2018-09-19 09:26 | PTTR_ITS ---
Date of service: 09/19/18 Time of Service: 09:21 PT Notes 09/19/18 SUBJECTIVE: Gale stating her shoulder is sore today. She is unsure if she slept wrong on her arm. She is hoping to go home today. OBJECTIVE: Supine in bed. Agreeable to PT treatment. TRANSFERS Supine to sit: SBA Sit to stand: SBA Stand to sit: SBA GAIT: Device: HW Weight bearing: AT Assist: CGA Distance: 20'x2 Deviation: Slow and cautious ASSESSMENT: Pt able to increased gait distance today comparable to the distance she will have to walk at home. She is tolerating increased weight on the right knee with less discomfort and good technique with the jake walker. PLAN: Continue per established POC. Treatment time: 15 minutes [id number] Mary Greco, [employer]
--- NOTE | 2018-09-19 11:00 | W.PM.DS.N ---
Date of service: 09/19/18 Time of Service: 11:01 DS: Diagnosis Discharge Diagnosis (1) Closed fracture of right proximal humerus: Status: Acute (2) TYLER (acute kidney injury): Status: Acute (3) Orthostatic hypotension: Status: Acute (4) Diarrhea: Status: Acute (5) UTI (urinary tract infection): Status: Acute (6) DVT prophylaxis: Status: Acute (7) Discharge planning issues: Status: Acute (8) Hypomagnesemia: Status: Acute Discharge Plan Disposition Patient Disposition: HOME Condition: Improving Discharge Details Reason For Visit: R HUMERAL HEAD FX, S/P FALL, HYPERGLYCEMIA Admit Date/Time: 09/15/18 12:58 Admit Provider: Toñito Barrow Attending Provider: Toñito Barrow Primary Care Provider: Newton Dawn Hospital Course Hospital Course: Mrs. Steev is 77 y.o Female with PMH type 1 diabetes, HTN, chronic pain from peripheral neuropathy and hypothyroidism. She was admitted from [facility] Emergency Department for a fall 2 days prior to coming in. She had right arm and shoulder pain and was unable to ambulate. Xray of right leg did not show fracture or dislocation. CT revealed right upper nondisplaced fracture involving greater tuberosity and neck of the humerus. She had mild acute kidney injury with creatinine of 1.14. Her glucose was elevated in the ED and she recieved insulin. She was admitted to med surg floor with telemetery for possible syncopal episode. During her hosptialization she was SR in the 70-80's with first degree AVB, at one point she did c/o dizziness, orthostatics where done and she was hypotensive when standing. Her BP did run between 160-180's given her hypotension she was not placed on anymore than lisinopril 20 mg. Her right arm is in a sling and she is to follow up on outpatient with ortho Dr. Foy, her right knee is still swollen but improving and she will Ice it for comfort. Her kidney function has improved. She did have a bout of diarrhea which she states is normal for her, she did get a cdiff r/o because she is on cipro bid for UTI. Cdiff was negative. Her magnesium was low after repletetion, prior to discharge she was given a 4 gram mag run with slowmag daily to start at home. She will finish a 7 day course cipro at home and continue probioitics daily. (1) Closed fracture of right proximal humerus: status post fall 2 days prior to admission. Continue to work with PT/OT, meds for pain and sling for arm. F/u with Dr. Foy (2) TYLER (acute kidney injury): Improve creatinine today from yesterday. She does state she is having a large amount of liquid stool. Started on lisinopril will continue to monitor. (3) Orthostatic hypotension: evidenced by drop in bp systolically from 149 lying to 137 sitting to 117 standing. Denies dizziness. (4) Diarrhea: Having a large amount of liquid stool, sample for c-diff sent out which was negative. on cipro po for UTI. probiotic started. (5) UTI (urinary tract infection): Cipro PO 250 mg twice a day (6) DVT prophylaxis: enoxaprin (7) Discharge planning issues: wants to go home. (8) Hypomagnesemia: repeleted with 4 gr magn and will continue slo mag after d/c. Home Meds and New Rx's Prescriptions: New ciprofloxacin HCl 250 mg Tablet 250 mg PO BID Qty: 11 RF: 0 acidophilus-pectin, citrus 25 million cell -100 mg Tablet 50 mmu cells PO TID Qty: 90 RF: 0 Slow-Mag 71.5 mg tablet,delayed release (DR/EC) 71.5 mg PO BID Qty: 30 RF: 0 Continued levothyroxine [Synthroid] 112 mcg tablet 112 mcg PO DAILY RF: 0 propranolol 10 mg tablet 10 mg PO BID RF: 0 Levemir U-100 Insulin 100 unit/mL solution See Patient Comments SC BID RF: 0 acetaminophen-codeine 300-30 mg tablet 1 tab PO TID MDD 3 tablets/day PRN (Reason: pain) 28 Days Qty: 84 RF: 0 lisinopril 20 mg tablet 20 mg PO DAILY RF: 0 Humalog U-100 Insulin 100 UNIT/1 ML cartridge 11 unit SQ DAILY RF: 0 Glucagon Emergency Kit (human) 1 MG kit 1 mg . DIRECTED PRNRF: 0 nortriptyline 10 MG capsule 10 mg PO DAILY RF: 0 Lyrica 150 mg Capsule 150 mg PO BID RF: 0 Discharge Instructions Instructions: Arm Fracture in Adults (DC), Acute Kidney Injury (GEN), Diabetes Mellitus Type 1 in Adults (DC), Chronic Diarrhea (GEN) Additional Instructions: Follow up with Dr. Foy, call office to schedule appt. Follow up with Dr. Dawn in 1 week. Finish all antibiotics. Take probiotic three times a day, take all other prescriptions are dispensed. Ice knee three times a day for swelling. Report to the Emergency Department if you have Chest pain, Shortness of Breath, increased leg swelling or fevers. Stand Alone Forms: Nursing Discharge Form Referrals: Newton Dawn MD [Primary Care Provider] - (Please call your PCP on ThursdaySeptember 20 to schedule a follow up appointment for within two (2) weeks.) Activity:: Activity as Tolerated Equipment/Supplies:: No Equipment Needed Diet:: Carb Counting Discharge Orders Discharge Orders: Discharge Order (Routine); Ordered 09/19/18 Ordered By: Yue Ivan Exam Const General: cooperative, healthy appearing and no acute distress HENMT Head: normal to inspection Chest Chest: normal inspection of the chest Resp Effort & Inspection: normal respiratory effort and able to speak in complete sentences Auscultation: clear to auscultation bilaterally Cardio Jugular venous pressure: no JVD Rate: regular rate Rhythm: regular rhythm Heart Sounds: S1 normal and S2 normal GI Inspection: normal to inspection Palpation: soft and no hepatosplenomegaly Skin General skin exam: no rashes or lesions noted Extrem Other: edema to right knee DS: Data Vitals/I&O Vitals and I&O: Vital Signs Temperature 36.6 C 09/19/18 07:40 Temperature Source Tympanic 09/19/18 07:40 Pulse 67 09/19/18 07:40 Pulse Rhythm Regular 09/19/18 09:00 Respiratory Rate 16 09/19/18 07:40 Respiratory Effort Non-Labored 09/19/18 09:00 Respiratory Depth Normal 09/19/18 09:00 Respiratory Pattern Normal 09/19/18 09:00 Blood Pressure 170/82 H 09/19/18 07:40 Blood Pressure Position Sitting 09/15/18 10:22 Pulse Oximetry 95 09/19/18 07:40 Oxygen Delivery Method Room Air 09/19/18 07:40 Oxygen Flow Rate 0 09/19/18 07:40 Pain Level 3 09/19/18 08:26 Intake & Output 09/18/18 09/18/18 09/19/18 11:59 23:59 11:59 Intake Total 240 / 483.75 243.75 / 483.75 Output Total 350 / 1800 1450 / 1800 Balance -110 / -1316.25 -1206.25 / -1316.25 Weight 72.4 kg 68.6 kg Intake: IV 243.75 / 243.75 Oral 240 / 240 Output: Urine 350 / 1800 1450 / 1800 Other: Urine Color Yellow Pale Yellow Urine Appearance Clear Clear Urine Odor Normal Comment x1 Stool Size Small Large Stool Characteristics Soft Liquid Liquid Voiding Methods Bedside Commode Bedside Commode Completed studies during hospitalization [Text1]: Right Knee xray: 09/15/2018 No definite evidence of an acute fracture. Suprapatellar joint effusion. This can be seen with trauma or infection. If there is continued concern for an occult fracture, CT scan and/or MRI should be considered for further evaluation. Upper Right Extremity CT: 09/15/[address]: There is an apparent nondisplaced fracture involving the greater tuberosity and neck of the humerus. Labs on day of discharge: Labs from last 24 hours 09/19/18 09/19/18 09/18/18 07:20 07:20 10:50 WBC 7.98 11.32 H RBC 3.73 L 3.99 L Hgb 11.5 L 12.3 Hct 34.4 L 36.6 MCV 92.2 91.7 MCH 30.8 30.8 MCHC 33.4 33.6 RDW 12.5 12.1 Plt Count 192 189 MPV 11.5 H 12.1 H Immature Gran % 0.4 Neutrophils % 55.6 Lymphocytes % 30.6 Monocytes % 9.9 Eosinophils % 3.1 Basophils % 0.4 Absolute Neutrophils 4.44 Absolute Lymphocytes 2.44 Absolute Monocytes 0.79 H Absolute Eosinophils 0.25 Absolute Basophils 0.03 Sodium 138 Potassium 3.7 Chloride 101 Carbon Dioxide 28.2 Anion Gap 8.8 BUN 18 Creatinine 0.90 Estimated GFR/1.73 m2 >= 60.00 Glucose 319 H Calcium 8.6 Magnesium 1.5 L C.difficile Tox Ab Neut 09/18/18 09/18/18 10:50 10:35 WBC RBC Hgb Hct MCV MCH MCHC RDW Plt Count MPV Immature Gran % Neutrophils % Lymphocytes % Monocytes % Eosinophils % Basophils % Absolute Neutrophils Absolute Lymphocytes Absolute Monocytes Absolute Eosinophils Absolute Basophils Sodium 137 Potassium 3.6 Chloride 99 Carbon Dioxide 25.9 Anion Gap 12.1 H BUN 21 H D Creatinine 1.20 H Estimated GFR/1.73 m2 43.68 Glucose 380 H D Calcium 9.2 Magnesium 1.7 L C.difficile Tox Ab Neut Cancelled [facility] Medical History Anxiety and depression (Acute) Diabetes type 1, controlled (Acute) Neuropathy (Acute) HTN (hypertension) (Chronic) Hypothyroidism (Chronic) Surgical History H/O sinus surgery (Acute) H/O thumb surgery (Acute) S/P wrist surgery (Acute) History of cholecystectomy (Chronic) History of tonsillectomy (Chronic) Family History Father Diabetes Heart disease Mother Stroke Social History household members: spouse housing: house number of children: 2 current occupational status: retired what type of physical activity do you participate in: none Smoking and Tabacco status: Never alcohol intake: current alcohol intake frequency: a few times a week Alcohol type: wine substance use type: does not use
[2018-09-19] MEDS: MAGNESIUM SULFATE 4 GM/100 ML BAG IVPB (11:36)
--- NOTE | 2018-09-19 11:59 | HHF2F_ITS ---
Addendum entered and electronically signed by Yue Ivan NP 09/20/18 11:55: Mrs. Dyan Steve, requires in home Physical and Occupational Therapy to regain strength. Original Note: 1. Encounter Date and Reason I certify that DYAN STVEE was seen by Yue Ivan on 09/19/18 and that I had a [id number] encounter with this patient that meets the physician face to face encounter requirements. 2. Clinical Findings Supporting Skilled Need and Homebound Status I certify that home health services are medically necessary, include either intermittent fci and/or physical/speech therapy, and that this patient is homebound in that absences from the home require considerable and taxing effort and are infrequent or of short duration, or are attributable to the need to receive medical care. [X] (a) Attached documentation from encounter provides clinical findings supporting skilled need and homebound status (including what assistance patient requires to leave the home). The encounter with the patient was in whole, or in part, for the following medical condition, which is the primary reason for home health care: R HUMERAL HEAD FX, S/P FALL, HYPERGLYCEMIA Care Home: Physical Therapy: New outpatient therapy for nondisplaced humeral fracture She will also need outpatient Occupational therapy Speech Therapy: Homebound: 3. Certification and Authentication I certify that I composed the above information based on my clinical judgement relating to this patient's medical condition and, if applicable, clinical findings communicated to me by the NPP or inpatient physician who performed the Home Health Referral. All further orders will be obtained through (Community Based Physician - PCP)
[2018-09-19] MEDS: Enoxaparin 40 MG/0.4 ML SYR SC (13:44)
--- NOTE | 2018-09-19 15:09 | PDOC.CMDIS ---
LACE Index Scoring Tool - Questions: Length of Stay (in days): 4 - 6 Acuity (Admit via E.D.?): Yes Comorbidities: Diabetes w/o Complication E.D. Visits: 1 - Answers: Total Score: 9 Risk of Readmission: Low Risk Care Management Discharge Reason for Hospitalization: Closed fracture of (R) proximal humerus Discharge Plan: Return home with new services for PT/OT. Borrowing the hemiwalker from PT until hers arrives from [facility] [place]. Family will return the borrowed equipment to PT. Family will transport by private vehicle. Patient/Family Education Needs: Discharge instructions and information regarding new medications. Services Needed at Discharge: DME Agency, Home Health Care Services, Physical Therapy
--- NOTE | 2018-09-19 15:23 | CMDISCH_ITS ---
LACE Index Scoring Tool - Questions: Length of Stay (in days): 4 - 6 Acuity (Admit via E.D.?): Yes Comorbidities: Diabetes w/o Complication E.D. Visits: 1 - Answers: Total Score: 9 Risk of Readmission: Low Risk Care Management Discharge Reason for Hospitalization: Closed fracture of (R) proximal humerus Discharge Plan: Return home with new services for PT/OT. Borrowing the hemiwalker from PT until hers arrives from [facility]. Family will return the borrowed equipment to PT. Family will transport by private vehicle. Patient/Family Education Needs: Discharge instructions and information regarding new medications. Services Needed at Discharge: DME Agency, Home Health Care Services, Physical Therapy
--- NOTE | 2018-09-20 11:13 | INDS_ITS ---
Date of service: 09/19/18 Time of Service: 16:00 PT Notes Date: 09/20/18 Referring Doctor: Jossy De Jesus NP PT Orders: PT CONSULT: Fall with subsequent right humeral head fracture, right knee pain, ambulatory dysfunction Precautions: Fall, standard Treatment Dates: 09/16/18 - 09/19/18 This document serves as a summary of care. No PT intervention was provided on this date. Patient Profile/Admitting Diagnosis: Patient admitted 09/15/17 after suffering a fall at home. She fell on 09/13/2017, striking her right side. X-rays indicated possible fracture of the right shoulder. Patient reporting on admission and inability to ambulate times 2 days. PT consult was ordered to address mobility issues. She was seen 1?2X/day, X 4 days, with a total of 6 PT sessions. She was unable to safely transition home. PMHX: Diabetes with peripheral neuropathy, anxiety and depression, hypertension, hypothyroidism Social History/Home Situation: Patient lives in a single level home with her elderly . She typically ambulates without an assistive device, although states that she is been thinking about beginning to use a walker due to her escalating falls. She has 5 steps to enter the home, with bilateral rails. She has friends with teenage children whom she hires to do work around the house including firewood, etc. She states that after her fall, they were able to assist her to get into bed and into her chair. Equipment Owned/DME: Power wheelchair, which patient states that she uses occasionally. She thinks she may have a walker at home, although is unsure Subjective: None obtained, as patient returned home after her PT session yesterday. Objective: ROM: Right Upper Extremity: Sling in place to right upper extremity. She is able to perform full outsole caser. Upper extremity range of motion was otherwise not assessed. Left Upper Extremity: WFL Right Lower Extremity: Hip range of motion allows flexion to 100 degrees, rotation WFL. Right knee allows 0-110 degrees, limited by anterior knee pain. She does have fresh bruising noted throughout the anterior aspect of the right knee Left Lower Extremity: WFL Strength: Right Upper Extremity: Not assessed Left Upper Extremity: Shoulder flexion 4+/5. Biceps 4/5. 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 Knee extension 4-/5. Knee flexion 4/5. Ankle dorsiflexion 4/5 Left Lower Extremity: Hip flexion 5/5. Knee extension 4+/5. Knee flexion 4+/5. Ankle dorsiflexion Sensation: Diminished through bilateral lower extremities Bed Mobility/Transfers: Supine to sit: SBA Sit to stand:SBA Stand to sit: SBA Bed to chair: CGA with hemiwalker Gait: Patient ambulates 20 feet with CGA and use of left hemiwalker. Stairs: Patient able to manage therapeutic stairs (6x2, 4x3) with single rail, SBA Balance: Static Sitting: Good Dynamic Sitting: Good Static Standing: Fair Dynamic Standing: Fair Assessment: Patient is a 77 year old female referred to physical therapy services with the diagnosis of fall with subsequent right humeral head fracture, right knee pain, ambulatory dysfunction. Patient participated in skilled PT intervention for 6 PT sessions over the course of 4 days, with significant improvements in mobility and safety, sufficient to allow for safe transition back home. She is now appropriate for discharge from acute care services. Goals: Goals X1 week 1. Supine-Sit: supervision(MET) 2. Sit-Supine: supervision(MET) 3. Sit-Stand : supervision(MET) 4. Stand-Sit : supervision (MET) 5. Bed-Chair: supervision with LRD (PROGRESSING TOWARD) 6. Chair-Bed: supervision with LRD(PROGRESSING TOWARD) 7. Gait : supervision with LRD x 25'(PROGRESSING TOWARD) 8. Stairs: min A with left rail x 5 steps (MET) Plan of Care/Treatment Plan: D/C from PT services in acute care setting DISCHARGE RECOMMENDATIONS: D/C home with PT and hemiwalker TREATMENT CODE/TIME: No PT services provided on this date Lela Martinez, PT, DPT [facility]
== END 2018-09-19 15:45 | disposition home or self-care (01) | DRG 563 ==
LOC: ER 13:48 → MS 14:10
PROVIDERS: Nurse Practitioner; Nurse Practitioner Family; Admitting Provider Internal Medicine; Emergency Provider Emergency Medicine; PCP General Practice; Visit Provider Internal Medicine
DX: S42.254A Nondisplaced fracture of greater tuberosity of right humerus, initial encounter for closed fracture (principal); N17.9 Acute kidney failure, unspecified; N39.0 Urinary tract infection, site not specified; S42.214A Unspecified nondisplaced fracture of surgical neck of right humerus, initial encounter for closed fracture; S89.91XA Unspecified injury of right lower leg, initial encounter; W19.XXXA Unspecified fall, initial encounter; E10.65 Type 1 diabetes mellitus with hyperglycemia; B96.20 Unspecified Escherichia coli [E. coli] as the cause of diseases classified elsewhere; G89.29 Other chronic pain; Z79.899 Other long term (current) drug therapy; M25.561 Pain in right knee; M25.461 Effusion, right knee; R26.2 Difficulty in walking, not elsewhere classified; E10.649 Type 1 diabetes mellitus with hypoglycemia without coma; E10.42 Type 1 diabetes mellitus with diabetic polyneuropathy; I95.1 Orthostatic hypotension; R19.7 Diarrhea, unspecified; E83.42 Hypomagnesemia; I10 Essential (primary) hypertension; E03.9 Hypothyroidism, unspecified
CPT/HCPCS: 20610; 36415; 36416; 73562; 80048; 80053; 82962; 85027; 87077; 96360; 96361; 96372; 97110; 97162; 97530; 99222; 99232; 99233; 99239; 99285; J1650; NC; 71046; 73030; 73200; 73590; 81003; 81015; 83735; 83880; 84443; 84484; 85025; 87086; 87186; 87230; 87324; 93005; 93010; J0696; J1040; J1815; J3475; J3490; L3650

== ENCOUNTER → 2018-09-16 14:00 | Outpatient (BNVA) | payer MEDICARE, SELFPAY | PROVIDERS: PCP General Practice; Referring Provider General Practice; Visit Provider Orthopaedic Surgery ==

== ENCOUNTER → 2018-09-17 11:00 | Outpatient (BNVA) | payer MEDICARE, SELFPAY | PROVIDERS: PCP General Practice; Referring Provider General Practice; Visit Provider Orthopaedic Surgery | DX: R69 Illness, unspecified (principal) ==

== ENCOUNTER 2018-10-07 10:19 | Outpatient (CLI) | payer MEDICARE, SELFPAY ==
--- NOTE | 2018-10-07 10:16 | DI.RAD_ITS ---
SYMPTOMS/DIAGNOSIS: F/U FRACTURE RIGHT SHOULDER: Three views. Comparison is 09/15/18. There is again seen a nondisplaced fracture through the surgical neck of the right humerus. There does appear to be some callous formation about the fracture suggesting some interval healing. No new fractures or dislocations are seen. Degenerative changes are seen at the acromioclavicular joint.
== END 2018-10-07 10:39 ==
PROVIDERS: PCP General Practice; Referring Provider General Practice; Visit Provider Orthopaedic Surgery
DX: S42.224D 2-part nondisplaced fracture of surgical neck of right humerus, subsequent encounter for fracture with routine healing (principal); W01.0XXD Fall on same level from slipping, tripping and stumbling without subsequent striking against object, subsequent encounter; I10 Essential (primary) hypertension; E10.9 Type 1 diabetes mellitus without complications
CPT/HCPCS: 99212; 99213; 73030

== ENCOUNTER 2018-11-04 09:58 | Outpatient (CLI) | payer MEDICARE, SELFPAY ==
--- NOTE | 2018-11-04 11:13 | DI.RAD_ITS ---
SYMPTOMS/DIAGNOSIS: RT ANKLE PAIN RIGHT ANKLE: There is evidence of old healed fractures of the medial and lateral malleolus. Degenerative changes involving the mortise are identified. There is no evidence of an acute fracture or dislocation.
== END 2018-11-04 10:18 ==
PROVIDERS: PCP General Practice; Visit Provider Physician Assistant
DX: M25.571 Pain in right ankle and joints of right foot (principal); M19.071 Primary osteoarthritis, right ankle and foot; Z87.81 Personal history of (healed) traumatic fracture
CPT/HCPCS: 73610

== ENCOUNTER 2018-11-04 11:01 | Outpatient (CLI) | payer MEDICARE, SELFPAY ==
--- NOTE | 2018-11-04 10:58 | DI.RAD_ITS ---
SYMPTOMS/DIAGNOSIS: F/U RT PROXIMAL HUMERUS FRACTURE RIGHT SHOULDER: A healing nondisplaced fracture of the surgical neck of the right shoulder is demonstrated. When compared with previous images, there is nothing to suggest that healing is not progressing satisfactorily at the present time.
== END 2018-11-04 11:21 ==
PROVIDERS: PCP General Practice; Referring Provider General Practice; Visit Provider Orthopaedic Surgery
DX: S42.224D 2-part nondisplaced fracture of surgical neck of right humerus, subsequent encounter for fracture with routine healing (principal)
CPT/HCPCS: 99213; 73030; 73610

== ENCOUNTER 2018-12-30 10:52 | Outpatient (REF) | payer MEDICARE, SELFPAY ==
[2019-01-04 14:16] LABS: 6-monoacetylmorphine Not Detected ng/mL (Cutoff: 25); Amphetamines Negative ng/mL (Cutoff: 500); Barbiturates Negative ng/mL (Cutoff: 200); Benzodiazepines Negative ng/mL (Cutoff: 100); Buprenorphine Not Detected ng/mL (Cutoff: 5); Cocaine Negative ng/mL (Cutoff: 150); Codeine Present ng/mL (Cutoff: 25); Comment Normal; Creatinine, U 117.1 mg/dL; Dihydrocodeine Not Detected ng/mL (Cutoff: 25); EDDP Not Detected ng/mL (Cutoff: 25); Fentanyl Not Detected ng/mL (Cutoff: 2); Hydrocodone Present ng/mL (Cutoff: 25); Hydromorphone Not Detected ng/mL (Cutoff: 25); Hydromorphone-3-beta-glucuroni Not Detected ng/mL (Cutoff: 100); Meperidine Not Detected ng/mL (Cutoff: 25); Methadone Not Detected ng/mL (Cutoff: 25); Morphine Present ng/mL (Cutoff: 25); N-desmethyltapentadol Not Detected ng/mL (Cutoff: 50); Naloxone Not Detected ng/mL (Cutoff: 25); Norfentanyl Not Detected ng/mL (Cutoff: 2); Norhydrocodone Present ng/mL (Cutoff: 25); Normeperidine Not Detected ng/mL (Cutoff: 25); Noroxycodone Not Detected ng/mL (Cutoff: 25); Noroxymorphone Not Detected ng/mL (Cutoff: 25); O-desmethyltramadol Not Detected ng/mL (Cutoff: 25); Phencyclidine Negative ng/mL (Cutoff: 25); Propoxyphene Not Detected ng/mL (Cutoff: 25); Specific Gravity 1.014; Tapentadol Not Detected ng/mL (Cutoff: 25); Tetrahydrocannabinol Negative ng/mL (Cutoff: 50); Tramadol Not Detected ng/mL (Cutoff: 25); pH 5.7
== END 2018-12-30 11:12 ==
LOC: NCHCN 10:52
PROVIDERS: PCP Nurse Practitioner Adult Health; Visit Provider Nurse Practitioner Family
DX: Z79.891 Long term (current) use of opiate analgesic (principal); G89.29 Other chronic pain
CPT/HCPCS: 80307; 80364

== ENCOUNTER 2019-02-18 10:28 | Outpatient (CLI) | payer MEDICARE, SELFPAY ==
[2019-02-18 11:52] LABS: Abs Immature Grans 0.01 k/cumm (0.0-0.09); Absolute Basophil Count 0.07 k/cumm (0.0-0.2); Absolute Eosinophil Count 0.35 k/cumm (0.0-0.7); Absolute Lymphocyte Count 2.68 k/cumm (1.2-3.4); Absolute Monocyte Count 0.66 k/cumm (0.11-0.7); Absolute Neutrophil Count 3.04 k/cumm (1.2-6.7); Eosinophils % 5.1; HCT 39.4 % (36.0-46.0); HGB 12.9 g/dL (12.0-15.5); Immature Grans % 0.1; Lymphocytes % 39.4; Mean Corp. HGB Concentration 32.7 g/dL (32.0-36.0); Mean Corpuscular Hemoglobin 30.6 pg (27.0-33.0); Mean Corpuscular Volume 93.6 fL (80-95); Mean Platelet Volume 10.8 fL (8.0-11.0); Monocytes % 9.7; Neutrophils % 44.7; Platelet Count 299 x1000/uL (130-400); RBC 4.21 m/cumm (4.00-5.20); RBC Distribution Width 14.6 % (11.7-14.6); White Blood Cell Count 6.81 k/cumm (4.4-10.8)
[2019-02-18 12:57] LABS: ALT 28 U/L (12-78); AST 29 U/L (15-37); Albumin 3.1 g/dL (3.4-5.0); Alkaline Phosphatase 151 U/L (46-116); Anion Gap 8.3 mmol/L (3-11); BUN 16 mg/dL (7-18); Bilirubin, Total 0.6 mg/dL (0.2-1.0); CO2 26.7 mmol/L (21.0-32.0); CREATININE 0.79 mg/dL (0.55-1.02); Calcium 8.5 mg/dL (8.5-10.1); Calculated LDL 82 mg/dL; Chloride 104 mmol/L (98-107); Cholesterol 151 mg/dL (50-200); Glucose 199 mg/dL (70-100); HDL Cholesterol 48 mg/dL (40-60); Magnesium 1.7 mg/dL (1.8-2.4); Potassium 4.6 mmol/L (3.5-5.1); Sodium 139 mmol/L (136-145); TSH (W/Ref FT4) 9.76 uIU/mL (0.358-3.74); Total Protein 6.3 g/dL (6.4-8.2); Triglyceride 109 mg/dL (30-150)
[2019-02-18 13:00] LABS: COMMENT (LAB VIEW ONLY) 154.21 mg/dL; Microalb ug/mg Crea 38.3 ug/mg Cr
[2019-02-18 13:24] LABS: Hemoglobin A1C 6.6 % (4.5-6.2)
[2019-02-18 13:56] LABS: FREE T4 1.04 ng/dL (0.76-1.46)
== END 2019-02-18 10:48 ==
PROVIDERS: PCP Nurse Practitioner Adult Health; Visit Provider Nurse Practitioner Adult Health
DX: E03.9 Hypothyroidism, unspecified (principal); E10.9 Type 1 diabetes mellitus without complications; E83.42 Hypomagnesemia; I10 Essential (primary) hypertension
CPT/HCPCS: 36415; 80053; 80061; 83721; 82043; 82570; 83036; 83735; 84439; 84443; 85025

== ENCOUNTER 2019-04-20 14:00 | Outpatient (REF) | payer MEDICARE, SELFPAY ==
[2019-04-24 19:28] LABS: 6-monoacetylmorphine Not Detected ng/mL (Cutoff: 25); Amphetamines Negative ng/mL (Cutoff: 500); Barbiturates Negative ng/mL (Cutoff: 200); Benzodiazepines Negative ng/mL (Cutoff: 100); Buprenorphine Not Detected ng/mL (Cutoff: 5); Cocaine Negative ng/mL (Cutoff: 150); Codeine Present ng/mL (Cutoff: 25); Comment Normal; Creatinine, U 120.9 mg/dL; Dihydrocodeine Not Detected ng/mL (Cutoff: 25); EDDP Not Detected ng/mL (Cutoff: 25); Fentanyl Not Detected ng/mL (Cutoff: 2); Hydrocodone Present ng/mL (Cutoff: 25); Hydromorphone Not Detected ng/mL (Cutoff: 25); Hydromorphone-3-beta-glucuroni Not Detected ng/mL (Cutoff: 100); Meperidine Not Detected ng/mL (Cutoff: 25); Methadone Not Detected ng/mL (Cutoff: 25); Morphine Present ng/mL (Cutoff: 25); N-desmethyltapentadol Not Detected ng/mL (Cutoff: 50); Naloxone Not Detected ng/mL (Cutoff: 25); Norbuprenorphine Not Detected ng/mL (Cutoff: 5); Norhydrocodone Present ng/mL (Cutoff: 25); Normeperidine Not Detected ng/mL (Cutoff: 25); Noroxycodone Not Detected ng/mL (Cutoff: 25); Noroxymorphone Not Detected ng/mL (Cutoff: 25); O-desmethyltramadol Not Detected ng/mL (Cutoff: 25); Phencyclidine Negative ng/mL (Cutoff: 25); Propoxyphene Not Detected ng/mL (Cutoff: 25); Specific Gravity 1.017; Tapentadol Not Detected ng/mL (Cutoff: 25); Tetrahydrocannabinol Negative ng/mL (Cutoff: 50); Tramadol Not Detected ng/mL (Cutoff: 25); pH 5.7
== END 2019-04-20 14:20 ==
LOC: LBN 14:00
PROVIDERS: PCP Nurse Practitioner Adult Health; Visit Provider Nurse Practitioner Family
DX: G89.29 Other chronic pain (principal); Z79.891 Long term (current) use of opiate analgesic
CPT/HCPCS: 80307; 80364

== ENCOUNTER 2019-05-23 14:31 | Outpatient (CLI) | payer MEDICARE, SELFPAY | END 2019-05-23 14:51 | PROVIDERS: PCP Nurse Practitioner Family; Visit Provider Nurse Practitioner Family | DX: E03.9 Hypothyroidism, unspecified (principal) | CPT/HCPCS: 36415; 84443 ==

== ENCOUNTER 2019-07-18 13:32 | Outpatient (REF) | payer MEDICARE, SELFPAY ==
[2019-07-18 20:07] LABS: TSH (W/Ref FT4) 46.98 uIU/mL (0.36-3.74)
[2019-07-18 21:05] LABS: FREE T4 0.58 ng/dL (0.76-1.46)
[2019-07-21 09:27] LABS: 2-Hydroxy Ethyl Flurazepam Not Detected ng/mL (Cutoff: 10); 6-monoacetylmorphine Not Detected ng/mL (Cutoff: 25); Alpha-Hydroxy Midazolam Not Detected ng/mL (Cutoff: 10); Alpha-Hydroxy Triazolam Not Detected ng/mL (Cutoff: 10); Alpha-Hydroxyalprazolam Not Detected ng/mL (Cutoff: 10); Alpha-OH-alprazolam Glucuronid Not Detected ng/mL (Cutoff: 50); Alprazolam Not Detected ng/mL (Cutoff: 10); Amphetamines Negative ng/mL (Cutoff: 500); Barbiturates Negative ng/mL (Cutoff: 200); Buprenorphine Not Detected ng/mL (Cutoff: 5); Chlordiazepoxide Not Detected ng/mL (Cutoff: 10); Clobazam Not Detected ng/mL (Cutoff: 10); Clonazepam Not Detected ng/mL (Cutoff: 10); Cocaine Negative ng/mL (Cutoff: 150); Codeine Present ng/mL (Cutoff: 25); Comment Normal; Creatinine, U 109.8 mg/dL; Diazepam Not Detected ng/mL (Cutoff: 10); Dihydrocodeine Not Detected ng/mL (Cutoff: 25); EDDP Not Detected ng/mL (Cutoff: 25); Fentanyl Not Detected ng/mL (Cutoff: 2); Flurazepam Not Detected ng/mL (Cutoff: 10); Hydrocodone Present ng/mL (Cutoff: 25); Hydromorphone Not Detected ng/mL (Cutoff: 25); Hydromorphone-3-beta-glucuroni Not Detected ng/mL (Cutoff: 100); Lorazepam Not Detected ng/mL (Cutoff: 10); Lorazepam Glucuronide Not Detected ng/mL (Cutoff: 50); Meperidine Not Detected ng/mL (Cutoff: 25); Methadone Not Detected ng/mL (Cutoff: 25); Midazolam Not Detected ng/mL (Cutoff: 10); Morphine Present ng/mL (Cutoff: 25); N-Desmethylclobazam Not Detected ng/mL (Cutoff: 200); N-desmethyltapentadol Not Detected ng/mL (Cutoff: 50); Naloxone Not Detected ng/mL (Cutoff: 25); Norbuprenorphine Not Detected ng/mL (Cutoff: 5); Norfentanyl Not Detected ng/mL (Cutoff: 2); Norhydrocodone Present ng/mL (Cutoff: 25); Normeperidine Not Detected ng/mL (Cutoff: 25); Noroxycodone Not Detected ng/mL (Cutoff: 25); Noroxymorphone Not Detected ng/mL (Cutoff: 25); O-desmethyltramadol Not Detected ng/mL (Cutoff: 25); Oxazepam Glucuronide Not Detected ng/mL (Cutoff: 50); Phencyclidine Negative ng/mL (Cutoff: 25); Prazepam Not Detected ng/mL (Cutoff: 10); Propoxyphene Not Detected ng/mL (Cutoff: 25); Specific Gravity 1.017; Tapentadol Not Detected ng/mL (Cutoff: 25); Temazepam Not Detected ng/mL (Cutoff: 10); Temazepam Glucuronide Not Detected ng/mL (Cutoff: 50); Tetrahydrocannabinol Negative ng/mL (Cutoff: 50); Tramadol Not Detected ng/mL (Cutoff: 25); Triazolam Not Detected ng/mL (Cutoff: 10); Zolpidem Phenyl-4-Carboxy acid Not Detected ng/mL (Cutoff: 10); pH 5.6
== END 2019-07-18 13:52 ==
LOC: LBN 13:32
PROVIDERS: PCP Nurse Practitioner Family; Visit Provider Nurse Practitioner Family
DX: Z79.891 Long term (current) use of opiate analgesic (principal); E03.9 Hypothyroidism, unspecified; G89.29 Other chronic pain
CPT/HCPCS: 80307; 80347; 80364; 84439; 84443

== ENCOUNTER 2019-08-23 22:08 | Outpatient (REF) | payer MEDICARE, SELFPAY ==
[2019-08-23 20:14] LABS: TSH (W/Ref FT4) 37.31 uIU/mL (0.36-3.74)
[2019-08-23 20:32] LABS: FREE T4 0.59 ng/dL (0.76-1.46)
== END 2019-08-23 22:28 ==
LOC: NCHCN 22:08
PROVIDERS: PCP Nurse Practitioner Family; Visit Provider Nurse Practitioner Family
DX: E03.9 Hypothyroidism, unspecified (principal)
CPT/HCPCS: 84439; 84443

== ENCOUNTER 2019-10-13 11:03 | Outpatient (REF) | payer MEDICARE, SELFPAY ==
[2019-10-15 14:55] LABS: 2-Hydroxy Ethyl Flurazepam Not Detected ng/mL (Cutoff: 10); 6-monoacetylmorphine Not Detected ng/mL (Cutoff: 25); Alpha-Hydroxy Midazolam Not Detected ng/mL (Cutoff: 10); Alpha-Hydroxy Triazolam Not Detected ng/mL (Cutoff: 10); Alpha-Hydroxyalprazolam Not Detected ng/mL (Cutoff: 10); Alpha-OH-alprazolam Glucuronid Not Detected ng/mL (Cutoff: 50); Alprazolam Not Detected ng/mL (Cutoff: 10); Amphetamines Negative ng/mL (Cutoff: 500); Barbiturates Negative ng/mL (Cutoff: 200); Buprenorphine Not Detected ng/mL (Cutoff: 5); Chlordiazepoxide Not Detected ng/mL (Cutoff: 10); Clobazam Not Detected ng/mL (Cutoff: 10); Clonazepam Not Detected ng/mL (Cutoff: 10); Cocaine Negative ng/mL (Cutoff: 150); Codeine Present ng/mL (Cutoff: 25); Comment Normal; Diazepam Not Detected ng/mL (Cutoff: 10); Dihydrocodeine Present ng/mL (Cutoff: 25); EDDP Not Detected ng/mL (Cutoff: 25); Fentanyl Not Detected ng/mL (Cutoff: 2); Flurazepam Not Detected ng/mL (Cutoff: 10); Hydrocodone Present ng/mL (Cutoff: 25); Hydromorphone Not Detected ng/mL (Cutoff: 25); Hydromorphone-3-beta-glucuroni Not Detected ng/mL (Cutoff: 100); Lorazepam Not Detected ng/mL (Cutoff: 10); Lorazepam Glucuronide Not Detected ng/mL (Cutoff: 50); Meperidine Not Detected ng/mL (Cutoff: 25); Methadone Not Detected ng/mL (Cutoff: 25); Midazolam Not Detected ng/mL (Cutoff: 10); Morphine Present ng/mL (Cutoff: 25); N-Desmethylclobazam Not Detected ng/mL (Cutoff: 200); N-desmethyltapentadol Not Detected ng/mL (Cutoff: 50); Naloxone Not Detected ng/mL (Cutoff: 25); Norbuprenorphine Not Detected ng/mL (Cutoff: 5); Norfentanyl Not Detected ng/mL (Cutoff: 2); Norhydrocodone Present ng/mL (Cutoff: 25); Normeperidine Not Detected ng/mL (Cutoff: 25); Noroxycodone Not Detected ng/mL (Cutoff: 25); Noroxymorphone Not Detected ng/mL (Cutoff: 25); O-desmethyltramadol Not Detected ng/mL (Cutoff: 25); Oxazepam Glucuronide Not Detected ng/mL (Cutoff: 50); Phencyclidine Negative ng/mL (Cutoff: 25); Prazepam Not Detected ng/mL (Cutoff: 10); Propoxyphene Not Detected ng/mL (Cutoff: 25); Tapentadol Not Detected ng/mL (Cutoff: 25); Temazepam Not Detected ng/mL (Cutoff: 10); Temazepam Glucuronide Not Detected ng/mL (Cutoff: 50); Tetrahydrocannabinol Negative ng/mL (Cutoff: 50); Tramadol Not Detected ng/mL (Cutoff: 25); Triazolam Not Detected ng/mL (Cutoff: 10); Zolpidem Phenyl-4-Carboxy acid Not Detected ng/mL (Cutoff: 10); pH 7.7
== END 2019-10-13 11:23 ==
LOC: LBN 11:03
PROVIDERS: PCP Nurse Practitioner Family; Visit Provider Nurse Practitioner Family
DX: Z79.891 Long term (current) use of opiate analgesic (principal)
CPT/HCPCS: 80307; 80347; 80364

== ENCOUNTER 2019-10-21 14:18 | Outpatient (REF) | payer MEDICARE, SELFPAY | END 2019-10-21 14:38 | LOC: NCHCN 14:18 | PROVIDERS: PCP Nurse Practitioner Family; Visit Provider Nurse Practitioner Family | DX: R30.0 Dysuria (principal) | CPT/HCPCS: 87077; 87086; 87186 ==

== ENCOUNTER 2019-12-28 15:00 | Emergency (ER) | payer SELFPAY, MEDICARE ==
--- NOTE | 2019-12-28 15:19 | NUR.NOTE ---
Nursing Note: entered in error.
== END 2019-12-28 15:21 ==
PROVIDERS: PCP Nurse Practitioner Family
DX: S05.02XA Injury of conjunctiva and corneal abrasion without foreign body, left eye, initial encounter (principal); X58.XXXA Exposure to other specified factors, initial encounter
CPT/HCPCS: 73562

== ENCOUNTER 2020-01-01 15:38 | Inpatient (IN) | payer MEDICARE, SELFPAY ==
[2020-01-01] VITALS (7 sets, daily range): BP systolic 166–194; BP diastolic 73–91; PULSE 84–89; RESP 16–19; TEMP 36.5–36.7; O2SAT 94
--- NOTE | 2020-01-01 | DI.CT_ITS ---
EXAM: CT LOWER EXTREMITY RT WO CLINICAL HISTORY: r/o fractrue, trauma TECHNIQUE: COMPARISON: CT CT upper extremity RT wo from 09/15/2018 CR,XR XR FEMUR LT from 01/01/2020 FINDINGS: CT examination of the knee was performed utilizing multi slice acquisition and multiplanar reconstruc tion. There is deformity of the lateral tibial plateau which appears likely old, no fracture lucency or cortical disruption seen at this time. There are degenerative changes of joints of the knee. No significant joint effusion identified. IMPRESSION: No fracture identified by CT criteria. If there is a high clinical suspicion of occult fracture ilya tional evaluation with MR could be considered..
--- NOTE | 2020-01-01 | DI.CT_ITS ---
EXAM: CT LOWER EXTREMITY LT WO CLINICAL HISTORY: distal left femur fracture TECHNIQUE: COMPARISON: CT CT LOWER EXTREMITY RT WO from 01/01/2020 CR,XR XR FEMUR LT from 01/01/2020 CR,XR XR FEMUR LT from 01/01/2020 FINDINGS: Four radiographic views of the femur were obtained. There is compression screw fixating a healed int ertrochanteric fracture of the femur. No proximal fracture seen. On the AP view there is an apparent nondisplaced supracondylar fracture with minimal cortical disrupt ion seen laterally. CT examination performed confirms nondisplaced fracture of distal femur with cortical disruption dist al metaphysis laterally, this also extends in a vertical fashion to the articular surface the lateral femoral condyle, again nondisplaced. No additional fracture seen. Moderate knee joint effusion not ed. IMPRESSION: Nondisplaced fracture of the distal femur as described above, the fracture extends vertically from th e lateral aspect of the distal metaphysis to the articular surface of the lateral femoral condyle.
--- NOTE | 2020-01-01 16:01 | W.PM.HP.N ---
Date of service: 01/01/20 Time of Service: 16:20 Assessment and Plan Assessment and plan (1) Femur fracture, left: Start date: 01/01/20 Start time: 16:26 Status: Acute Assessment and plan: Evidenced by imaging, Transferred from [facility] for management by dr. hayes, currently in a brace. Pain management of oxycodone and morphine IV Unsure if surgery tomorrow, will make NPO with sips for medications SCDs Teds, hold anticoagulation in case of surgery Ortho recommend CT scan of right hip and Left xray of femur (2) HTN (hypertension): Start date: 01/01/20 Start time: 16:28 Status: Chronic Assessment and plan: Hypertensive at this time, will monitor. She does endorse pain will have nursing reconcile meds and order. (3) Hypothyroidism: Start date: 01/01/20 Start time: 16:29 Status: Chronic Assessment and plan: Continue home medication (4) Vitamin D deficiency: Start date: 01/01/20 Start time: 16:29 Status: Chronic Assessment and plan: Check vitamin D level with Basic labs in am. (5) Diabetes mellitus type 1: Start date: 01/01/20 Start time: 16:30 Status: Chronic Assessment and plan: Initally on admission to [facility] patient was hypoglycemic at 22. She did not have any further episodes per [facility] Provider Bethanie Acuna MD. BGL today 275. Will give moderate sliding scale insulin. Will give half dose insulin at 13 for NPO status. Above case discussed with Dr. Flores who is in agreement. History of Present Illness History of Present Illness Chief Complaint: Femur fracture Narrative: 79 y.o female transferred from [facility] arriving by EMS for left femur fracture. She was seen by the ED on 12/27 and dx with questionable nondisplaced fx of the left distal femur vx artifact. Injury was sustained after falling on deck through planks. She sustained bilateral abrasions worse to right lower extremity. Xray at [facility] was found to have l femur fx. She insisted on being admitted to Dr. Hayes service. Ortho has agreed to consult on patient. She is being admitted to hospitalist service. On initial admission to [facility] she was hypoglycemic with bgl 22. Since admission yesterday she has not had any episodes. Dr. Hayes consulted. Brace to left knee, plan for CT scan today and xray per ortho recommendation. She denies CP, SOB, N/V/D. Review of Systems All systems reviewed & are unremarkable except as noted in HPI and below PFSH Medical History Anxiety and depression (Acute) Closed fracture of right proximal humerus (Resolved ~09/2018) History of fracture of left hip (Resolved) HTN (hypertension) (Chronic) Hypothyroidism (Chronic) Dx'ed 14yo Mandaen (Chronic) Refused blood products. Neuropathy (Acute) Peripheral neuropathy (Chronic) Insensate lower extremities, chronic pain managed with Lyrica and Tylenol with codeine No. 4. S/P ORIF (open reduction internal fixation) fracture (Inactive) L hip Trigger finger, right (Chronic) [facility] Ortho consult 07/2018; splint recommended (pt wanted to avoid surgery) Vitamin D deficiency (Chronic) Surgical History H/O sinus surgery (Acute) H/O thumb surgery (Acute) History of cataract surgery (Inactive) History of cholecystectomy (Chronic) History of cholecystectomy (Inactive) History of gastric bypass (Inactive) History of sinus surgery (Inactive) History of tonsillectomy (Chronic) S/P wrist surgery (Acute) Family History Father Diabetes Type 2 Heart disease Mother Stroke Social History Smoking/Tobacco Use Status: Never Alcohol Intake: current Alcohol Intake frequency: a few times a week Alcohol type: wine Drug use: Never Substance use type: does not use Household members: spouse Housing: house Number of Children: 2 What type of physical activity do you participate in: none Do you feel safe in your relationship?: Yes Meds Home Medications and Allergies Home Medications Medication Instructions Recorded Confirmed Type Glucagon Emergency Kit (human) 1 mg . DIRECTED PRN 05/08/13 10/13/19 History potassium chloride 20 mEq 20 meq PO DAILY 01/10/19 10/13/19 History tablet,extended release(part/cryst) insulin glargine 100 unit/mL See Rx Instructions SC QHS 03/11/19 10/13/19 History subcutaneous solution insulin lispro 100 unit/mL See Rx Instructions SUBCUT DAILY 03/11/19 10/13/19 History subcutaneous cartridge multivitamin 1 tab PO DAILY 03/11/19 10/13/19 History Synthroid 125 mcg tablet 125 mcg PO DAILY #90 tab NS 04/06/19 10/13/19 Rx lisinopril 40 mg tablet 40 mg PO DAILY #90 tab 04/06/19 10/13/19 Rx propranolol 20 mg tablet 20 mg PO BID #180 tab 04/06/19 10/13/19 Rx blood sugar diagnostic #200 each 04/25/19 10/13/19 Rx pregabalin 150 mg capsule 150 mg PO BID 30 Days #60 cap 05/04/19 10/13/19 Rx diclofenac sodium 1 % topical gel 2 gm TP QID PRN 13 Days #100 gm 09/19/19 10/13/19 Rx carvedilol 12.5 mg tablet 12.5 mg PO BID 09/21/19 10/13/19 History hydrochlorothiazide 25 mg tablet 25 mg PO DAILY 09/21/19 10/13/19 History nortriptyline 10 mg capsule 20 mg PO DAILY cap 09/21/19 10/13/19 History acetaminophen 300 mg-codeine 30 mg 1 tab PO TID PRN 28 Days #84 tab 10/19/19 Rx tablet MDD 3 tablets/day acetaminophen 300 mg-codeine 30 mg 1 tab PO BID PRN 14 Days #28 tab 12/29/19 Rx tablet MDD 2 tabs/day Allergies Allergy/AdvReac Type Severity Reaction Status Date / Time latex Allergy Unknown Verified 10/13/19 10:45 propoxyphene HCl Allergy Unknown Verified 10/13/19 10:45 [From Darvon] milk AdvReac Intermediate nausea/diar Verified 10/13/19 10:45 jermaine Exam Const General: cooperative and ill appearing chronically Nutritional Appearance: average body habitus Orientation: alert, awake and oriented x3 HENMT Head: normal to inspection, normocephalic and atraumatic Face and sinus: normal facial exam Eyes General: appearance normal, both eyes and all related structures Pupils: PERRL EOM: EOM intact bilaterally Neck Neck: normal visual inspection, full ROM and no JVD Lymphatic: no lymphadenopathy noted Chest Chest: normal inspection of the chest Resp Effort & Inspection: normal respiratory effort and able to speak in complete sentences Auscultation: clear to auscultation bilaterally Cardio Jugular venous pressure: no JVD Rhythm: regular rhythm Heart Sounds: S1 normal and S2 normal GI Inspection: normal to inspection Palpation: soft and no hepatosplenomegaly General: deferred Back/Spine/Pelvis Back: no CVA tenderness Skin Wounds: wounds noted (right lower extremity, bandaged, at this time, clean dry and intact) Neuro General: patient alert, patient awake and patient oriented x3 Extrem General: abnormal to inspection, no clubbing, cyanosis or edema and no calf tenderness Right lower extremity: knee (brace to leg) Psych Appearance: grossly normal Speech and Movement: speech and movement normal Mood: congruent mood Affect: normal affect Attitude: cooperative Thought Process: normal Thought Content: normal COVID-19 Screening In the past 14 days, have you traveled outside of [place] or [place]?: NO Recent travel in the [facility] within the last 14 days?: Yes Recent out of the country travel within the last 14 days?: Yes Exposure or possible exposure to illness during travel?: No Had IN PERSON contact w/suspected or confirmed C-19 person: No Have you had the following symptoms in the past few days?: No Symptoms noted since travel?: No Symptoms
[2020-01-01] MEDS: oxyCODONE 5 MG TAB PO (16:50)
--- NOTE | 2020-01-01 17:44 | DI.VRAD_ITS ---
PROCEDURE INFORMATION: Exam: XR Left Femur Exam date and time: 01/01/2020 5:15 PM Age: 79 years old Clinical indication: Other: Trauma, fracture; Prior surgery; Surgery date: 6+ months; Surgery type: H/o FX, internal fixation many years ago. TECHNIQUE: Imaging protocol: XR Left femur. Views: 2 views. COMPARISON: CR XR KNEE LT 3V AP,LAT,BYRON 12/28/2019 3:18 PM FINDINGS: Bones/joints: Intramedullary nail and plate and screw fixation of the proximal left femur with intact appearing hardware. Possible cortical disruption through the ventral aspect of the proximal tibial metaphysis. Soft tissues: Vascular calcifications. IMPRESSION: 1. Possible cortical disruption through the ventral aspect of the proximal tibial metaphysis, on lateral view only, however evaluation is by overexposure/artifact. Recommend clinical correlation and consider further evaluation with CT if warranted. 2. Status post intramedullary nail and plate and screw fixation of the proximal left femur with intact appearing hardware. Dictated and Authenticated by: Darío Plasencia MD. Ordering:EVARISTO Turner MD
--- NOTE | 2020-01-01 17:47 | DI.VRAD_ITS ---
PROCEDURE INFORMATION: Exam: CT Right Lower Extremity Without Contrast, Knee Exam date and time: 01/01/2020 5:08 PM Age: 79 years old Clinical indication: Other: Trauma, R/O fracture TECHNIQUE: Imaging protocol: CT of the Right lower extremity without contrast was performed. Exam focused on the knee. Radiation optimization: All CT scans at this facility use at least one of these dose optimization techniques: automated exposure control; mA and/or kV adjustment per patient size (includes targeted exams where dose is matched to clinical indication); or iterative reconstruction. COMPARISON: CR XR knee RT 3V AP,lat,mejia 09/16/2018 3:51 PM FINDINGS: Bones/joints: No definite acute fracture. Joint spaces are maintained. No significant joint effusion. Mild abnormal focal cortical angulation in the lateral corner of the lateral tibial plateau. Remote appearing ossification along the posterior margin of the lateral femoral epicondyle. Soft tissues: Mild soft tissue stranding along the lateral margin of the knee Vasculature: Vascular calcifications. IMPRESSION: Mild focal cortical angulation in the corner of the lateral tibial plateau appears degenerative in etiology though small nondisplaced fracture cannot be excluded; particularly given mild adjacent soft tissue stranding. Recommend clinical correlation. Dictated and Authenticated by: Darío Plasencia MD. Ordering:EVARISTO Turner MD
[2020-01-01] MEDS: Normal Saline 1,000 ML 100 ML IV (19:12)
--- NOTE | 2020-01-01 19:36 | NUR.NOTE ---
Pt off floor for CT scanNursing Note:
--- NOTE | 2020-01-01 20:10 | DI.VRAD_ITS ---
PROCEDURE INFORMATION: Exam: CT Left Lower Extremity Without Contrast; Thigh Exam date and time: 01/01/2020 7:40 PM Age: 79 years old Clinical indication: Other: Distal lt femur FX TECHNIQUE: Imaging protocol: CT of the Left lower extremity without contrast was performed. Exam focused on the thigh. Radiation optimization: All CT scans at this facility use at least one of these dose optimization techniques: automated exposure control; mA and/or kV adjustment per patient size (includes targeted exams where dose is matched to clinical indication); or iterative reconstruction. COMPARISON: CR XR FEMUR LT 01/01/2020 5:15 PM FINDINGS: Bones/joints: Small nondisplaced fracture at the junction of the left femoral distal metaphysis and lateral epicondyle. Additional intra-articular hairline fracture through the lateral femoral condyle as best appreciated on coronal series 6, image [id number]. Joint spaces are maintained. The click he the Small joint effusion. Soft tissues: The knee mild soft tissue stranding about the knee. Vasculature: Vascular calcifications. IMPRESSION: 1. Small nondisplaced fracture at the junction of the left femoral distal metaphysis/lateral epicondyle. 2. Intra-articular hairline fracture through the lateral femoral condyle. 3. Small joint effusion. 4. No acute abnormality along the visualized anterior tibia suggesting artifact on prior same-day radiograph. Dictated and Authenticated by: Darío Plasencia MD. Ordering:BlaiseCHRISTUS ST. VINCENT PHYSICIANS MEDICAL CENTERCalos Hill MD
[2020-01-01] MEDS: Carvedilol 12.5 MG TAB PO (20:19)
[2020-01-01] MEDS: Lisinopril 20 MG TAB 40 MG PO (20:19)
[2020-01-01] MEDS: Normal Saline Flush 10 ML SYR IVP (20:19)
[2020-01-01] MEDS: Insulin Glargine 300 UNITS/3 ML PEN 13 UNITS SC (21:53)
[2020-01-02 05:11] VITALS: BP 153/74; PULSE 85; RESP 18; TEMP 36.9; O2SAT 95
[2020-01-02] MEDS: Normal Saline 1,000 ML 100 ML IV (06:03)
[2020-01-02 07:07] LABS: Abs Immature Grans 0.02 k/cumm (0.0-0.09); Absolute Basophil Count 0.02 k/cumm (0.0-0.2); Absolute Eosinophil Count 0.19 k/cumm (0.0-0.7); Absolute Lymphocyte Count 1.71 k/cumm (1.2-3.4); Absolute Monocyte Count 0.72 k/cumm (0.11-0.7); Absolute Neutrophil Count 5.15 k/cumm (1.2-6.7); Basophils % 0.3; Eosinophils % 2.4; HCT 32.8 % (36.0-46.0); HGB 10.8 g/dL (12.0-15.5); Immature Grans % 0.3 %; Lymphocytes % 21.9; Mean Corp. HGB Concentration 32.9 g/dL (32.0-36.0); Mean Corpuscular Hemoglobin 29.9 pg (27.0-33.0); Mean Corpuscular Volume 90.9 fL (80-95); Monocytes % 9.2; Neutrophils % 65.9; Platelet Count 273 x1000/uL (130-400); RBC 3.61 m/cumm (4.00-5.20); RBC Distribution Width 12.9 % (11.7-14.6); White Blood Cell Count 7.81 k/cumm (4.4-10.8)
[2020-01-02 07:18] LABS: BUN 8 mg/dL (7-18); Calcium 8.5 mg/dL (8.5-10.1); Chloride 102 mmol/L (98-107); Glucose 113 mg/dL (74-106); Magnesium 1.5 mg/dL (1.8-2.4); Potassium 3.1 mmol/L (3.5-5.1); Sodium 140 mmol/L (136-145)
[2020-01-02 07:37] VITALS: BP 170/85; PULSE 107; RESP 18; TEMP 36.7; O2SAT 95
[2020-01-02] MEDS: Carvedilol 12.5 MG TAB PO ×2 (08:26→10:57)
[2020-01-02] MEDS: Pregabalin 50 MG CAP 150 MG PO ×2 (08:27→19:53)
[2020-01-02] MEDS: Potassium Chloride 20 MEQ TABCR PO ×2 (08:27→10:01)
[2020-01-02] MEDS: Levothyroxine 125 MCG TAB PO (08:28)
[2020-01-02] MEDS: Omeprazole 20 MG CAPCR PO (08:28)
[2020-01-02] MEDS: MAGNESIUM SULFATE 4 GM/100 ML BAG IVPB (08:28)
[2020-01-02] MEDS: Multivitamin TAB 1 TAB PO (08:28)
[2020-01-02] MEDS: Lisinopril 20 MG TAB 40 MG PO (08:28)
[2020-01-02] MEDS: Loperamide 2 MG CAP 4 MG PO ×2 (08:40→09:59)
[2020-01-02] MEDS: oxyCODONE 5 MG TAB PO ×2 (08:40→16:22)
[2020-01-02 09:00] VITALS: BP 174/80; PULSE 80
--- NOTE | 2020-01-02 09:46 | INITIAL_ITS ---
- If Service Date Differs Date of service: 01/02/20 Time of Service: 09:46 Care Management Initial Assess REASON FOR HOSPITALIZATION:: Fractured femur PAST MEDICAL HISTORY/PAST SURGICAL HISTORY:: Medical History . Anxiety and depression (Acute). Closed fracture of right proximal humerus (Resolved ~09/2018). History of fracture of left hip (Resolved). HTN (hypertension) (Chronic). Hypothyroidism (Chronic). Dx'ed 14yo. Muslim (Chronic). Refused blood products. Neuropathy (Acute). Peripheral neuropathy (Chronic). Insensate lower extremities, chronic pain managed with Lyrica and Tylenol with codeine No. 4. S/P ORIF (open reduction internal fixation) fracture (Inactive). L hip. Trigger finger, right (Chronic). [facility] Ortho consult 07/2018; splint recommended (pt wanted to avoid s urgery). Vitamin D deficiency (Chronic). Surgical History . H/O sinus surgery (Acute). H/O thumb surgery (Acute). History of cataract surgery (Inactive). History of cholecystectomy (Chronic). History of cholecystectomy (Inactive). History of gastric bypass (Inactive). History of sinus surgery (Inactive). History of tonsillectomy (Chronic). S/P wrist surgery (Acute) PREVIOUS FUNCTIONAL STATUS/SOCIAL/FAMILY SUPPORTS:: Gale resides in [place] with her of 57 years, Federico. Gale has not worked outside the home. 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 Both sons are currently living out of state as are her 4 granddaughters. Gale is independent at baseline and manages ADL's, in addition to all of the household cooking, cleaning, shopping etc. CURRENT FUNCTIONAL STATUS:: Gale was sitting up in a chair when CM met with her. She was very open and engaged readily with CM. She dispalyed a good sense of humor, sharing stories about life at home.Gale stated that she feels she will safely be able to return home. She lives in a single family homew which is all on one floor, however she does need to climb 5 steps to gain entry. She states they have a ramp and an electric wheelchair, walker and several canes. Her is home and able to help her. ADVANCE DIRECTIVES:: On file. Federico CARLOS Has patient been provided with information about the portal?: Yes Did the patient sign up for the portal?: No CODE STATUS:: Full Code INSURANCE COVERAGE / FINANCIAL ISSUES:: Medicare CURRENT HOME/COMMUNITY SERVICES/EQUIPMENT:: Gale currently has a ramp into the house, an electric wheelchair, walker , raised toilet seat and several canes. PRIMARY CARE PHYSICIAN:: Johana Earl POTENTIAL DISCHARGE NEEDS:: Follow up with PCP and surgeon and discharge plan of care. PATIENT/FAMILY EDUCATION NEEDS:: Discharge plan, limitations, follow up plan,. Ask Me Three ANTICIPATED BARRIERS TO DISCHARGE:: None identified TRANSPORTATION:: via private vehicle with PLAN:: Gale will likely return home with new home health PT and nursing. She will follow up with her PCP and surgeon and transport via private vehicle. CM will continue to support patient, family and discharge planning needs.
[2020-01-02] MEDS: Nortriptyline 10 MG CAP 20 MG PO (10:01)
--- NOTE | 2020-01-02 10:01 | IN_ITS ---
Date of service: 01/02/20 Time of Service: 10:01 PT Notes Visit Reasons: FEMUR FX Physical Therapy Inpatient Initial Evaluation Date: 01/02/2020 Referring Doctor: Yue Ivan NP PT Orders: PT CONSULT: Limited ability. Eval/treat Precautions: Fall. Standard. NWB on L LE until per orthopedic surgeon as of 12/28/2019, awaiting orthopedic surgeons WB recommendations. Patient Profile/Admitting Diagnosis: Gale is a 79-year-old female who directly transferred from [facility] for management of a nondisplaced fracture of the distal femur on the left side sustained from a fall on 12/25/2019. CT scan showed nondisplaced fracture of the lateral aspect of the distal femoral metaphysis to the articular surface of the lateral femoral condyle. Patient was given a knee brace on the left side and was ordered by Dr. Foy on 12/28/2019 to be non weight bearing on the left LE. Referral for physical therapy was sent today for safe discharge planning and mobility retraining. PMHX: Medical History Anxiety and depression (Acute) Closed fracture of right proximal humerus (Resolved ~09/2018) History of fracture of left hip (Resolved) HTN (hypertension) (Chronic) Hypothyroidism (Chronic) Dx'ed 14yo [employer]ec[employer] (Chronic) Refused blood products. Neuropathy (Acute) Peripheral neuropathy (Chronic) Insensate lower extremities, chronic pain managed with Lyrica and Tylenol with codeine No. 4. S/P ORIF (open reduction internal fixation) fracture (Inactive) L hip Trigger finger, right (Chronic) [facility] [place]o consult 07/2018; splint recommended (pt wanted to avoid surgery) Vitamin D deficiency (Chronic) Surgical History H/O sinus surgery (Acute) H/O thumb surgery (Acute) History of cataract surgery (Inactive) History of cholecystectomy (Chronic) History of cholecystectomy (Inactive) History of gastric bypass (Inactive) History of sinus surgery (Inactive) History of tonsillectomy (Chronic) S/P wrist surgery (Acute) Social History/Home Situation: Gale lives with in a private home with a ramp to enter. Patient has a motorized wheelchair which she is able to operate over said ramp, outside, and inside of the house as she needs to. She is independent with all self-care activities at home and is managing meal preparation and cooking while seated on her motorized wheelchair. She is otherwise able to use her front wheeled walker for short distance ambulation from bed to the bedside chair and from outside of her bathroom to the toilet seat or the shower area. Her takes care of grocery shopping. Friends and neighbors are willing to help with anything as needed. She also has sons and daughters who are able to help out with chores and laundry as needed. She states that, excluding this last fall on , she has not had any for the past 12 months. Equipment Owned/DME: Motorized wheelchair, front wheeled walker, single-point cane, ramp, walk-in shower with grab bars, shower chair, electric reclining chair Subjective: Patient states that she has a good support network and hopes that she can go home as soon as she is medically cleared. She reports 4/10 pain on the left knee with movement and during transfer activities. She denies any dizziness or lightheadedness throughout mobility assessment. She emphasizes that her goal is to just be able to transfer from one surface to the other as she will be using her electric wheelchair at home. She is agreeable to home health PT following through with herto make sure that she is progressed as needed. Objective: General Observation: Knee brace on left side. IV in the R UE. Gauze around right leg. Morales catheter in place. Mental Status: Alert and oriented x4 Pain: 4/10 on the left knee with movement ROM: Right Upper Extremity: Shoulder Flexion WFL. Shoulder abduction WFL. Elbow flexion WFL. Wrist flexion WFL. Opening and closing of hand WFL. Left Upper Extremity: Shoulder Flexion WFL. Shoulder abduction WFL. Elbow flexion WFL. Wrist flexion WFL. Opening and closing of hand WFL. Right Lower Extremity: Hip flexion WFL. Hip abduction WFL. Knee flexion WFL. Ankle dorsiflexion WFL. Ankle plantarflexion WFL. Left Lower Extremity: Hip flexion WFL. Hip abduction WFL. Knee flexion NT. Ankle dorsiflexion WFL. Ankle plantarflexion WFL. Strength: Right Upper Extremity: Shoulder flexors 4/5. Shoulder abductors 4/5. Elbow flexors 4/5. Elbow extensors 4/5. Director Validation strong. Left Upper Extremity:Shoulder flexors 4/5. Shoulder abductors 4/5. Elbow flexors 4/5. Elbow extensors 4/5. Director Validation strong. Right Lower Extremity: Hip flexors 4/5. Hip abductors 4/5. Knee flexors 4/5. Knee extensors 4/5. Ankle dorsiflexors 5/5. Ankle plantarflexors 5/5. Left Lower Extremity:Hip flexors 4/5. Hip abductors 4/5. Knee flexors NT. Knee extensors NT. Ankle dorsiflexors 5/5. Ankle plantarflexors 5/5. Sensation: Patient reports diminished sensation to bilateral lower extremities due to chronic peripheral neuropathy. Bed Mobility/Transfers: Supine to sit standby assist, able to use BUE for support Sit to supine standby assist, able to use BUE for support Sit to stand contact-guard assist, able to use BUE for support, requires front wheeled walker, minimal verbal cueing for hand placement and weight bearing precaution Stand to sit contact-guard assist, able to use BUE for support, minimal verbal cueing for hand placement and weight bearing precaution Bed to chair contact-guard assist, able to use BUE for support, requires front wheeled walker, minimal verbal cueing for hand placement and weight bearing precaution Chair to bed contact-guard assist, able to use BUE for support, requires front wheeled walker, minimal verbal cueing for hand placement and weight bearing precaution Gait: Patient only tolerated pivoting twice, sidestepping once, and backing up twice onto bedside recliner to transfer with report of 4/10 pain on the left knee using front rolled walker and contact-guard assist of this PT, TERRA Santos providing standby assist for safety. NWB on left LE. Balance: Static Sitting: Normal Dynamic Sitting: Normal Static Standing: Fair Dynamic Standing: Fair Special Tests: Mobility Limitations Standardized Measure [facility] AM-PAC 6 clicks Basic Mobility Inpatient Short Form: Raw Score: 18 CMS Score: 47% deficit Informed Consent/Education: Patient instructed in purpose of PT consult and plan of care. Assessment: Gale demonstrates need for front wheeled walker for for all transfer activities, difficulty with walking due to nonweightbearing status related to recent fracture, balance impairment, and generalized weakness of the B UE/LE muscle groups resulting from admitting diagnoses. Gale is a 79-year-old female who directly transferred from [facility] for management of a nondisplaced fracture of the distal femur on the left side sustained from a fall on 12/25/2019. CT scan showed nondisplaced fracture of the lateral aspect of the distal femoral metaphysis to the articular surface of the lateral femoral condyle. Patient was given a knee brace on the left side and was ordered by Dr. Foy on 12/28/2019 to be non weight bearing on the left LE. Referral for physical therapy was sent today for safe discharge planning and mobility retraining. Patient presents with clinical signs and symptoms consistent with current/admitting diagnoses that have resulted to mobility limitations, gait instability, generalized weakness, and impairment of motor control as demonstrated by the following impairment level findings: 1. Decreased strength to B UE/LE major muscle groups 2. Impaired standing balance 3. Impaired activity tolerance 4. Inability to bear weight on left LE per orthopedic surgeon's order Impairments are contributing to the following functional limitations: 1. Increased dependence with transfers 2. Inability to safely ambulate without assistive device and physical assistance 3. Increase completion time for mobility ADL performance 4. Increased fall risk Patient is assessed as a [id number] moderate complexity based on the following: History: 79-year-old female with impairment level findings, functional limitations, and past medical history as listed above Examination: Demonstrable impairment in strength, balance, and range of motion with underlying impairments and functional limitations as documented above Presentation: Evolving Decision Makin moderate laxity Goals: Goals X1 day 1. Supine-Sit independent 2. Sit-Supine independent 3. Sit-Stand standby assist using BUE for support with a walker 4. Stand-Sit standby assist using BUE for support with a walker 5. Bed-Chair standby assist using BUE for support with a walker 6. Chair-Bed standby assist using BUE for support with a walker 7. Standby assist gait on level surface with use of least restrictive device for at least 10 feet without report of pain nor dyspnea 8. Good static and dynamic standing balance/tolerance Plan of Care/Treatment Plan: 1-2x/day, 7 days/week x 1 week. Plan of care has been reviewed with the PROFESSOR OF SOCIOLOGY providing the service under Physical Therapy direction. Initiate Physical Therapy intervention for strengthening, bed mobility, transfers, gait, stairs, balance training, use of assistive device. PT Intervention: Session today consisted of initial physical therapy evaluation as well as education and training on safe strategies for mobility ADL performance using the front wheeled walker with current weight bearing precautions. DISCHARGE RECOMMENDATIONS: No equipment needs at this time. Patient will benefit from home health PT services in order to progress mobility level using least restrictive assistive ambulatory device, assess home safety, identify additional equipment needs, and establish a functional maintenance program that will increase ability of patient to remain at home. TREATMENT CODE/TIME: 14593 x 30 minutes, 9753 0 x 13 minutes beginning at 10:01 AM. Thank you very much for this referral. Regine Felix PT, DPT, CLT [facility] [place], [place]
[2020-01-02] MEDS: POTASSIUM CHLORIDE 20 MEQ/100 ML BAG 50 MEQ IVPB ×2 (10:07→12:19)
[2020-01-02 10:29] LABS: Vitamin D 25 Total 40.9 ng/ml (30-100)
--- NOTE | 2020-01-02 10:47 | W.PM.PROGNOT ---
Date of Service Date of service: 01/02/20 Time of Service: 10:47 Assessment and Plan Assessment and plan (1) Femur fracture, left: Start date: 01/02/20 Start time: 10:51 Status: Acute Assessment and plan: Per Dr Foy, nonoperable, She will be given carb controlled heart health diet. Brace in place. PT evaluation, pain management and possible snif placement She would likely benefit from short term rehab. (2) HTN (hypertension): Start date: 01/02/20 Start time: 10:52 Status: Chronic Assessment and plan: Continues to be hypertensive. It appears she is on 2 BB will hold propranlol at this time. Increase Coreg to 25 mg BID, HR can tolerate. Consider adding CCB if bp continues to be elevated. (3) Hypothyroidism: Start date: 01/02/20 Start time: 10:57 Status: Chronic Assessment and plan: Continue home medication (4) Vitamin D deficiency: Start date: 01/02/20 Start time: 10:57 Status: Chronic Assessment and plan: level 40 sufficient. (5) Diabetes mellitus type 1: Start date: 01/02/20 Start time: 10:58 Status: Chronic Assessment and plan: Hypoglycemic episode overnight. Will give food monitor and adjust as needed. Above case discussed with Dr. Flores who is in agreement. Subjective Subjective Patient reports: no new complaints Interval history since last seen: Fx is nonoperable. Left leg in brace. Slight pain this am. BP is elevated. She appears to be on 2 bb and fang for bp, awaiting for list from pharmacy to update medication. In mean time will give coreg with increase dose to 25 mg bid as it appears HR can handle this. Also consider CCB if BP continues to be elevated. PT to work with patient. She will likely need a SNIF stay for rehab as her was unable to help her at home. Glucose in range by am labs, She is eating, toileting and tolerating a diet. She has chronic diarrhea and usually take imodium for this. She denies Cp SOB N/V/D. Exam Const General: cooperative and ill appearing chronically Nutritional Appearance: average body habitus Orientation: alert, awake and oriented x3 HENMT Head: normal to inspection, normocephalic and atraumatic Face and sinus: normal facial exam Eyes General: appearance normal, both eyes and all related structures Pupils: PERRL EOM: EOM intact bilaterally Neck Neck: normal visual inspection, full ROM and no JVD Lymphatic: no lymphadenopathy noted Chest Chest: normal inspection of the chest Resp Effort & Inspection: normal respiratory effort and able to speak in complete sentences Auscultation: clear to auscultation bilaterally Cardio Jugular venous pressure: no JVD Rhythm: regular rhythm Heart Sounds: S1 normal and S2 normal GI Inspection: normal to inspection Palpation: soft and no hepatosplenomegaly General: deferred Back/Spine/Pelvis Back: no CVA tenderness Skin Wounds: wounds noted (right lower extremity, bandaged, at this time, clean dry and intact) Neuro General: patient alert, patient awake and patient oriented x3 Extrem General: abnormal to inspection, no clubbing, cyanosis or edema and no calf tenderness Right lower extremity: knee (brace to leg) Psych Appearance: grossly normal Speech and Movement: speech and movement normal Mood: congruent mood Affect: normal affect Attitude: cooperative Thought Process: normal Thought Content: normal Objective Objective Clinical Data: Abnormal lab results 01/02/20 01/02/20 Range/Units 06:05 06:05 RBC 3.61 L (4.00-5.20) m/cumm Hgb 10.8 L (12.0-15.5) g/dL Hct 32.8 L (36.0-46.0) % Absolute Monocytes 0.72 H (0.11-0.7) k/cumm Potassium 3.1 L (3.5-5.1) mmol/L Glucose 113 H (74-106) mg/dL Magnesium 1.5 L (1.8-2.4) mg/dL Vital Signs Temperature 36.7 C 01/02/20 07:37 Temperature Source Tympanic 01/02/20 07:37 Pulse 80 01/02/20 09:00 Pulse Rhythm Regular 01/01/20 20:39 Respiratory Rate 18 01/02/20 07:37 Respiratory Effort Non-Labored 01/01/20 20:39 Respiratory Depth Normal 01/01/20 20:39 Respiratory Pattern Normal 01/01/20 20:39 Blood Pressure 174/80 H 01/02/20 09:00 Pulse Oximetry 95 01/02/20 07:37 Oxygen Delivery Method Room Air 01/02/20 07:37 Oxygen Flow Rate 0 01/02/20 07:37 Pain Level 7 01/02/20 08:40 Comment 01/02/20 09:00 Intake & Output 01/01/20 01/01/20 01/02/20 11:59 23:59 11:59 Intake Total 1180 / 1180 Output Total 450 / 450 Balance 730 / 730 Weight 72 kg Intake: IV 1000 / 1000 Oral 180 / 180 Output: Urine 450 / 450 Other: Urine Color Yellow Urine Appearance Clear Clear Urine Odor Normal Stool Size Moderate Stool Characteristics Liquid Laboratory Results WBC 7.81 k/cumm (4.4-10.8) 01/02/20 06:05 RBC 3.61 m/cumm (4.00-5.20) L 01/02/20 06:05 Hgb 10.8 g/dL (12.0-15.5) L 01/02/20 06:05 Hct 32.8 % (36.0-46.0) L 01/02/20 06:05 MCV 90.9 fL (80-95) 01/02/20 06:05 MCH 29.9 pg (27.0-33.0) 01/02/20 06:05 MCHC 32.9 g/dL (32.0-36.0) 01/02/20 06:05 RDW 12.9 % (11.7-14.6) 01/02/20 06:05 Plt Count 273 x1000/uL (130-400) 01/02/20 06:05 MPV 11.0 fL (8.0-11.0) 01/02/20 06:05 Immature Gran % 0.3 % 01/02/20 06:05 Neutrophils % 65.9 01/02/20 06:05 Lymphocytes % 21.9 01/02/20 06:05 Monocytes % 9.2 01/02/20 06:05 Eosinophils % 2.4 01/02/20 06:05 Basophils % 0.3 01/02/20 06:05 Absolute Neutrophils 5.15 k/cumm (1.2-6.7) 01/02/20 06:05 Absolute Lymphocytes 1.71 k/cumm (1.2-3.4) 01/02/20 06:05 Absolute Monocytes 0.72 k/cumm (0.11-0.7) H 01/02/20 06:05 Absolute Eosinophils 0.19 k/cumm (0.0-0.7) 01/02/20 06:05 Absolute Basophils 0.02 k/cumm (0.0-0.2) 01/02/20 06:05 Sodium 140 mmol/L (136-145) 01/02/20 06:05 Potassium 3.1 mmol/L (3.5-5.1) L 01/02/20 06:05 Chloride 102 mmol/L (98-107) 01/02/20 06:05 Carbon Dioxide 28.0 mmol/L (21.0-32.0) 01/02/20 06:05 Anion Gap 10.0 mmol/L (3-11) 01/02/20 06:05 BUN 8 mg/dL (7-18) 01/02/20 06:05 Creatinine 0.60 mg/dL (0.55-1.02) 01/02/20 06:05 Estimated GFR/1.73 m2 >= 60.00 (mL/min/1.73m2) 01/02/20 06:05 Glucose 113 mg/dL (74-106) H 01/02/20 06:05 Calcium 8.5 mg/dL (8.5-10.1) 01/02/20 06:05 Magnesium 1.5 mg/dL (1.8-2.4) L 01/02/20 06:05 25-OH Vitamin D Total 40.9 ng/ml (30-100) 01/02/20 06:05
[2020-01-02 10:58] VITALS: BP 132/72; PULSE 97
--- NOTE | 2020-01-02 11:06 | PHACLINREV_ITS ---
Pharmacy Admission Review - Admission Clinical Review (Last Reviewed 01/01/20 @ 16:21 by Yue Ivan NP) Femur fracture, left (Acute) latex Allergy (Unknown, Verified 10/13/19 10:45) propoxyphene HCl [From Darvon] Allergy (Unknown, Verified 10/13/19 10:45) milk Adverse Reaction (Intermediate, Verified 10/13/19 10:45) nausea/diarrhea Height 5 ft 4 in Weight 72 kg - Renal Dosing Renal Dosing: BUN 8 mg/dL (7-18) 01/02/20 06:05 Creatinine 0.60 mg/dL (0.55-1.02) 01/02/20 06:05 Medications needing adjustments: Reviewed (Crcl ~50.4 mL/min current meds okay) - Anticoagulation Anticoagulation: Hgb 10.8 g/dL (12.0-15.5) L 01/02/20 06:05 Hct 32.8 % (36.0-46.0) L 01/02/20 06:05 Plt Count 273 x1000/uL (130-400) 01/02/20 06:05 Creatinine 0.60 mg/dL (0.55-1.02) 01/02/20 06:05 DVT Prohphylaxis: Intervened (held on admission due to possible surgery per H&P, nonoperable per progress note. Will ask provider about this (has SCDs Teds)) Therapeutic Anticoagulation: N/A - Opiate Usage Evaluate Pain Scale/Pains Meds: Reviewed Scheduled Bowel Reg ordered if on Opiates?: No (has PRN meds ordered) - Relevant Labs Sodium 140 mmol/L (136-145) 01/02/20 06:05 Potassium 3.1 mmol/L (3.5-5.1) L 01/02/20 06:05 Chloride 102 mmol/L (98-107) 01/02/20 06:05 Magnesium 1.5 mg/dL (1.8-2.4) L 01/02/20 06:05 Electrolytes, C-Reactive P, ESR: Reviewed (mag and K+ replacement ordered) - DM Control DM Control: Glucose 113 mg/dL (74-106) H 01/02/20 06:05 Finger Stick Blood Glucose 198 Finger Stick Blood Glucose 126 Finger Stick Blood Glucose 126 Finger Stick Blood Glucose 98 Finger Stick Blood Glucose 109 Insulin Dosing: Reviewed (scheduled glargine and sliding scale aspart ordered) - Heart Failure/MN EF%, ADRIA's, B-Blockers, Diuretics: Reviewed (carvedilol, lisinopril) - BP Control BP Control: Blood Pressure 174/80 Blood Pressure 170/85 Blood Pressure 153/74 If elevated: Reviewed (carvedilol dose increased with hold parameters should BP or HR drop too low) - Qtc Review If Elevated: N/A - IV to PO Switch IV Medications: N/A - Home Meds Home Med List reviewed: Reviewed (nortriptyline may enhance the ulcerogenic effects of potassium; consider alternative dosage form of potassium (liquid or effervescent preparations). Multiple NEWSPAPER CARRIERS SUPERVISOR depressants: acetaminophen/codeine, nortriptyline, pregabalin. Separate admin of levothyroxine from multivitamin.) Relevent Home Meds Not ordered & why?: acetaminophen/codeine (prescribed for pain,has other pain meds ordered), diclofenac, HCTZ (per rx history has not been filled since 2019), insulin lispro (has aspart ordered), propranolol (per rx history has not been filled since 2019) - Current meds Current Medication Order Review: Reviewed - Comments Comments/Follow Ups: watch BP, K+ and mag levels
[2020-01-02] MEDS: Insulin Aspart 300 UNITS/3 ML PEN SC ×2 (12:15→17:11)
--- NOTE | 2020-01-02 12:29 | W.INDIABCONS ---
Date of service: 01/02/20 Time of Service: 12:29 Diabetes Inpatient Consult DESCRIPTION/ASSESSMENT: 79 year old female admitted with left femur fracture. PMH: Type 1 Dm since age 6, chronic use of opiate drug, HTN. BMI 27 indicates mild obesity. Fasting sugars in house 126-198 mg/dl. A1C in 2019 6.6%. Home meds include glargine 100 u/ml SC HS, lispro 100 u/ml SQ, MVI. Gale declined diabetes education as had is for 73 years and is very knowledgeable and manages her diabetes well. Following CHO diet with adequate intake. INTERVENTION: Diabetes education consult- pt declined PLAN: Provided pt with technical report writer's contact information if needs help in future with Dm self management Time Spent in Nutritional Counseling and Treatment: 15 min
--- NOTE | 2020-01-02 13:59 | W.ORTHOCONSU ---
Date of service: 01/02/20 Time of Service: 13:59 History of Present Illness History of Present Illness Chief Complaint: Pain proximal to L knee. Narrative: Garrick is a 79-year-old white female who fell through her deck on 12/28/2019. She sustained an abrasion to her right anterior tibia and injury to her left knee/distal femur. She had x-rays ordered by her PCP on 12/28/2019. Plan x-ray showed an undisplaced fracture lateral femoral condyle the supracondylar region. She was sent home with a knee immobilizer. He subsequently had a hypoglycemic episode which resulted in admission to [facility]. [facility] hospital they raised the possibility of surgery for her left femur fracture. She wished to have surgery only by me and requested transfer to [facility]. Patient was admitted to the hospitalist service for further treatment of her diabetes with unstable blood sugars. She was also admitted for the possibility of surgery. CT scan was obtained of both right and left femurs as well as x-ray of her left hip yesterday admission. Garrick said her pain is quite a bit less now intermittent left leg. She wonders if she can go home. The superficial abrasion on the left tan is also not causing much of a problem. She was seen by physical therapy today and had some mild difficulty transferring. Last night she had another episode of hypoglycemia. She says she is felt fine all day. I have repaired a an intertrochanteric fracture of her left hip in 2012. She says she has had no problems with that hip since the surgery. Assessment and Plan Assessment and plan (1) Femur fracture, left: Status: Acute Assessment and plan: Assessment: Undisplaced supracondylar fracture left distal femur. This fracture does not extend across of the medial side. This does not require operative intervention. Restricted weightbearing and protection with immobilizer splint is all as needed. She has superficial abrasion of the right tan and I just needs local dressing care. Since she does not need surgery I think she can be discharged home when the medical service is satisfied with her control of blood sugars. I have discussed the discharge with Yue Ivan NP. She would like to watch her overnight since she had a hypoglycemic episode last night. She also wants therapist to work with her one more time in terms of transfers. Plan: Probable discharge home tomorrow as discussed above. Gale is in full agreement with the discharge plan. Should follow-up with me in my office in 2 weeks after discharge. [facility] Medical History Anxiety and depression (Acute) Closed fracture of right proximal humerus (Resolved ~09/2018) History of fracture of left hip (Resolved) HTN (hypertension) (Chronic) Hypothyroidism (Chronic) Dx'ed 14yo Hoahaoism (Chronic) Refused blood products. Neuropathy (Acute) Peripheral neuropathy (Chronic) Insensate lower extremities, chronic pain managed with Lyrica and Tylenol with codeine No. 4. S/P ORIF (open reduction internal fixation) fracture (Inactive) L hip Trigger finger, right [place]Chronic[place] [facility] [place]; splint recommended (pt wanted to avoid surgery) Vitamin D deficiency (Chronic) Surgical History H/O sinus surgery (Acute) H/O thumb surgery (Acute) History of cataract surgery (Inactive) History of cholecystectomy (Chronic) History of cholecystectomy (Inactive) History of gastric bypass (Inactive) History of sinus surgery (Inactive) History of tonsillectomy (Chronic) S/P wrist surgery (Acute) Family History Father Diabetes Type 2 Heart disease Mother Stroke Social History Smoking/Tobacco Use Status: Never Alcohol Intake: current Alcohol Intake frequency: a few times a week Alcohol type: wine Drug use: Never Substance use type: does not use Household members: spouse Housing: house Number of Children: 2 What type of physical activity do you participate in: none Do you feel safe in your relationship?: Yes Exam Narrative Exam Narrative: She has gauze dressings on her right tan. There is minimal blood staining. She has no swelling below the dressings in her right ankle and foot. She has smooth non-irritable range of motion of the right hip. She has no effusion in the right knee motion 0 to 130 degrees of flexion stable ligaments. Left knee is in a knee immobilizer splint. She does not demonstrate a significant effusion today. She has minimal localized tenderness over the lateral supracondylar region of the femur on palpation. She has full extension and flexes to about 100 degrees before experiencing some mild discomfort in the knee. The left hip range of motion smooth non-interval without restriction. There is no swelling in the left ankle and foot. She has good sensation and circulation to the left foot. CT scan of the right femur is reviewed. No fractures no abnormalities are seen. CT scan of the left femur is reviewed. There is a break in the cortex laterally at the supracondylar region this fracture does not extend to the medial side. In fact I do not think it even goes down to the lateral femoral condyle as was described by the radiologist. X-rays of the left hip show a well-healed intertrochanteric fracture treated with compression screw and sideplate. There is no complications with the hardware. Results Last Vital Signs Temp 36.7 C 01/02/20 07:37 Pulse 97 H 01/02/20 10:58 Resp 18 01/02/20 07:37 BP 132/72 01/02/20 10:58 Pulse Ox 95 01/02/20 07:37 Labs Result diagrams: 01/02/20 06:05 01/02/20 06:05 Labs: Laboratory Results - last 24 hr 01/02/20 01/02/20 01/02/20 06:05 06:05 06:05 WBC 7.81 RBC 3.61 L Hgb 10.8 L Hct 32.8 L MCV 90.9 MCH 29.9 MCHC 32.9 RDW 12.9 Plt Count 273 MPV 11.0 Immature Gran % 0.3 Neutrophils % 65.9 Lymphocytes % 21.9 Monocytes % 9.2 Eosinophils % 2.4 Basophils % 0.3 Absolute Neutrophils 5.15 Absolute Lymphocytes 1.71 Absolute Monocytes 0.72 H Absolute Eosinophils 0.19 Absolute Basophils 0.02 Sodium 140 Potassium 3.1 L Chloride 102 Carbon Dioxide 28.0 Anion Gap 10.0 BUN 8 Creatinine 0.60 Estimated GFR/1.73 m2 >= 60.00 Glucose 113 H Calcium 8.5 Magnesium 1.5 L 25-OH Vitamin D Total 40.9
[2020-01-02] MEDS: Heparin 5,000 UNITS/ML VIAL 5000 UNITS SC ×2 (14:40→21:27)
[2020-01-02] MEDS: Normal Saline Flush 10 ML SYR IVP (14:44)
--- NOTE | 2020-01-02 14:47 | CHAPLAIN ---
Gale was in bed listening to a book on tape when I visited. She is a Jehovah Witness and her is a set up mechanic, she tell me after in introduce myself. Gale fell through her deck, after stepping on a rotten board, and fractured her left leg. She said she is planning on being discharged tomorrow and will be okay at home with her . Gale was very pleasant, but said she was not in need of a anesthesiologist attending visit.
[2020-01-02 15:15] VITALS: BP 145/73; PULSE 78; RESP 18; TEMP 36.4; O2SAT 94
[2020-01-02] MEDS: Acetaminophen 325 MG TAB PO ×2 (16:22→21:41)
[2020-01-02] MEDS: Bacitracin 1 PACKET (16:42)
--- NOTE | 2020-01-02 16:46 | PTTR_ITS ---
Date of service: 01/02/20 Time of Service: 04:46 PT Notes Visit Reasons: FEMUR FX Inpatient Physical Therapy Treatment Note [facility] Date: 01/02/2020 PRECAUTIONS: NWB on L LE. Restricted mobility to transfers only per orthopedic surgeon. SUBJECTIVE: Gale is more confident about being able to transfer from bed to wheelchair and back using her front wheeled walker. She feels that she and her will be able to manage at home fine with transfers. She remains open to receiving home health physical therapy services to continue with home training and exercises. OBJECTIVE: Knee brace on L. TEDS on L LE. PAIN: 3/10 with movement. Bed Mobility/Transfers: Supine to sit standby assist, able to use BUE for support Sit to supine standby assist, able to use BUE for support Sit to stand standby assist, able to use BUE for support, requires front wheeled walker, minimal verbal cueing for hand placement and weight bearing precaution Stand to sit standby assist, able to use BUE for support, minimal verbal cueing for hand placement and weight bearing precaution Bed to chair standby assist, able to use BUE for support, requires front wheeled walker, minimal verbal cueing for hand placement and weight bearing precaution Chair to bed standby assist, able to use BUE for support, requires front wheeled walker, minimal verbal cueing for hand placement and weight bearing precaution Gait: Patient only tolerated pivoting twice, sidestepping once, and backing up twice onto bedside recliner to transfer with report of 4/10 pain on the left knee using front- wheeled walker and contact-guard assist of this PT, TERRA Santos providing standby assist for safety. NWB on left LE. Assessment: Gale demonstrates need for front wheeled walker for for all transfer activities, difficulty with walking due to nonweightbearing status related to recent fracture, balance impairment, and generalized weakness of the B UE/LE muscle groups resulting from admitting diagnoses. Gale is a 79-year-old female who directly transferred from [facility] for management of a nondisplaced fracture of the distal femur on the left side sustained from a fall on 12/25/2019. CT scan showed nondisplaced fracture of the lateral aspect of the distal femoral metaphysis to the articular surface of the lateral femoral condyle. Patient was given a knee brace on the left side and was ordered by Dr. Foy on 12/28/2019 to be non weight bearing on the left LE. Referral for physical therapy was sent today for safe discharge planning and mobility retraining. Plan of Care/Treatment Plan: Continue with PT POC as established. DISCHARGE RECOMMENDATIONS: No equipment needs at this time. Patient will benefit from home health PT services in order to progress mobility level using least restrictive assistive ambulatory device, assess home safety, identify additional equipment needs, and establish a functional maintenance program that will increase ability of patient to remain at home. TREATMENT CODE/TIME: 86312 x 18 minutes beginning at 4:46 PM.
[2020-01-02 19:05] VITALS: BP 145/70; PULSE 74; RESP 18; TEMP 37; O2SAT 95
[2020-01-02] MEDS: Carvedilol 25 MG TAB PO (19:53)
[2020-01-02] MEDS: Insulin Glargine 300 UNITS/3 ML PEN 13 UNITS SC (21:27)
[2020-01-03] MEDS: Levothyroxine 125 MCG TAB PO (06:41)
[2020-01-03] MEDS: Heparin 5,000 UNITS/ML VIAL 5000 UNITS SC (06:41)
[2020-01-03 07:04] LABS: Abs Immature Grans 0.03 k/cumm (0.0-0.09); Absolute Basophil Count 0.04 k/cumm (0.0-0.2); Absolute Eosinophil Count 0.38 k/cumm (0.0-0.7); Absolute Monocyte Count 0.69 k/cumm (0.11-0.7); Absolute Neutrophil Count 3.83 k/cumm (1.2-6.7); Basophils % 0.5; Eosinophils % 5.1; HCT 31.7 % (36.0-46.0); HGB 10.5 g/dL (12.0-15.5); Immature Grans % 0.4 %; Lymphocytes % 33.5; Mean Corp. HGB Concentration 33.1 g/dL (32.0-36.0); Mean Corpuscular Hemoglobin 30.3 pg (27.0-33.0); Mean Corpuscular Volume 91.6 fL (80-95); Mean Platelet Volume 10.6 fL (8.0-11.0); Monocytes % 9.2; Neutrophils % 51.3; Platelet Count 308 x1000/uL (130-400); RBC 3.46 m/cumm (4.00-5.20); White Blood Cell Count 7.47 k/cumm (4.4-10.8)
[2020-01-03 07:15] LABS: Anion Gap 4.6 mmol/L (3-11); BUN 8 mg/dL (7-18); CO2 30.4 mmol/L (21.0-32.0); CREATININE 0.65 mg/dL (0.55-1.02); Calcium 8.7 mg/dL (8.5-10.1); Chloride 103 mmol/L (98-107); Glucose 98 mg/dL (74-106); Potassium 3.5 mmol/L (3.5-5.1); Sodium 138 mmol/L (136-145)
[2020-01-03 07:17] LABS: Magnesium 1.9 mg/dL (1.8-2.4)
[2020-01-03] MEDS: Nortriptyline 10 MG CAP 20 MG PO (07:41)
[2020-01-03] MEDS: Carvedilol 25 MG TAB PO (07:42)
[2020-01-03] MEDS: Omeprazole 20 MG CAPCR PO (07:42)
[2020-01-03] MEDS: Multivitamin TAB 1 TAB PO (07:42)
[2020-01-03] MEDS: Lisinopril 20 MG TAB 40 MG PO (07:42)
[2020-01-03] MEDS: Potassium Chloride 20 MEQ TABCR PO (07:42)
[2020-01-03] MEDS: Pregabalin 50 MG CAP 150 MG PO (07:43)
[2020-01-03] MEDS: Acetaminophen 325 MG TAB PO ×2 (07:49→12:07)
[2020-01-03] MEDS: oxyCODONE 5 MG TAB PO (07:50)
[2020-01-03 08:10] VITALS: BP 168/81; PULSE 75; RESP 17; TEMP 36.7; O2SAT 93
--- NOTE | 2020-01-03 09:26 | DSE_ITS ---
Date of service: 01/03/20 Time of Service: 09:26 DS: Diagnosis Discharge Diagnosis (1) Femur fracture, left: Status: Acute Asessment and Plan: non operative, knee immobilizer, non weight bearing, pain managed, PT/OT, walker/commode (2) HTN (hypertension): Status: Chronic Asessment and Plan: propanolol and hctz stopped, coreg increased to 25 mg po bid (3) Abrasion of right lower extremity: Status: Acute Asessment and Plan: wound care bid, bacitracin and telfa, cling wrap. no sign of infection, healing well. (4) Type 1 diabetes mellitus with hypoglycemia: Status: Acute Asessment and Plan: Fasting sugars in house 126-198 mg/dl. A1C in 2019 6.6%. Home meds include glargine 100 u/ml SC HS, lispro 100 u/ml SQ, MVI. Gale declined diabetes education as had is for 73 years and is very knowledgeable and manages her diabetes well. Following CHO diet with adequate intake. Discharge Plan Disposition Patient Disposition: HOME W/HOME HEALTH SERVICE Condition: Fair Discharge Details Reason For Visit: FEMUR FX Admit Date/Time: 01/01/20 15:38 Admit Provider: Sergio Flores Attending Provider: Sergio Flores Primary Care Provider: Johana Earl Hospital Course Hospital Course: This is a 79 year old female transferred from [facility] by ground EMS for left femur fracture. Her injury was sustained after falling on a deck through planks. She sustained bilateral abrasions worse to right lower extremity. There was a concern that there would need to be surgical repair of her fracture so she requested transfer here to Dr Foy service has he has operated on her previously. She was accepted under hospitalist services and transferred accordingly. She underwent her orthopedic consultation and injury was found not to require operative intervention. Plan is for restricted weightbearing and knee immobilizer. She will need to continue with wound management to her lower extremities. Her hospital course was complicated with episode of hypoglycemia but she is a longtime type I diabetic who reports no issues with management at home. Her pain has been managed with oral pain medication. Case management has been following and plan is for her to discharge to home with home health services. Changes to her medication include increasing Coreg for hypertension, her hydrochlorothiazide and propanolol were discontinued. Home health nursing will follow her medication changes and chronic disease management closely. She presented to [facility] with a indwelling Joya catheter which was discontinued at discharge. She will follow-up outpatient with orthopedics and her primary care provider. discharge plan discussed with DR Carrasco who is in agreement. Home Meds and New Rx's Prescriptions: New oxycodone 5 mg Tablet 5 mg PO Q6H PRN PRNQty: 12 RF: 0 acetaminophen [Tylenol] 325 mg Tablet 650 mg PO Q4H PRN PRNQty: 0 RF: 0 Continued potassium chloride 20 mEq tablet,ER particles/crystals 20 meq PO DAILY RF: 0 multivitamin Tablet 1 tab PO DAILY RF: 0 Lantus U-100 Insulin 100 unit/mL solution See Rx Instructions SC QHS RF: 0 pregabalin 150 mg capsule 150 mg PO BID 30 Days Qty: 60 RF: 5 lisinopril 40 mg tablet 40 mg PO DAILY Qty: 90 RF: 3 levothyroxine [Synthroid] 125 mcg tablet 125 mcg PO DAILY Qty: 90 RF: 0 diclofenac sodium 1 % gel 2 gm TP QID PRN (Reason: hand pain) 13 Days Qty: 100 RF: 11 nortriptyline 10 mg capsule 20 mg PO DAILY RF: 0 Humalog U-100 Insulin 100 unit/mL cartridge See Rx Instructions subcut DAILY RF: 0 Glucagon Emergency Kit (human) 1 MG kit 1 mg . DIRECTED PRNRF: 0 Changed carvedilol 12.5 mg tablet 25 mg PO BID Qty: 0 RF: 0 Discontinued propranolol 20 mg tablet 20 mg PO BID Qty: 180 RF: 3 hydrochlorothiazide 25 mg tablet 25 mg PO DAILY RF: 0 acetaminophen-codeine 300-30 mg tablet 1 tab PO TID MDD 3 tablets/day PRN (Reason: pain) 28 Days Qty: 84 RF: 0 acetaminophen-codeine 300-30 mg tablet 1 tab PO BID MDD 2 tabs/day PRN (Reason: for acute pain) 14 Days Qty: 28 RF: 0 No Action (DME) blood sugar diagnostic [Contour Next Test Strips] Strip See Rx Instructions .ROUTE .MEDSUPPLY Qty: 200 RF: 2 Discharge Instructions Instructions: Leg Fracture (DC) Additional Instructions: dressing changes BID to right lower extremity: Bacitracin to right lower leg, cover with Telfa, and wrap with Kerlex until healed wear knee immobilizer as directed walker at all times for gait safety and stability. non weight bearing on left lower extremity. Restricted mobility to transfers only per orthopedic surgeon. wear RAJENDRA stockings daily as directed. off at night, on in the morning. Stand Alone Forms: Nursing Discharge Form Referrals: Federico Foy MD [ [facility] STAFF PHYSICIAN] - 01/18/20 11:15 am (2 weeks) Concepcion Malhotra [NURSE PRACTITIONER] - 01/10/20 3:30 pm Activity:: knee immobilizer Equipment/Supplies:: commode Diet:: Carb Counting Discharge Orders Discharge Orders: Discharge Order (Routine); Ordered 01/03/20 Ordered By: Nia Martínez DS: Summary Status at Discharge Functional status at discharge: uses cane/walker Overall status at discharge: patient is progressing back to baseline Mental Status: mental status grossly normal Speech and Movement: speech and movement normal Mood: congruent mood Affect: normal affect Exam Const General: cooperative, healthy appearing, comfortable, no acute distress and well developed Nutritional Appearance: average body habitus Orientation: alert, awake and oriented x3 HENMT Head: normal to inspection, normocephalic and atraumatic Mouth: oral mucosae normal Resp Effort & Inspection: normal respiratory effort and able to speak in complete sentences Auscultation: clear to auscultation bilaterally Cardio Rate: regular rate Rhythm: regular rhythm GI Inspection: normal to inspection Palpation: soft Auscultation: normal bowel sounds General: other (joya draining medium yellow urine) Skin Lesions: lesion noted (right lower extremity, abrasion, skin tear, wound bed red beefy, no slough,) Rashes: no rashes Trauma: abrasion Neuro General: patient alert, patient awake and patient oriented x3 Cranial Nerves: CN's II-XI intact bilaterally Gait: gait assisted Method: walker and other (left knee immobilizer intact, trace edema, good sensation and pulse. ) Extrem General: normal to inspection Left lower extremity: abnormal ROM (knee immobilized, non weight-bearing) Psych Appearance: grossly normal and well kempt Mental Status: mental status grossly normal Speech and Movement: speech and movement normal Mood: congruent mood Affect: normal affect Attitude: cooperative Thought Process: normal Thought Content: normal Insight: insight good Judgment: judgment good DS: Data Vitals/I&O Vitals and I&O: Vital Signs Temperature 36.7 C 01/03/20 08:10 Temperature Source Tympanic 01/03/20 08:10 Pulse 75 01/03/20 08:10 Pulse Rhythm Regular 01/02/20 21:12 Respiratory Rate 17 01/03/20 08:10 Respiratory Effort Non-Labored 01/02/20 21:12 Respiratory Depth Normal 01/02/20 21:12 Respiratory Pattern Normal 01/02/20 21:12 Blood Pressure 168/81 H 01/03/20 08:10 Pulse Oximetry 93 L 01/03/20 08:10 Oxygen Delivery Method Room Air 01/03/20 08:10 Oxygen Flow Rate 0 01/03/20 08:10 Pain Level 0 01/03/20 08:10 Comment 01/02/20 12:15 Intake & Output 01/02/20 01/02/20 01/03/20 11:59 23:59 11:59 Intake Total 1420 / 3068.333 1648.333 / 3068.333 360 / 360 Output Total 450 / 1000 550 / 1000 500 / 500 Balance 970 / 2068.333 1098.333 / 2068.333 -140 / -140 Intake: IV 1000 / 2168.333 1168.333 / 2168.333 Oral 420 / 900 480 / 900 360 / 360 Output: Urine 450 / 1000 550 / 1000 500 / 500 Other: Urine Color Yellow Light Neena Light Neena Urine Appearance Clear Clear Cloudy Urine Odor Normal Normal Normal Stool Size Moderate Stool Characteristics Liquid Voiding Methods Indwelling Catheter Data Completed and Pending Labs on day of discharge: Labs from last 24 hours 01/03/20 01/03/20 01/03/20 06:10 06:10 06:10 WBC 7.47 RBC 3.46 L Hgb 10.5 L Hct 31.7 L MCV 91.6 MCH 30.3 MCHC 33.1 RDW 13.0 Plt Count 308 MPV 10.6 Immature Gran % 0.4 Neutrophils % 51.3 Lymphocytes % 33.5 Monocytes % 9.2 Eosinophils % 5.1 Basophils % 0.5 Absolute Neutrophils 3.83 Absolute Lymphocytes 2.50 Absolute Monocytes 0.69 Absolute Eosinophils 0.38 Absolute Basophils 0.04 Sodium 138 Potassium 3.5 Chloride 103 Carbon Dioxide 30.4 Anion Gap 4.6 BUN 8 Creatinine 0.65 Estimated GFR/1.73 m2 >= 60.00 Glucose 98 Calcium 8.7 Magnesium 1.9 25-OH Vitamin D Total 01/02/20 06:05 WBC RBC Hgb Hct MCV MCH MCHC RDW Plt Count MPV Immature Gran % Neutrophils % Lymphocytes % Monocytes % Eosinophils % Basophils % Absolute Neutrophils Absolute Lymphocytes Absolute Monocytes Absolute Eosinophils Absolute Basophils Sodium Potassium Chloride Carbon Dioxide Anion Gap BUN Creatinine Estimated GFR/1.73 m2 Glucose Calcium Magnesium 25-OH Vitamin D Total 40.9 PFSH Medical History Anxiety and depression (Acute) Closed fracture of right proximal humerus (Resolved ~09/2018) History of fracture of left hip (Resolved) HTN (hypertension) (Chronic) Hypothyroidism (Chronic) Dx'ed 14yo Buddhism (Chronic) Refused blood products. Neuropathy (Acute) Peripheral neuropathy (Chronic) Insensate lower extremities, chronic pain managed with Lyrica and Tylenol with codeine No. 4. S/P ORIF (open reduction internal fixation) fracture (Inactive) L hip Trigger finger, right (Chronic) [facility] Ortho consult 07/2018; splint recommended (pt wanted to avoid surgery) Vitamin D deficiency (Chronic) Surgical History H/O sinus surgery (Acute) H/O thumb surgery (Acute) History of cataract surgery (Inactive) History of cholecystectomy (Chronic) History of cholecystectomy (Inactive) History of gastric bypass (Inactive) History of sinus surgery (Inactive) History of tonsillectomy (Chronic) S/P wrist surgery (Acute) Family History Father Diabetes Type 2 Heart disease Mother Stroke Social History Smoking/Tobacco Use Status: Never Alcohol Intake: current Alcohol Intake frequency: a few times a week Alcohol type: wine Drug use: Never Substance use type: does not use Household members: spouse Housing: house Number of Children: 2 What type of physical activity do you participate in: none Do you feel safe in your relationship?: Yes
--- NOTE | 2020-01-03 09:44 | PDOC.HHF2F ---
Home Health Certification Home Health Certification: 1. Encounter Date and Reason I certify that DYAN MORALES was seen by Nia Martínez on 01/03/20 and that I had a [id number] encounter with this patient that meets the physician face to face encounter requirements. 2. Clinical Findings Supporting Skilled Need and Homebound Status I certify that home health services are medically necessary, include either intermittent assisted and/or physical/speech therapy, and that this patient is homebound in that absences from the home require considerable and taxing effort and are infrequent or of short duration, or are attributable to the need to receive medical care. [X] (a) Attached documentation from encounter provides clinical findings supporting skilled need and homebound status (including what assistance patient requires to leave the home). The encounter with the patient was in whole, or in part, for the following medical condition, which is the primary reason for home health care: FEMUR FX Assisted: routine nursing for medication oversight after recent changes to antihypertensives, wound management, diabetes management. Physical and Occupational Therapy: to progress mobility level using least restrictive assistive ambulatory device, assess home safety, identify additional equipment needs, and establish a functional maintenance program that will increase ability of patient to remain at home Homebound: patient is unable to leave home without assistance and ambulation is severely limited d/t pain, non weightbearing left lower extremity, decreased strength and endurance, impaired transfers and inability to negotiate stairs. 3. Certification and Authentication I certify that I composed the above information based on my clinical judgement relating to this patient's medical condition and, if applicable, clinical findings communicated to me by the NPP or inpatient physician who performed the Home Health Referral. All further orders will be obtained through (Community Based Physician - PCP)
[2020-01-03] MEDS: Bacitracin 30 GM TUBE TP (10:23)
[2020-01-03] MEDS: Loperamide 2 MG CAP 4 MG PO (12:01)
[2020-01-03] MEDS: Insulin Aspart 300 UNITS/3 ML PEN SC (12:02)
--- NOTE | 2020-01-03 12:12 | PT.INTREAT ---
Date of service: 01/03/20 Time of Service: 12:12 PT Notes Visit Reasons: FEMUR FX Inpatient Physical Therapy Treatment Note [facility] Date: 01/03/20 PRECAUTIONS:NWB L SUBJECTIVE: Gale is very adamant that she does not want to go anywhere but home upon discharge. She feels that she has the appropriate supports and equipment at home to be successful and safe. She also feels that she is getting stronger. OBJECTIVE: PAIN: No c/o pain BED MOBILITY/TRANSFERS Supine-sit: I Sit-supine: S in a.m.; I in p.m. Sit-stand: SBA Stand-sit:SBA Bed-Chair: SBA Chair-bed: SBA GAIT Assistive Device: FWW Weight bearing: NWB L Assist: SBA Distance: 5' x3 in a.m.; 3' x2 in p.m. Deviation: Hopping on R THEREX: Patient completed ankle pumping exercise. ASSESSMENT: Patient tolerated session well, without complaint. She was able to progress her gait distance from stand-pivot transfers to distances of up to 5' at a time with FWW support and SBA, maintaining appropriate weight bear status. PLAN: As per primary PT TREATMENT CODE/TIME: Session 1: 35 minutes; 52369 x2 Session 2: 15 minutes; [id number]
--- NOTE | 2020-01-03 14:08 | PDOC.CMDIS ---
- If Service Date Differs Date of service: 01/03/20 Time of Service: 14:08 LACE Index Scoring Tool - Questions: Length of Stay (in days): 2 Acuity (Admit via E.D.?): No E.D. Visits: 1 - Answers: Total Score: 3 Risk of Readmission: Low Risk Care Management Discharge Reason for Hospitalization: Fractured femur Discharge Plan: Gale will return home with new home health PT and nursing. She will follow up with her PCP and surgeon and transport via private vehicle. Patient/Family Education Needs: Discharge plan, limitations, follow up plan,. Ask Me Three
--- NOTE | 2020-01-04 08:26 | PT.INDS ---
Date of service: 01/04/20 PT Notes Visit Reasons: FEMUR FX PT Inpatient Discharge Summary Date: 01/04/2020 Date of service: 01/02/2020 and 01/03/2020 This is a clinical summary of care provided on the duration of dates listed above. No charge was made in the completion of this documentation. He Referring Doctor: Yue Ivan NP PT Orders: PT CONSULT: Limited ability. Eval/treat Precautions: Fall. Standard. NWB on L LE until per orthopedic surgeon as of 12/28/2019, awaiting orthopedic surgeons WB recommendations. Patient Profile/Admitting Diagnosis: Gale is a 79-year-old female who directly transferred from [facility] for management of a nondisplaced fracture of the distal femur on the left side sustained from a fall on 12/25/2019. CT scan showed nondisplaced fracture of the lateral aspect of the distal femoral metaphysis to the articular surface of the lateral femoral condyle. Patient was given a knee brace on the left side and was ordered by Dr. Foy on 12/28/2019 to be non weight bearing on the left LE. Referral for physical therapy was sent today for safe discharge planning and mobility retraining. PMHX: Medical History Anxiety and depression (Acute) Closed fracture of right proximal humerus (Resolved ~09/2018) History of fracture of left hip (Resolved) HTN (hypertension) (Chronic) Hypothyroidism (Chronic) Dx'ed 14yo [employer] (Chronic) Refused blood products. Neuropathy (Acute) Peripheral neuropathy (Chronic) Insensate lower extremities, chronic pain managed with Lyrica and Tylenol with codeine No. 4. S/P ORIF (open reduction internal fixation) fracture (Inactive) L hip Trigger finger, right (Chronic) [facility] [place] [facility] consult 07/2018; splint recommended (pt wanted to avoid surgery) Vitamin D deficiency (Chronic) Surgical History H/O sinus surgery (Acute) H/O thumb surgery (Acute) History of cataract surgery (Inactive) History of cholecystectomy (Chronic) History of cholecystectomy (Inactive) History of gastric bypass (Inactive) History of sinus surgery (Inactive) History of tonsillectomy (Chronic) S/P wrist surgery (Acute) Social History/Home Situation: Gale lives with in a private home with a ramp to enter. Patient has a motorized wheelchair which she is able to operate over said ramp, outside, and inside of the house as she needs to. She is independent with all self-care activities at home and is managing meal preparation and cooking while seated on her motorized wheelchair. She is otherwise able to use her front wheeled walker for short distance ambulation from bed to the bedside chair and from outside of her bathroom to the toilet seat or the shower area. Her takes care of grocery shopping. Friends and neighbors are willing to help with anything as needed. She also has sons and daughters who are able to help out with chores and laundry as needed. She states that, excluding this last fall on , she has not had any for the past 12 months. Equipment Owned/DME: Motorized wheelchair, front wheeled walker, single-point cane, ramp, walk-in shower with grab bars, shower chair, electric reclining chair Subjective: NT Objective: General Observation: NT Mental Status: NT Pain: NT ROM: Right Upper Extremity: Shoulder Flexion WFL. Shoulder abduction WFL. Elbow flexion WFL. Wrist flexion WFL. Opening and closing of hand WFL. Left Upper Extremity: Shoulder Flexion WFL. Shoulder abduction WFL. Elbow flexion WFL. Wrist flexion WFL. Opening and closing of hand WFL. Right Lower Extremity: Hip flexion WFL. Hip abduction WFL. Knee flexion WFL. Ankle dorsiflexion WFL. Ankle plantarflexion WFL. Left Lower Extremity: Hip flexion WFL. Hip abduction WFL. Knee flexion NT. Ankle dorsiflexion WFL. Ankle plantarflexion WFL. Strength: Right Upper Extremity: Shoulder flexors 4/5. Shoulder abductors 4/5. Elbow flexors 4/5. Elbow extensors 4/5. 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 Left Upper Extremity:Shoulder flexors 4/5. Shoulder abductors 4/5. Elbow flexors 4/5. Elbow extensors 4/5. 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 Right Lower Extremity: Hip flexors 4/5. Hip abductors 4/5. Knee flexors 4/5. Knee extensors 4/5. Ankle dorsiflexors 5/5. Ankle plantarflexors 5/5. Left Lower Extremity:Hip flexors 4/5. Hip abductors 4/5. Knee flexors NT. Knee extensors NT. Ankle dorsiflexors 5/5. Ankle plantarflexors 5/5. Sensation: Patient reports diminished sensation to bilateral lower extremities due to chronic peripheral neuropathy. Bed Mobility/Transfers: Supine to sit independent, able to use BUE for support Sit to supine independent, able to use BUE for support Sit to stand standby assist, able to use BUE for support, requires front wheeled walker Stand to sit standby assist, able to use BUE for support, minimal verbal cueing for hand placement and weight bearing precaution Bed to chair standby assist, able to use BUE for support, requires front wheeled walker Chair to bed standby assist, able to use BUE for support, requires front wheeled walker Gait: 3 feet x 2 SBA with FWW NWB on L LE. L knee brace on. Balance: Static Sitting: Normal Dynamic Sitting: Normal Static Standing: Fair Dynamic Standing: Fair Assessment: Gale demonstrates need for front wheeled walker for for all transfer activities, difficulty with walking due to nonweightbearing status related to recent fracture, balance impairment, and generalized weakness of the B UE/LE muscle groups resulting from admitting diagnoses. Gale is a 79-year-old female who directly transferred from [facility] for management of a nondisplaced fracture of the distal femur on the left side sustained from a fall on 12/25/2019. CT scan showed nondisplaced fracture of the lateral aspect of the distal femoral metaphysis to the articular surface of the lateral femoral condyle. Patient was given a knee brace on the left side and was ordered by Dr. Foy on 12/28/2019 to be non weight bearing on the left LE. Referral for physical therapy was sent today for safe discharge planning and mobility retraining. Patient presents with clinical signs and symptoms consistent with current/admitting diagnoses that have resulted to mobility limitations, gait instability, generalized weakness, and impairment of motor control as demonstrated by the following impairment level findings: 1. Decreased strength to B UE/LE major muscle groups 2. Impaired standing balance 3. Impaired activity tolerance 4. Inability to bear weight on left LE per orthopedic surgeon's order Impairments are contributing to the following functional limitations: 1. Increased dependence with transfers 2. Inability to safely ambulate without assistive device and physical assistance 3. Increase completion time for mobility ADL performance 4. Increased fall risk Goals: Goals X1 day 1. Supine-Sit independent MET 2. Sit-Supine independent MET 3. Sit-Stand standby assist using BUE for support with a walker MET 4. Stand-Sit standby assist using BUE for support with a walker MET 5. Bed-Chair standby assist using BUE for support with a walker MET 6. Chair-Bed standby assist using BUE for support with a walker MET 7. Standby assist gait on level surface with use of least restrictive device for at least 10 feet without report of pain nor dyspnea NOT MET 8. Good static and dynamic standing balance/tolerance NOT MET DISCHARGE RECOMMENDATIONS: No equipment needs at this time. Patient will benefit from home health PT services in order to progress mobility level using least restrictive assistive ambulatory device, assess home safety, identify additional equipment needs, and establish a functional maintenance program that will increase ability of patient to remain at home. TREATMENT CODE/TIME: NC. Thank you very much for this referral. Regine Felix PT, DPT, CLT [facility] [place], [place]
== END 2020-01-03 13:40 | disposition home health service (06) | DRG 534 ==
PROVIDERS: Nurse Practitioner Family; Admitting Provider Internal Medicine; PCP Nurse Practitioner Family; Visit Provider Internal Medicine
DX: S72.454A Nondisplaced supracondylar fracture without intracondylar extension of lower end of right femur, initial encounter for closed fracture (principal); W13.8XXA Fall from, out of or through other building or structure, initial encounter; I10 Essential (primary) hypertension; E03.9 Hypothyroidism, unspecified; E55.9 Vitamin D deficiency, unspecified; E10.649 Type 1 diabetes mellitus with hypoglycemia without coma; Z71.3 Dietary counseling and surveillance; Z79.891 Long term (current) use of opiate analgesic
CPT/HCPCS: 36415; 73552; 80048; 82306; 97162; 97530; 99221; 99223; 99233; 99239; 73700; 83735; 85025; J1644; J3475; J3480

== ENCOUNTER 2020-01-18 11:55 | Outpatient (CLI) | payer MEDICARE, SELFPAY ==
--- NOTE | 2020-01-18 11:30 | DI.RAD_ITS ---
EXAM: XR KNEE LT 2V AP,LAT CLINICAL HISTORY: F/U FRACTURE. TECHNIQUE: 2D digital imaging was performed. COMPARISON: CR XR KNEE LT 3V AP,LAT,[place] from 12/28/2019 FINDINGS: There has been no change in the alignment of the distal femoral fracture.. There is mild stable defo rmity at the articular surface of the lateral femoral condyle. No new abnormalities are seen. DATA REPOSITORY: RADIATION DOSE DELIVERED:
== END 2020-01-18 12:15 ==
PROVIDERS: PCP Nurse Practitioner Family; Referring Provider Nurse Practitioner Family; Visit Provider Orthopaedic Surgery
DX: S72.425D Nondisplaced fracture of lateral condyle of left femur, subsequent encounter for closed fracture with routine healing (principal); W13.8XXD Fall from, out of or through other building or structure, subsequent encounter; I10 Essential (primary) hypertension
CPT/HCPCS: 99214; 73560

== ENCOUNTER 2020-01-31 18:14 | Outpatient (REF) | payer MEDICARE, SELFPAY ==
[2020-02-02 17:59] LABS: COVID-19 RT-PCR Result Not Detected ((See Note))
== END 2020-01-31 18:34 ==
LOC: LBN 18:14
PROVIDERS: PCP Nurse Practitioner Family; Visit Provider Nurse Practitioner Family
DX: Z03.818 Encounter for observation for suspected exposure to other biological agents ruled out (principal)
CPT/HCPCS: U0003